=== PATIENT | male | born 1955 | race Caucasian/White ===

== ENCOUNTER 2017-05-22 13:18 | Emergency (ER) | payer MEDICAID ==
[~2017-05-22] VITALS: Ht 193 cm; Wt 107.2 kg
[~2017-05-22 13:18] MED LIST: AMLO5TAB PO; ASPI-845 PO; CYCL-1 PO; HYDR-565 PO; LISI-604 PO; ONDA4TAB12 PO; TRAM50TA2 PO
[2017-05-22 14:03] LABS: CLARITY,URINE CLEAR (Clear); COLOR,URINE YELLOW (Yellow); GLUCOSE, URINE NEGATIVE (Neg); KETONES,URINE NEGATIVE (Neg); LEUKOCYTE ESTERASE ,URINE SMALL (Neg); NITRITES, URINE NEGATIVE (Neg); OCCULT BLOOD,URINE SMALL (Neg); PH,URINE 5.5 (4.8-8.0); PROTEIN,URINE NEGATIVE (Neg); UROBILINOGEN,URINE 0.2 E.U/dL (0.2-1.0)
[2017-05-22 14:05] LABS: UA COLLECTION TYPE CLN CATCH MIDSTREAM
[2017-05-22 14:14] LABS: BACTERIA,URINE 1+ /HPF (Neg); SQUAMOUS EPITHELIAL CELL,UR FEW /LPF (FEW); WBC,URINE 50-100 /HPF (0-4)
[2017-05-22] MEDS ORDERED: LEVO500T2 PO (15:22)
[2017-05-22] MEDS ORDERED: HYDROcodone/acetaminophen 10/325mg tab PO ONE (15:30)
[2017-05-22] MEDS ORDERED: levoFLOXACIN 250mg tablet PO ONE (15:30)
[2017-05-22] MEDS ORDERED: HYDR-565 PO (15:32)
[2017-05-22 15:56] VITALS: BP 149/84
== END 2017-05-22 15:59 | disposition home or self-care (01) ==
LOC: ER 13:18
DX: N45.1 Epididymitis (principal); G43.909 Migraine, unspecified, not intractable, without status migrainosus; I48.91 Unspecified atrial fibrillation; I10 Essential (primary) hypertension; G89.29 Other chronic pain; Z79.82 Long term (current) use of aspirin
CPT/HCPCS: 76870; 81001; 87088; 99285

== ENCOUNTER 2017-08-01 10:16 | Emergency (ER) | payer MEDICAID, OTHER ==
[~2017-08-01] VITALS: Ht 185.4 cm; Wt 109.0 kg
[2017-08-01] MEDS ORDERED: LIDOcaine 1.5% w/epinephrine 1:200,000 5ml ampul IJ ONE (12:50)
[2017-08-01] MEDS ORDERED: TETanus/Pertussis (Acell)/Diphther VAC/PF (Tdap-Adult) 0.5ml syringe IM ONE (12:50)
[2017-08-01] MEDS ORDERED: bacitracin 15gm ointment TP ONE (12:50)
[2017-08-01] MEDS ORDERED: CLIN150C2 PO (13:33)
[2017-08-01] MEDS ORDERED: HYDR-3965 PO (13:33)
[2017-08-01] MEDS ORDERED: HYDROcodone/acetaminophen 5mg/325mg tablet PO ONE (13:35)
[2017-08-01 13:42] VITALS: BP 170/100
== END 2017-08-01 13:43 | disposition home or self-care (01) ==
LOC: ER 10:16
DX: L02.414 Cutaneous abscess of left upper limb (principal); I10 Essential (primary) hypertension; G89.29 Other chronic pain; I48.91 Unspecified atrial fibrillation; G43.909 Migraine, unspecified, not intractable, without status migrainosus; Z98.890 Other specified postprocedural states; Z79.82 Long term (current) use of aspirin; Z79.899 Other long term (current) drug therapy
CPT/HCPCS: 10060; 90471; 90715; 99283; A6266; A6449; J3490

== ENCOUNTER 2018-06-27 10:38 | Emergency (ER) | payer MEDICAID ==
[~2018-06-27] VITALS: Ht 193 cm; Wt 109.1 kg
[~2018-06-27 10:38] MED LIST changes: +HYDR-4353 PO; -HYDR-565 PO
[2018-06-27] MEDS ORDERED: normal saline 1000ML IV soln IVB ONE (11:35)
[2018-06-27 12:27] LABS: EOSINOPHILS # (AUTO) 0.2 X10'3 (0-0.9); EOSINOPHILS % (AUTO) 0.9 % (0-6)
[2018-06-27 12:31] LABS: BASOPHILS # (AUTO) 0.2 X10'3 (0-0.2); BASOPHILS % (AUTO) 0.9 % (0-1); HEMATOCRIT 48.5 % (42.0-52.0); HEMOGLOBIN 15.8 g/dl (14.0-17.9); LYMPHOCYTES # (AUTO) 9.1 X10'3 (1.1-4.8); LYMPHOCYTES % (AUTO) 49.6 % (21-51); MEAN CORPUSCULAR HEMOGLOBIN 28.5 PG (27.0-31.0); MEAN CORPUSCULAR HGB CONC 32.6 g/dL (33.0-36.5); MEAN CORPUSCULAR VOLUME 87.3 FL (78-98); MEAN PLATELET VOLUME 7.9 FL (7.4-10.4); MONOCYTES # (AUTO) 1.1 X10'3 (0-0.9); NEUTROPHILS # (AUTO) 7.8 X10'3 (1.8-7.7); NEUTROPHILS % (AUTO) 42.6 % (42-75); PLATELET COUNT 259 X10'3 (140-440); RED BLOOD COUNT 5.55 X10'6 (4.70-6.10); RED CELL DISTRIBUTION WIDTH 14.5 % (11.5-14.5); WHITE BLOOD COUNT 18.3 X10'3 (4.5-11.0)
[2018-06-27 12:41] LABS: PARTIAL THROMBOPLASTIN TIME 27 SECONDS (22-32)
[2018-06-27 12:44] LABS: ALANINE AMINOTRANSFERASE 27 U/L (12-78); ALBUMIN 3.8 G/DL (3.4-5.0); ALBUMIN/GLOBULIN RATIO 1.4 (1.1-1.5); ALKALINE PHOSPHATASE 94 IU/L (46-116); ANION GAP 8 (8-16); ASPARTATE AMINO TRANSFERASE 21 U/L (10-37); BILIRUBIN,TOTAL 0.3 MG/DL (0.1-1.0); BLOOD UREA NITROGEN 25 MG/DL (7-18); BUN/CREATININE RATIO 18.2 (5.4-32.0); CALCIUM 8.9 MG/DL (8.5-10.1); CHLORIDE 109 MMOL/L (99-107); CREATININE 1.37 MG/DL (0.60-1.10); GLUCOSE 93 MG/DL (70-104); POTASSIUM 4.1 MMOL/L (3.5-5.1); SODIUM 141 MMOL/L (135-145); TOTAL CARBON DIOXIDE 24.2 MMOL/L (24-32); TOTAL PROTEIN 6.6 G/DL (6.4-8.2); eGFR 52 ML/MIN
[2018-06-27 12:47] LABS: TROPONIN I < 0.04 NG/ML (0.0-0.05)
[2018-06-27 12:54] LABS: ETHANOL < 0.010 GM/DL (0.0-0.010)
[2018-06-27 13:03] LABS: CLARITY,URINE SLIGHTLY CLOUDY (Clear); COLOR,URINE YELLOW (Yellow); GLUCOSE, URINE NEGATIVE (Neg); KETONES,URINE NEGATIVE (Neg); LEUKOCYTE ESTERASE ,URINE NEGATIVE (Neg); NITRITES, URINE NEGATIVE (Neg); OCCULT BLOOD,URINE TRACE-LYSED (Neg); PH,URINE 5.5 (4.8-8.0); PROTEIN,URINE TRACE mg/dl (Neg); UROBILINOGEN,URINE 0.2 E.U/dL (0.2-1.0)
[2018-06-27 13:04] LABS: UA COLLECTION TYPE CLN CATCH MIDSTREAM
[2018-06-27 13:10] LABS: SQUAMOUS EPITHELIAL CELL,UR NONE SEEN /LPF (FEW)
[2018-06-27 13:16] LABS: BACTERIA,URINE FEW /HPF (Neg); WBC CLUMPS,URINE FEW /HPF (NEGATIVE)
[2018-06-27 14:00] VITALS: BP 163/108
[2018-06-27 14:12] LABS: PLATELET ESTIMATE NORMAL; TOTAL CELLS COUNTED 100
[2018-06-27 14:13] LABS: SMUDGE CELLS 2+
[2018-06-27] MEDS ORDERED: LISI40TA4 PO ×3 (15:02→15:09)
[2018-06-27] MEDS ORDERED: diazepam 5mg tablet PO ONE (15:10)
== END 2018-06-27 15:20 | disposition home or self-care (01) ==
LOC: ER 10:38
DX: I10 Essential (primary) hypertension (principal); D72.820 Lymphocytosis (symptomatic); R47.9 Unspecified speech disturbances; G89.29 Other chronic pain; I48.91 Unspecified atrial fibrillation; G43.909 Migraine, unspecified, not intractable, without status migrainosus; F17.210 Nicotine dependence, cigarettes, uncomplicated; Z79.899 Other long term (current) drug therapy; Z79.82 Long term (current) use of aspirin; Z98.890 Other specified postprocedural states
CPT/HCPCS: 36415; 70450; 70544; 70551; 71045; 80053; 80320; 81001; 82140; 82948; 84484; 85025; 85610; 85730; 87088; 93005; 99284; J7030

== ENCOUNTER 2019-09-23 22:20 | Inpatient (IN) | payer BC, MEDICAID ==
[~2019-09-23] VITALS: Ht 193 cm; Wt 113.6 kg
[~2019-09-23 22:20] MED LIST changes: +LISI40TA4 PO
[2019-09-23] MEDS ORDERED: metoprolol tartrate 1mg/ml inj IV ONE (22:35)
[2019-09-23] MEDS ORDERED: furosemide 10 MG/1 ML 10ml inj IV ONE (22:35)
[2019-09-23 23:16] LABS: BASOPHILS # (AUTO) 0.1 X10'3 (0-0.2); BASOPHILS % (AUTO) 0.4 % (0-1); LYMPHOCYTES % (AUTO) 54.1 % (21-51); MEAN CORPUSCULAR HGB CONC 31.8 g/dL (33.0-36.5); MONOCYTES # (AUTO) 0.8 X10'3 (0-0.9); MONOCYTES % (AUTO) 4.5 % (2-12); NEUTROPHILS # (AUTO) 6.6 X10'3 (1.8-7.7)
[2019-09-23 23:17] LABS: EOSINOPHILS # (AUTO) 0.2 X10'3 (0-0.9); EOSINOPHILS % (AUTO) 1.5 % (0-6); HEMATOCRIT 47.1 % (42.0-52.0); MEAN PLATELET VOLUME 8.5 FL (7.4-10.4); NEUTROPHILS % (AUTO) 39.5 % (42-75); PLATELET COUNT 222 X10'3 (140-440); RED BLOOD COUNT 5.35 X10'6 (4.70-6.10); RED CELL DISTRIBUTION WIDTH 15.7 % (11.5-14.5); WHITE BLOOD COUNT 16.7 X10'3 (4.5-11.0)
[2019-09-23] MEDS ORDERED: CefTRIAXone 2gm/D5W 50ml 50 ML IV ONE (23:30)
[2019-09-23] MEDS ORDERED: diltiazem 5mg/ml 5ml inj. IV ONE (23:30)
[2019-09-23] MEDS ORDERED: azithromycin/NS 500mg/250ml 250 ML IV ONE (23:30)
[2019-09-23 23:31] LABS: TOTAL CELLS COUNTED 100
[2019-09-23] MEDS ORDERED: CefTRIAXone inj 2,000 MG in normal saline 100ml IV soln 100 ML IV ONE (23:31)
[2019-09-23 23:32] LABS: PLATELET ESTIMATE NORMAL
[2019-09-23 23:44] LABS: ALANINE AMINOTRANSFERASE 68 U/L (12-78); ALBUMIN 3.7 G/DL (3.4-5.0); ALBUMIN/GLOBULIN RATIO 1.4 (1.1-1.5); ALKALINE PHOSPHATASE 106 IU/L (46-116); ANION GAP 6 (8-16); ASPARTATE AMINO TRANSFERASE 26 U/L (10-37); BILIRUBIN,TOTAL 0.5 MG/DL (0.1-1.0); BLOOD UREA NITROGEN 30 MG/DL (7-18); BUN/CREATININE RATIO 18.9 (5.4-32.0); CALCIUM 8.2 MG/DL (8.5-10.1); CHLORIDE 111 MMOL/L (99-107); CREATININE 1.59 MG/DL (0.60-1.10); GLUCOSE 102 MG/DL (70-104); POTASSIUM 4.2 MMOL/L (3.5-5.1); SODIUM 144 MMOL/L (135-145); TOTAL CARBON DIOXIDE 26.9 MMOL/L (24-32); TOTAL PROTEIN 6.4 G/DL (6.4-8.2); eGFR 44 ML/MIN
[2019-09-23] MEDS ORDERED: diltiazem-D5W 125mg/125ml 125 ML IV SCH (23:55)
[2019-09-23] MEDS ORDERED: diltiazem-NS 100mg/100ml 100 ML IV SCH (23:55)
[2019-09-24] VITALS (8 sets, daily range): BP systolic 116–161; BP diastolic 68–104
--- NOTE | 2019-09-24 00:20 | NUR ---
PT STOOD UP AND MOVED AROUND AND THEN WHEN GOT BACK TO BED REPORTED CP , 7 OUT OF 10 TO HIS LEFT CHEST, NON RADIATING AND NO OTHER SYMPTOMS. VSS, EGK COMPLETED AND DR. DORMAN UPDATED. NITRO PRN ORDERED AND PT GIVEN 1 TAB AND CP DOWN TO 4 OUT OF 10. PT AWAITING HOSPITALIST FOR ADMISSION. CARDIZIEM GTT INFUSING, ROCEFIN JUST FINISHED AND ZITHROMAX STARTED.
[2019-09-24] MEDS: nitroGLYCERIN 0.4mg SUBLingual tab SL PRN ×2 (00:38→00:46)
[2019-09-24] MEDS ORDERED: potassium CL 10mEq/100ml bag 100 ML IV PRN ×2 (00:45)
[2019-09-24] MEDS ORDERED: acetaminophen 325mg tablet PO PRN (00:45)
[2019-09-24] MEDS ORDERED: magnesium 2GM in 50ml NS 50 ML IV PRN (00:45)
[2019-09-24] MEDS ORDERED: magnesium 4gm in 100ml NS 100 ML IV PRN (00:45)
[2019-09-24] MEDS ORDERED: potassium Cl 20 mEq SR tablet PO PRN ×2 (00:45)
[2019-09-24] MEDS ORDERED: ondansetron/PF 4mg/2ml inj IV PRN (00:45)
[2019-09-24] MEDS ORDERED: magnesium Cl slow-release 64mg tablet PO PRN (00:45)
[2019-09-24] MEDS ORDERED: NO HOME MEDS (00:49)
--- NOTE | 2019-09-24 01:25 | NUR ---
PT NOW ADMITTED AND AWAITING IPA. DR. ROMERO CALLED TO UPDATE OF EVENTS IN MY NOTE 1 HR AGO ABOUT PT HAVING CP THAT WAS RELIEVED WITH 2 TABS OF NITRO. PT HAD REPORTED TO ME HE HAS BEEN HAVING EPISODES OF CP THAT ARE INTERMITTENT AND SHORT OVER THE PAST FEW MONTHS, BUT HAS NEVER HAD AN EPISODE SUCH THIS TONIGHT THAT SCARED HIM.
--- NOTE | 2019-09-24 01:52 | NUR ---
PT WITH STABLE VS. CONTINUES ON CARDIZIEM GTT AND ASITHROMYCIN STILL INFUSING. IN AFIB AT 85 HR WITH FREQUENT PVC'S. 6 HR TROP DUE AT 0430. PT AWAITING IPA.
--- NOTE | 2019-09-24 05:28 | NUR ---
rec'd report from KIKO Plata RN. per report vitals are stable. pt should arrive shortly to floor
--- NOTE | 2019-09-24 05:35 | NUR ---
PT TAKEN TO ROOM 3028 B PCU CARIDIZEM DRIP RUNNING AT 5 ML / HR HUNG AT 0046 VSS 138/85 RR23 HR 86 97 % RA PRO B 6085/ CA 8.2 WBC 16.7 TROP <0.04 BUN 30
--- NOTE | 2019-09-24 05:45 | NUR ---
pt arrived to the unit via wheelchair and ambulated to bed. refused gown at this time. pt voided in bathroom. settled into bed and oriented to unit. Robin carter at 5mc. Dr. Wyman to bedside to speak with pt.
--- NOTE | 2019-09-24 06:19 | NUR ---
Problems reprioritized. Patient report given, questions answered & plan of care reviewed with Marina HAWKINS.
--- NOTE | 2019-09-24 06:23 | NUR ---
Patient in room PCU 3028. I have received report from Ana HAKWINS and had the opportunity to ask questions and assume patient care.
[2019-09-24] MEDS: K and/or MAG REPLACEMENT MC SCH ×2 (07:47→20:07)
--- NOTE | 2019-09-24 09:10 | NUR ---
Dr Almanza at bedside with RN, received verbal orders to start the patient on PO Cardizem and transition off the Cardizem gtt, orders for IV Lasix 20mg BID and tramadol prn for pain. Also received orders for lab draws. Will continue to monitor the patient closely.
[2019-09-24] MEDS: furosemide 20 MG/2 ML vial IV SCH ×2 (09:27→19:11)
[2019-09-24] MEDS: traMADol 50MG tablet PO PRN ×2 (09:27→14:52)
[2019-09-24] MEDS: diltiazem 30mg tablet PO SCH ×3 (09:27→19:12)
[2019-09-24 10:23] LABS: BASOPHILS # (AUTO) 0.1 X10'3 (0-0.2); BASOPHILS % (AUTO) 0.6 % (0-1); EOSINOPHILS # (AUTO) 0.3 X10'3 (0-0.9); EOSINOPHILS % (AUTO) 2.1 % (0-6); HEMATOCRIT 46.8 % (42.0-52.0); LYMPHOCYTES # (AUTO) 8.2 X10'3 (1.1-4.8); LYMPHOCYTES % (AUTO) 52.6 % (21-51); MEAN CORPUSCULAR HEMOGLOBIN 28.2 PG (27.0-31.0); MEAN PLATELET VOLUME 8.3 FL (7.4-10.4); MONOCYTES # (AUTO) 0.8 X10'3 (0-0.9); MONOCYTES % (AUTO) 4.8 % (2-12); NEUTROPHILS # (AUTO) 6.3 X10'3 (1.8-7.7); NEUTROPHILS % (AUTO) 39.9 % (42-75); PLATELET COUNT 206 X10'3 (140-440); RED BLOOD COUNT 5.31 X10'6 (4.70-6.10); RED CELL DISTRIBUTION WIDTH 15.4 % (11.5-14.5); WHITE BLOOD COUNT 15.7 X10'3 (4.5-11.0)
[2019-09-24 10:30] LABS: ALANINE AMINOTRANSFERASE 62 U/L (12-78); ALBUMIN 3.3 G/DL (3.4-5.0); ALBUMIN/GLOBULIN RATIO 1.1 (1.1-1.5); ALKALINE PHOSPHATASE 96 IU/L (46-116); ANION GAP 7 (8-16); ASPARTATE AMINO TRANSFERASE 25 U/L (10-37); BILIRUBIN,TOTAL 0.5 MG/DL (0.1-1.0); BLOOD UREA NITROGEN 28 MG/DL (7-18); BUN/CREATININE RATIO 19.4 (5.4-32.0); CALCIUM 8.4 MG/DL (8.5-10.1); CHLORIDE 106 MMOL/L (99-107); CREATININE 1.44 MG/DL (0.60-1.10); GLUCOSE 95 MG/DL (70-104); POTASSIUM 3.8 MMOL/L (3.5-5.1); SODIUM 140 MMOL/L (135-145); TOTAL CARBON DIOXIDE 27.1 MMOL/L (24-32); TOTAL PROTEIN 6.3 G/DL (6.4-8.2); eGFR 49 ML/MIN
[2019-09-24 11:34] LABS: PLATELET ESTIMATE NORMAL; TOTAL CELLS COUNTED 100
[2019-09-24 11:35] LABS: SMUDGE CELLS 2+
--- NOTE | 2019-09-24 18:08 | NUR ---
Problems reprioritized. Patient report given, questions answered & plan of care reviewed with Janusz HAWKINS.
--- NOTE | 2019-09-24 18:11 | NUR ---
Patient in room PCU 3028. I have received report from Marina HAWKINS and had the opportunity to ask questions and assume patient care.
[2019-09-24] MEDS: apixaban 5mg tablet PO SCH (19:11)
[2019-09-24 19:35] LABS: CLARITY,URINE CLEAR (Clear); COLOR,URINE YELLOW (Yellow); GLUCOSE, URINE NEGATIVE (Neg); KETONES,URINE NEGATIVE (Neg); LEUKOCYTE ESTERASE ,URINE NEGATIVE (Neg); NITRITES, URINE NEGATIVE (Neg); OCCULT BLOOD,URINE NEGATIVE (Neg); PROTEIN,URINE NEGATIVE (Neg); UROBILINOGEN,URINE 0.2 E.U/dL (0.2-1.0)
[2019-09-24 19:38] LABS: UA COLLECTION TYPE CLN CATCH MIDSTREAM
[2019-09-25] MEDS: traMADol 50MG tablet PO PRN (00:21)
[2019-09-25 02:00] VITALS: BP 132/73
[2019-09-25] MEDS: diltiazem 30mg tablet PO SCH ×4 (02:32→19:15)
[2019-09-25 05:04] LABS: BASOPHILS # (AUTO) 0.1 X10'3 (0-0.2); BASOPHILS % (AUTO) 0.4 % (0-1); MONOCYTES # (AUTO) 0.9 X10'3 (0-0.9)
[2019-09-25 05:09] LABS: EOSINOPHILS # (AUTO) 0.4 X10'3 (0-0.9); HEMATOCRIT 45.4 % (42.0-52.0); HEMOGLOBIN 14.7 g/dl (14.0-17.9); LYMPHOCYTES # (AUTO) 10.4 X10'3 (1.1-4.8); LYMPHOCYTES % (AUTO) 58.9 % (21-51); MEAN CORPUSCULAR HEMOGLOBIN 28.4 PG (27.0-31.0); MEAN CORPUSCULAR HGB CONC 32.3 g/dL (33.0-36.5); MEAN PLATELET VOLUME 8.1 FL (7.4-10.4); MONOCYTES % (AUTO) 5.1 % (2-12); NEUTROPHILS # (AUTO) 5.9 X10'3 (1.8-7.7); NEUTROPHILS % (AUTO) 33.6 % (42-75); PLATELET COUNT 217 X10'3 (140-440); RED BLOOD COUNT 5.17 X10'6 (4.70-6.10); RED CELL DISTRIBUTION WIDTH 15.6 % (11.5-14.5); WHITE BLOOD COUNT 17.6 X10'3 (4.5-11.0)
[2019-09-25 05:28] LABS: ALBUMIN 3.2 G/DL (3.4-5.0); ANION GAP 6 (8-16); BLOOD UREA NITROGEN 29 MG/DL (7-18); BUN/CREATININE RATIO 21.5 (5.4-32.0); CALCIUM 7.8 MG/DL (8.5-10.1); CHLORIDE 107 MMOL/L (99-107); CHOLESTEROL 108 MG/DL (0-200); CREATININE 1.35 MG/DL (0.60-1.10); GLUCOSE 85 MG/DL (70-104); HDL CHOLESTEROL 36 MG/DL (35-60); LDL CHOLESTEROL 65 MG/DL (50-100); POTASSIUM 4.2 MMOL/L (3.5-5.1); SODIUM 141 MMOL/L (135-145); TRIGLYCERIDES 40 MG/DL (20-135); eGFR 53 ML/MIN
--- NOTE | 2019-09-25 06:16 | NUR ---
Problems reprioritized. Patient report given, questions answered & plan of care reviewed with Hilda HAWKINS.
--- NOTE | 2019-09-25 06:28 | NUR ---
Patient in room PCU 3028. I have received report from Janusz HAWKINS and had the opportunity to ask questions and assume patient care.
[2019-09-25 07:00] VITALS: BP 139/93
[2019-09-25] MEDS: furosemide 20 MG/2 ML vial IV SCH ×2 (07:55→19:14)
[2019-09-25] MEDS: apixaban 5mg tablet PO SCH ×2 (07:55→19:15)
[2019-09-25] MEDS: K and/or MAG REPLACEMENT MC SCH ×2 (08:00→19:53)
[2019-09-25 08:30] LABS: TOTAL CELLS COUNTED 100
[2019-09-25 08:31] LABS: PLATELET ESTIMATE NORMAL
[2019-09-25 08:32] LABS: SMUDGE CELLS 3+
--- NOTE | 2019-09-25 08:52 | NUR ---
Dr. Almanza at bedside with patient and nurse. New orders Celebrax 200mg now and then daily to help with joint pain. [place] if new medications is ineffective, let MD be aware of outcome. MD aware of WBC 17.6, No new orders at this time. Patient is to be up and walking around unit to further assess ability to be discharged. PT is aware and PT eval done today. Will continue to monitor.
[2019-09-25] MEDS: celeCOXIB 100mg capsule PO SCH (09:49)
[2019-09-25] MEDS ORDERED: pneumococcal 23-VAL P-sac vacc 25 mcg/0.5ml vial IMVAC ONE (10:00)
--- NOTE | 2019-09-25 10:43 | NUR ---
Dr. Almanza aware of patient and ambulation. Patient was able to ambulate around unit with no assistance needed. Patient did state a SOB upon resting, but overall no pain in chest and no s/s of SOB during ambulation. During assessment patient stated that he would feel more comfortable staying another night stay here at hospital. Dr. Almanza was notified on the completion of ambulation and agreed with patient to stay another night with continue therapy. New Orders [place] 5 PRN for pain Q4hr. We will continue to monitor.
[2019-09-25 11:00] VITALS: BP 143/87
[2019-09-25] MEDS: HYDROcodone/acetaminophen 5mg/325mg tablet PO PRN ×2 (13:41→19:16)
[2019-09-25 15:00] VITALS: BP 129/69
[2019-09-25 18:00] VITALS: BP 141/78
--- NOTE | 2019-09-25 18:04 | NUR ---
Problems reprioritized. Patient report given, questions answered & plan of care reviewed with Yarelis omer .
--- NOTE | 2019-09-25 18:13 | NUR ---
Patient in room PCU 3028. I have received report from Hilda HAWKINS and had the opportunity to ask questions and assume patient care.
[2019-09-25 22:00] VITALS: BP 141/78
[2019-09-26] MEDS: diltiazem 30mg tablet PO SCH ×2 (01:42→07:41)
[2019-09-26] MEDS: HYDROcodone/acetaminophen 5mg/325mg tablet PO PRN ×2 (01:43→07:40)
[2019-09-26 02:17] VITALS: BP 145/90
[2019-09-26 05:10] LABS: BASOPHILS # (AUTO) 0.1 X10'3 (0-0.2); BASOPHILS % (AUTO) 0.3 % (0-1); HEMOGLOBIN 15.2 g/dl (14.0-17.9); MEAN PLATELET VOLUME 8.2 FL (7.4-10.4)
[2019-09-26 05:12] LABS: EOSINOPHILS # (AUTO) 0.4 X10'3 (0-0.9); EOSINOPHILS % (AUTO) 2.1 % (0-6); HEMATOCRIT 47.9 % (42.0-52.0); LYMPHOCYTES # (AUTO) 13.9 X10'3 (1.1-4.8); LYMPHOCYTES % (AUTO) 65.2 % (21-51); MEAN CORPUSCULAR HEMOGLOBIN 28.4 PG (27.0-31.0); MEAN CORPUSCULAR HGB CONC 31.8 g/dL (33.0-36.5); MEAN CORPUSCULAR VOLUME 89.4 FL (78-98); MONOCYTES # (AUTO) 0.8 X10'3 (0-0.9); MONOCYTES % (AUTO) 3.7 % (2-12); NEUTROPHILS # (AUTO) 6.1 X10'3 (1.8-7.7); NEUTROPHILS % (AUTO) 28.7 % (42-75); PLATELET COUNT 227 X10'3 (140-440); RED BLOOD COUNT 5.36 X10'6 (4.70-6.10); RED CELL DISTRIBUTION WIDTH 15.5 % (11.5-14.5); WHITE BLOOD COUNT 21.4 X10'3 (4.5-11.0)
[2019-09-26 05:33] LABS: ALBUMIN 3.2 G/DL (3.4-5.0); ANION GAP 5 (8-16); BLOOD UREA NITROGEN 30 MG/DL (7-18); BUN/CREATININE RATIO 20.8 (5.4-32.0); CALCIUM 8.4 MG/DL (8.5-10.1); CHLORIDE 104 MMOL/L (99-107); CREATININE 1.44 MG/DL (0.60-1.10); GLUCOSE 92 MG/DL (70-104); SODIUM 139 MMOL/L (135-145); TOTAL CARBON DIOXIDE 29.9 MMOL/L (24-32); eGFR 49 ML/MIN
--- NOTE | 2019-09-26 06:05 | NUR ---
Problems reprioritized. Patient report given, questions answered & plan of care reviewed with Hilda HAWKINS.
--- NOTE | 2019-09-26 06:26 | NUR ---
Patient in room PCU 3028. I have received report from Janusz HAWKINS and had the opportunity to ask questions and assume patient care.
[2019-09-26 06:38] LABS: PLATELET ESTIMATE NORMAL; TOTAL CELLS COUNTED 100
[2019-09-26 07:00] VITALS: BP 141/93
[2019-09-26] MEDS: apixaban 5mg tablet PO SCH (07:40)
[2019-09-26] MEDS: celeCOXIB 100mg capsule PO SCH (07:40)
[2019-09-26] MEDS: furosemide 20 MG/2 ML vial IV SCH (07:42)
[2019-09-26] MEDS: K and/or MAG REPLACEMENT MC SCH (08:00)
--- NOTE | 2019-09-26 10:42 | NUR ---
Dr. Almanza at bedside with patient and Nurse. orders is to discharge pt and to follow up and take all medications as planned. Will continue to provide care til discharge instructions are received.
[2019-09-26] MEDS ORDERED: HYDR-4383 PO (11:00)
[2019-09-26] MEDS ORDERED: DILT240C90 PO (11:00)
[2019-09-26] MEDS ORDERED: CELE100C98 PO (11:00)
[2019-09-26] MEDS ORDERED: FURO-150 PO (11:00)
[2019-09-26] MEDS ORDERED: APIX5TAB3 PO (11:00)
--- NOTE | 2019-09-26 11:56 | NUR ---
Patient OK to discharge per MD Orders. Patients tele was removed and returned and PIV taken out. Patient tolerated well. All discharge instructions were gone over and the medications were verified to patient and pharmacy. Patient was educated on the purpose of visit and the follow up instructions. Patient verbalized an understanding of following up with PCP within a week to stabilize A fib and cancer and other health issues. Patients items were collected and sent with patient. Patient was escorted via wheelchair by RN to the front of the lobby and into a private vehicle attended by his . , Jamia, was also educated on discharge instructions and medication regiment.
== END 2019-09-26 12:04 | disposition home or self-care (01) | DRG 292 ==
LOC: ER 22:21 → ED HOLD 09-24 00:54 → PCU 3S 09-24 05:36
PROVIDERS: ADMIT Internal Medicine; ATTEND Internal Medicine
PROC: 3E0234Z Introduction of Serum, Toxoid and Vaccine into Muscle, Percutaneous Approach (ICD-10-PCS; principal; 2019-09-25)
DX: I13.0 Hypertensive heart and chronic kidney disease with heart failure and stage 1 through stage 4 chronic kidney disease, or unspecified chronic kidney disease (principal); C85.90 Non-Hodgkin lymphoma, unspecified, unspecified site; C92.10 Chronic myeloid leukemia, BCR/ABL-positive, not having achieved remission; N17.9 Acute kidney failure, unspecified; I48.0 Paroxysmal atrial fibrillation; I27.20 Pulmonary hypertension, unspecified; G47.30 Sleep apnea, unspecified; N18.3 Chronic kidney disease, stage 3 (moderate); R06.89 Other abnormalities of breathing; G43.909 Migraine, unspecified, not intractable, without status migrainosus; M54.9 Dorsalgia, unspecified; M25.50 Pain in unspecified joint; G89.29 Other chronic pain; I50.813 Acute on chronic right heart failure; I73.9 Peripheral vascular disease, unspecified; Z79.01 Long term (current) use of anticoagulants; Z79.899 Other long term (current) drug therapy; Z87.891 Personal history of nicotine dependence; Z23 Encounter for immunization
CPT/HCPCS: 36415; 71045; 80048; 80053; 80061; 81003; 83735; 83880; 84145; 84484; 85025; 87081; 90732; 93005; 93306; 96365; 96368; 96375; 97116; 97161; 97530; 99291; G0378; J0456; J0696; J1940; J3490

== ENCOUNTER 2019-10-21 17:29 | Emergency (ER) | payer BC, MEDICAID ==
[~2019-10-21] VITALS: Ht 193 cm; Wt 118.2 kg
[~2019-10-21 17:29] MED LIST changes: -AMLO5TAB PO; +APIX5TAB3 PO; -ASPI-845 PO; +CELE100C98 PO; -CYCL-1 PO; +DILT240C90 PO; +FURO-150 PO; -HYDR-4353 PO; +HYDR-4383 PO; -LISI-604 PO; -LISI40TA4 PO; -ONDA4TAB12 PO; -TRAM50TA2 PO
[2019-10-21] MEDS ORDERED: diltiazem-D5W 125mg/125ml 125 ML IV ONE (17:51)
[2019-10-21] MEDS ORDERED: diltiazem-NS 100mg/100ml 100 ML IV SCH (17:54)
[2019-10-21] MEDS ORDERED: diltiazem 5mg/ml 5ml inj. IV ONE ×3 (17:55→18:55)
[2019-10-21 18:17] LABS: BASOPHILS # (AUTO) 0.2 X10'3 (0-0.2); EOSINOPHILS # (AUTO) 0.3 X10'3 (0-0.9); MONOCYTES # (AUTO) 1.3 X10'3 (0-0.9); MONOCYTES % (AUTO) 5.5 % (2-12); RED CELL DISTRIBUTION WIDTH 15.1 % (11.5-14.5); WHITE BLOOD COUNT 23.5 X10'3 (4.5-11.0)
[2019-10-21 18:19] LABS: BASOPHILS % (AUTO) 0.8 % (0-1); EOSINOPHILS % (AUTO) 1.3 % (0-6); HEMATOCRIT 50.8 % (42.0-52.0); HEMOGLOBIN 16.2 g/dl (14.0-17.9); LYMPHOCYTES # (AUTO) 11.3 X10'3 (1.1-4.8); LYMPHOCYTES % (AUTO) 48.1 % (21-51); MEAN CORPUSCULAR HEMOGLOBIN 28.2 PG (27.0-31.0); MEAN CORPUSCULAR VOLUME 88.1 FL (78-98); NEUTROPHILS # (AUTO) 10.4 X10'3 (1.8-7.7); NEUTROPHILS % (AUTO) 44.3 % (42-75); PLATELET COUNT 263 X10'3 (140-440); RED BLOOD COUNT 5.76 X10'6 (4.70-6.10)
[2019-10-21 18:38] LABS: ALANINE AMINOTRANSFERASE 42 U/L (12-78); ALBUMIN 3.9 G/DL (3.4-5.0); ALBUMIN/GLOBULIN RATIO 1.2 (1.1-1.5); ALKALINE PHOSPHATASE 124 IU/L (46-116); ANION GAP 11 (8-16); ASPARTATE AMINO TRANSFERASE 17 U/L (10-37); BILIRUBIN,TOTAL 0.7 MG/DL (0.1-1.0); BLOOD UREA NITROGEN 26 MG/DL (7-18); BUN/CREATININE RATIO 18.8 (5.4-32.0); CALCIUM 8.8 MG/DL (8.5-10.1); CHLORIDE 106 MMOL/L (99-107); CREATININE 1.38 MG/DL (0.60-1.10); GLUCOSE 80 MG/DL (70-104); POTASSIUM 3.8 MMOL/L (3.5-5.1); SODIUM 142 MMOL/L (135-145); TOTAL PROTEIN 7.2 G/DL (6.4-8.2); eGFR 52 ML/MIN
[2019-10-21 18:46] LABS: MAGNESIUM 1.9 MG/DL (1.5-2.4)
[2019-10-21] MEDS ORDERED: FURO-150 PO (19:07)
[2019-10-21] MEDS ORDERED: APIX5TAB3 PO (19:07)
[2019-10-21] MEDS ORDERED: DILT240C88 PO (19:08)
[2019-10-21] MEDS ORDERED: furosemide 10 MG/1 ML 10ml inj IV ONE (19:15)
[2019-10-21] MEDS ORDERED: diltiazem CD 300mg capsule (once-daily) PO STA (19:36)
[2019-10-21 19:38] LABS: PLATELET ESTIMATE NORMAL
[2019-10-21] MEDS ORDERED: diltiazem CD 180mg cap (once-daily) PO STA (19:42)
[2019-10-21] MEDS ORDERED: DILT300C35 PO (19:46)
[2019-10-21 19:52] VITALS: BP 115/54
[2019-10-22 10:58] LABS: SMUDGE CELLS 2+; TOTAL CELLS COUNTED 100
[2019-10-22 10:59] LABS: BURR CELLS 1+; ELLIPTOCYTES FEW
--- NOTE | 2019-10-22 11:28 | NUR ---
Lab called regarding change in patients differential. Results had been wrong so it was being adjusted. Spoke with Dr. Blue regarding results and increase in neutrophils, he stated due to the fact that patient did not have Bands. No further action was needed.
== END 2019-10-21 19:54 | disposition home or self-care (01) ==
LOC: ER 17:30
DX: I48.91 Unspecified atrial fibrillation (principal); G43.909 Migraine, unspecified, not intractable, without status migrainosus; I10 Essential (primary) hypertension; G89.29 Other chronic pain; F41.9 Anxiety disorder, unspecified; Z86.2 Personal history of diseases of the blood and blood-forming organs and certain disorders involving the immune mechanism; Z98.890 Other specified postprocedural states; Z79.01 Long term (current) use of anticoagulants; Z79.899 Other long term (current) drug therapy
CPT/HCPCS: 36415; 71045; 80053; 83735; 83880; 84484; 85007; 85025; 93005; 96365; 96375; 96376; 99285; J1940; J3490

== ENCOUNTER 2019-11-16 15:08 | Emergency (ER) | payer BC, MEDICAID ==
[~2019-11-16] VITALS: Ht 193 cm; Wt 129.1 kg
[~2019-11-16 15:08] MED LIST changes: -CELE100C98 PO; +DILT240C88 PO; -DILT240C90 PO; +DILT300C35 PO; -HYDR-4383 PO
--- NOTE | 2019-11-16 15:21 | NUR ---
{null, PT HAS GIVEN PERMISSION FOR ALL INFORMATION REGARDING HIS STATUS BE GIVEN TO HIS ISIDRO RAY: OR [phone] PHONE CONTACT }
[2019-11-16] MEDS ORDERED: furosemide 40mg/4ml inj IV ONE (15:30)
[2019-11-16] MEDS ORDERED: furosemide 10 MG/1 ML 10ml inj IV ONE (15:35)
[2019-11-16 16:01] LABS: BASOPHILS # (AUTO) 0.1 X10'3 (0-0.2); BASOPHILS % (AUTO) 0.7 % (0-1); EOSINOPHILS # (AUTO) 0.2 X10'3 (0-0.9); HEMOGLOBIN 15.4 g/dl (14.0-17.9); WHITE BLOOD COUNT 16.7 X10'3 (4.5-11.0)
[2019-11-16 16:03] LABS: EOSINOPHILS % (AUTO) 1.2 % (0-6); HEMATOCRIT 48.5 % (42.0-52.0); MEAN CORPUSCULAR HEMOGLOBIN 27.3 PG (27.0-31.0); MEAN CORPUSCULAR HGB CONC 31.7 g/dL (33.0-36.5); MEAN CORPUSCULAR VOLUME 85.9 FL (78-98); MONOCYTES % (AUTO) 5.8 % (2-12); NEUTROPHILS # (AUTO) 7.4 X10'3 (1.8-7.7); NEUTROPHILS % (AUTO) 44.3 % (42-75); PLATELET COUNT 235 X10'3 (140-440); RED BLOOD COUNT 5.65 X10'6 (4.70-6.10); RED CELL DISTRIBUTION WIDTH 15.4 % (11.5-14.5)
[2019-11-16 16:12] LABS: ALANINE AMINOTRANSFERASE 41 U/L (12-78); ALBUMIN 3.6 G/DL (3.4-5.0); ALBUMIN/GLOBULIN RATIO 1.3 (1.1-1.5); ALKALINE PHOSPHATASE 120 IU/L (46-116); ANION GAP 6 (8-16); ASPARTATE AMINO TRANSFERASE 28 U/L (10-37); BILIRUBIN,TOTAL 0.4 MG/DL (0.1-1.0); BLOOD UREA NITROGEN 39 MG/DL (7-18); BUN/CREATININE RATIO 18.7 (5.4-32.0); CALCIUM 8.4 MG/DL (8.5-10.1); CHLORIDE 107 MMOL/L (99-107); CREATININE 2.09 MG/DL (0.60-1.10); GLUCOSE 154 MG/DL (70-104); POTASSIUM 4.5 MMOL/L (3.5-5.1); SODIUM 140 MMOL/L (135-145); TOTAL PROTEIN 6.3 G/DL (6.4-8.2); eGFR 32 ML/MIN
[2019-11-16 16:23] LABS: TOTAL CELLS COUNTED 100
[2019-11-16 16:25] LABS: ACANTHOCYTES FEW; BURR CELLS FEW; PLATELET ESTIMATE NORMAL; SMUDGE CELLS 1+
[2019-11-16 17:14] VITALS: BP 140/92
== END 2019-11-16 17:15 | disposition home or self-care (01) ==
LOC: ER 15:09
DX: I50.9 Heart failure, unspecified (principal); I27.20 Pulmonary hypertension, unspecified; I11.0 Hypertensive heart disease with heart failure; I48.91 Unspecified atrial fibrillation; G89.29 Other chronic pain; F41.9 Anxiety disorder, unspecified; Z98.890 Other specified postprocedural states; Z79.01 Long term (current) use of anticoagulants; Z79.899 Other long term (current) drug therapy
CPT/HCPCS: 71045; 80053; 83880; 84484; 85007; 85025; 93005; 96374; 99285; J1940

== ENCOUNTER 2019-11-21 19:30 | Emergency (ER) | payer BC, MEDICAID ==
[~2019-11-21] VITALS: Ht 193 cm; Wt 136.4 kg
[2019-11-21] MEDS ORDERED: FURO40TA4 PO (19:59)
[2019-11-21] MEDS ORDERED: IBUP-1984 PO (19:59)
[2019-11-21 20:11] LABS: ALANINE AMINOTRANSFERASE 39 U/L (12-78); ALBUMIN 3.6 G/DL (3.4-5.0); ALBUMIN/GLOBULIN RATIO 1.4 (1.1-1.5); ALKALINE PHOSPHATASE 119 IU/L (46-116); ANION GAP 9 (8-16); ASPARTATE AMINO TRANSFERASE 25 U/L (10-37); BILIRUBIN,TOTAL 0.7 MG/DL (0.1-1.0); BLOOD UREA NITROGEN 41 MG/DL (7-18); BUN/CREATININE RATIO 21.6 (5.4-32.0); CALCIUM 8.8 MG/DL (8.5-10.1); CHLORIDE 108 MMOL/L (99-107); GLUCOSE 125 MG/DL (70-104); POTASSIUM 4.3 MMOL/L (3.5-5.1); SODIUM 141 MMOL/L (135-145); TOTAL CARBON DIOXIDE 24.4 MMOL/L (24-32); TOTAL PROTEIN 6.2 G/DL (6.4-8.2); eGFR 36 ML/MIN
[2019-11-21 20:15] LABS: BASOPHILS # (AUTO) 0.2 X10'3 (0-0.2); BASOPHILS % (AUTO) 1.1 % (0-1); EOSINOPHILS # (AUTO) 0.3 X10'3 (0-0.9); HEMATOCRIT 46.2 % (42.0-52.0); HEMOGLOBIN 14.6 g/dl (14.0-17.9); LYMPHOCYTES # (AUTO) 5.1 X10'3 (1.1-4.8); MEAN CORPUSCULAR HEMOGLOBIN 26.8 PG (27.0-31.0); MEAN CORPUSCULAR HGB CONC 31.5 g/dL (33.0-36.5); MEAN PLATELET VOLUME 8.7 FL (7.4-10.4); MONOCYTES # (AUTO) 1.1 X10'3 (0-0.9); MONOCYTES % (AUTO) 7.4 % (2-12); NEUTROPHILS # (AUTO) 7.6 X10'3 (1.8-7.7); NEUTROPHILS % (AUTO) 53.5 % (42-75); PLATELET COUNT 233 X10'3 (140-440); RED BLOOD COUNT 5.43 X10'6 (4.70-6.10); RED CELL DISTRIBUTION WIDTH 15.4 % (11.5-14.5); WHITE BLOOD COUNT 14.2 X10'3 (4.5-11.0)
[2019-11-21] MEDS ORDERED: furosemide 10 MG/1 ML 10ml inj IV ONE (21:40)
[2019-11-21] MEDS ORDERED: diltiazem 5mg/ml 5ml inj. IV ONE (21:40)
[2019-11-21 22:31] VITALS: BP 122/99
== END 2019-11-21 22:35 | disposition home or self-care (01) ==
LOC: ER 19:31
DX: I50.9 Heart failure, unspecified (principal); R06.02 Shortness of breath; G43.909 Migraine, unspecified, not intractable, without status migrainosus; I48.91 Unspecified atrial fibrillation; I11.0 Hypertensive heart disease with heart failure; Z86.2 Personal history of diseases of the blood and blood-forming organs and certain disorders involving the immune mechanism; Z87.440 Personal history of urinary (tract) infections; G89.29 Other chronic pain; F41.9 Anxiety disorder, unspecified; Z98.890 Other specified postprocedural states; F17.200 Nicotine dependence, unspecified, uncomplicated; Z79.899 Other long term (current) drug therapy
CPT/HCPCS: 36415; 71045; 80053; 83880; 84145; 84484; 85025; 93005; 96374; 96375; 99285; J1940; J3490

== ENCOUNTER 2019-11-25 17:17 | Inpatient (IN) | payer BC, MEDICAID ==
[~2019-11-25] VITALS: Ht 193 cm; Wt 133.6 kg
[~2019-11-25 17:17] MED LIST changes: -DILT240C88 PO; -FURO-150 PO; +FURO40TA4 PO; +IBUP-1984 PO
[2019-11-25] MEDS ORDERED: magnesium 2GM in 50ml NS 50 ML IV ONE (17:45)
[2019-11-25] MEDS ORDERED: normal saline 1000ml 1,000 ML IV ONE (17:45)
[2019-11-25] MEDS ORDERED: diltiazem 5mg/ml 5ml inj. IV ONE ×3 (17:45→19:40)
[2019-11-25 17:58] LABS: BASOPHILS # (AUTO) 0.1 X10'3 (0-0.2); BASOPHILS % (AUTO) 0.6 % (0-1); EOSINOPHILS # (AUTO) 0.1 X10'3 (0-0.9); EOSINOPHILS % (AUTO) 0.6 % (0-6); LYMPHOCYTES # (AUTO) 5.9 X10'3 (1.1-4.8); LYMPHOCYTES % (AUTO) 33.5 % (21-51); MEAN PLATELET VOLUME 8.9 FL (7.4-10.4); MONOCYTES % (AUTO) 5.6 % (2-12); NEUTROPHILS # (AUTO) 10.4 X10'3 (1.8-7.7); NEUTROPHILS % (AUTO) 59.7 % (42-75); PLATELET COUNT 227 X10'3 (140-440); WHITE BLOOD COUNT 17.5 X10'3 (4.5-11.0)
[2019-11-25] MEDS ORDERED: diltiazem-D5W 125mg/125ml 125 ML IV SCH (18:15)
[2019-11-25 18:22] LABS: ALANINE AMINOTRANSFERASE 47 U/L (12-78); ALBUMIN 3.9 G/DL (3.4-5.0); ALBUMIN/GLOBULIN RATIO 1.4 (1.1-1.5); ALKALINE PHOSPHATASE 124 IU/L (46-116); ANION GAP 8 (8-16); ASPARTATE AMINO TRANSFERASE 30 U/L (10-37); BLOOD UREA NITROGEN 39 MG/DL (7-18); BUN/CREATININE RATIO 18.3 (5.4-32.0); CALCIUM 9.2 MG/DL (8.5-10.1); CHLORIDE 106 MMOL/L (99-107); CREATININE 2.13 MG/DL (0.60-1.10); GLUCOSE 125 MG/DL (70-104); POTASSIUM 3.9 MMOL/L (3.5-5.1); SODIUM 142 MMOL/L (135-145); TOTAL CARBON DIOXIDE 28.3 MMOL/L (24-32); TOTAL PROTEIN 6.7 G/DL (6.4-8.2); eGFR 31 ML/MIN
[2019-11-25] MEDS: diltiazem-NS 100mg/100ml 100 ML IV SCH (18:28)
[2019-11-25 18:32] LABS: HEMATOCRIT 48.5 % (42.0-52.0); HEMOGLOBIN 15.7 g/dl (14.0-17.9); MEAN CORPUSCULAR HEMOGLOBIN 27.2 PG (27.0-31.0); MEAN CORPUSCULAR HGB CONC 32.3 g/dL (33.0-36.5); MEAN CORPUSCULAR VOLUME 84.3 FL (78-98); RED BLOOD COUNT 5.75 X10'6 (4.70-6.10); RED CELL DISTRIBUTION WIDTH 14.9 % (11.5-14.5)
[2019-11-25] MEDS ORDERED: furosemide 10 MG/1 ML 10ml inj IV ONE ×2 (18:45→21:15)
--- NOTE | 2019-11-25 19:36 | NUR ---
Desat to 90% with mvmt to edge of bed for urination. Cannula initiated at 1 LPM
[2019-11-25] MEDS ORDERED: ondansetron/PF 4mg/2ml inj IV PRN (21:10)
[2019-11-25] MEDS ORDERED: magnesium hydroxide 30ml (MOM) UD suspension PO PRN (21:10)
[2019-11-25] MEDS ORDERED: potassium Cl 20 mEq SR tablet PO PRN (21:10)
[2019-11-25] MEDS ORDERED: potassium CL 10mEq/100ml bag 100 ML IV PRN ×2 (21:10)
[2019-11-25] MEDS ORDERED: mag hydrox/Alum hydrox/simeth 30ml oral suspension PO PRN (21:10)
[2019-11-25] MEDS ORDERED: acetaminophen 325mg tablet PO PRN (21:10)
--- NOTE | 2019-11-25 22:04 | NUR ---
Patient in room ED 5 to be transferred to room 3021A. I have received report from ROSS Ugalde and had the opportunity to ask questions and assume patient care.
[2019-11-25 22:20] VITALS: BP 146/117
[2019-11-25 23:00] VITALS: BP 133/116
[2019-11-26] VITALS (11 sets, daily range): BP systolic 119–157; BP diastolic 78–110
[2019-11-26] MEDS: HYDROcodone/acetaminophen 5mg/325mg tablet PO PRN ×3 (00:40→19:47)
[2019-11-26] MEDS: diltiazem-NS 100mg/100ml 100 ML IV SCH ×2 (03:03→16:35)
--- NOTE | 2019-11-26 04:40 | NUR ---
Pt was bladder scanned with appox 144mL.
[2019-11-26 06:02] LABS: ALANINE AMINOTRANSFERASE 46 U/L (12-78); ALBUMIN 3.8 G/DL (3.4-5.0); ALBUMIN/GLOBULIN RATIO 1.4 (1.1-1.5); ALKALINE PHOSPHATASE 119 IU/L (46-116); ANION GAP 11 (8-16); ASPARTATE AMINO TRANSFERASE 27 U/L (10-37); BILIRUBIN,TOTAL 0.9 MG/DL (0.1-1.0); BLOOD UREA NITROGEN 39 MG/DL (7-18); BUN/CREATININE RATIO 18.7 (5.4-32.0); CALCIUM 8.6 MG/DL (8.5-10.1); CHLORIDE 105 MMOL/L (99-107); CREATININE 2.09 MG/DL (0.60-1.10); GLUCOSE 103 MG/DL (70-104); POTASSIUM 3.7 MMOL/L (3.5-5.1); SODIUM 140 MMOL/L (135-145); TOTAL CARBON DIOXIDE 24.3 MMOL/L (24-32); TOTAL PROTEIN 6.5 G/DL (6.4-8.2); eGFR 32 ML/MIN
[2019-11-26 06:11] LABS: BASOPHILS # (AUTO) 0.1 X10'3 (0-0.2); BASOPHILS % (AUTO) 0.8 % (0-1); EOSINOPHILS # (AUTO) 0.2 X10'3 (0-0.9); EOSINOPHILS % (AUTO) 1.4 % (0-6); HEMATOCRIT 46.1 % (42.0-52.0); HEMOGLOBIN 14.6 g/dl (14.0-17.9); LYMPHOCYTES # (AUTO) 5.9 X10'3 (1.1-4.8); LYMPHOCYTES % (AUTO) 36.9 % (21-51); MEAN CORPUSCULAR HEMOGLOBIN 27.2 PG (27.0-31.0); MEAN CORPUSCULAR HGB CONC 31.7 g/dL (33.0-36.5); MEAN CORPUSCULAR VOLUME 86.1 FL (78-98); MEAN PLATELET VOLUME 8.9 FL (7.4-10.4); MONOCYTES # (AUTO) 1.3 X10'3 (0-0.9); MONOCYTES % (AUTO) 8.2 % (2-12); NEUTROPHILS # (AUTO) 8.4 X10'3 (1.8-7.7); NEUTROPHILS % (AUTO) 52.7 % (42-75); PLATELET COUNT 193 X10'3 (140-440); RED BLOOD COUNT 5.35 X10'6 (4.70-6.10); RED CELL DISTRIBUTION WIDTH 15.4 % (11.5-14.5)
--- NOTE | 2019-11-26 06:15 | NUR ---
Patient in room PCU 3021. I have received report from ROSS Fernandez and had the opportunity to ask questions and assume patient care. Pt resting comfortably, awake for change of shift, in no distress.
[2019-11-26] MEDS: K and/or MAG REPLACEMENT MC SCH ×2 (08:00→19:37)
[2019-11-26] MEDS: apixaban 5mg tablet PO SCH ×2 (10:37→19:41)
[2019-11-26] MEDS: furosemide 10 MG/1 ML 10ml inj IV SCH ×2 (10:37→19:41)
--- NOTE | 2019-11-26 18:05 | NUR ---
Problems reprioritized. Patient report given, questions answered & plan of care reviewed with ROSS Sotelo. Pt resting comfortably at change of shift. All patient needs met at this time.
--- NOTE | 2019-11-26 18:13 | NUR ---
Patient in room PCU 3021. I have received report from ROSS Stevens and had the opportunity to ask questions and assume patient care.
[2019-11-27] VITALS (14 sets, daily range): BP systolic 104–145; BP diastolic 69–100
[2019-11-27] MEDS: diltiazem-NS 100mg/100ml 100 ML IV SCH ×2 (03:53→17:34)
[2019-11-27 05:20] LABS: BASOPHILS # (AUTO) 0.1 X10'3 (0-0.2); BASOPHILS % (AUTO) 0.9 % (0-1); EOSINOPHILS # (AUTO) 0.2 X10'3 (0-0.9); EOSINOPHILS % (AUTO) 1.9 % (0-6); HEMATOCRIT 46.5 % (42.0-52.0); HEMOGLOBIN 14.6 g/dl (14.0-17.9); LYMPHOCYTES # (AUTO) 5.4 X10'3 (1.1-4.8); LYMPHOCYTES % (AUTO) 40.5 % (21-51); MEAN CORPUSCULAR HEMOGLOBIN 26.6 PG (27.0-31.0); MEAN CORPUSCULAR HGB CONC 31.3 g/dL (33.0-36.5); MEAN PLATELET VOLUME 9.1 FL (7.4-10.4); MONOCYTES % (AUTO) 7.6 % (2-12); NEUTROPHILS # (AUTO) 6.5 X10'3 (1.8-7.7); NEUTROPHILS % (AUTO) 49.1 % (42-75); PLATELET COUNT 188 X10'3 (140-440); RED BLOOD COUNT 5.47 X10'6 (4.70-6.10); RED CELL DISTRIBUTION WIDTH 15.8 % (11.5-14.5); WHITE BLOOD COUNT 13.3 X10'3 (4.5-11.0)
[2019-11-27 05:36] LABS: ALANINE AMINOTRANSFERASE 45 U/L (12-78); ALBUMIN 3.8 G/DL (3.4-5.0); ALBUMIN/GLOBULIN RATIO 1.3 (1.1-1.5); ALKALINE PHOSPHATASE 120 IU/L (46-116); ANION GAP 11 (8-16); ASPARTATE AMINO TRANSFERASE 29 U/L (10-37); BILIRUBIN,TOTAL 0.8 MG/DL (0.1-1.0); BLOOD UREA NITROGEN 42 MG/DL (7-18); BUN/CREATININE RATIO 19.7 (5.4-32.0); CALCIUM 8.9 MG/DL (8.5-10.1); CHLORIDE 102 MMOL/L (99-107); CREATININE 2.13 MG/DL (0.60-1.10); GLUCOSE 91 MG/DL (70-104); POTASSIUM 3.4 MMOL/L (3.5-5.1); SODIUM 142 MMOL/L (135-145); TOTAL CARBON DIOXIDE 29.5 MMOL/L (24-32); TOTAL PROTEIN 6.7 G/DL (6.4-8.2); eGFR 31 ML/MIN
--- NOTE | 2019-11-27 06:25 | NUR ---
Patient in room PCU 3021. I have received report from Ashleigh HAWKINS and had the opportunity to ask questions and assume patient care.
--- NOTE | 2019-11-27 06:30 | NUR ---
Problems reprioritized. Patient report given, questions answered & plan of care reviewed with ROSS Noble.
[2019-11-27] MEDS: furosemide 10 MG/1 ML 10ml inj IV SCH ×2 (07:58→20:06)
[2019-11-27] MEDS: apixaban 5mg tablet PO SCH ×2 (07:58→20:07)
[2019-11-27] MEDS: potassium Cl 20 mEq SR tablet PO PRN ×3 (07:59→20:08)
[2019-11-27] MEDS: K and/or MAG REPLACEMENT MC SCH ×2 (08:20→20:00)
--- NOTE | 2019-11-27 12:45 | NUR ---
Per Dr. Wyman. Increase Pt's Cardizem drip to 7.5mg/hr and continue to monitor.
[2019-11-27] MEDS ORDERED: diltiazem-NS 100mg/100ml 100 ML IV SCH (12:50)
--- NOTE | 2019-11-27 17:02 | NUR ---
Per Dr. Wyman; Pt's Cardizem drip increased to 10mg/hr. Will continue to monitor
--- NOTE | 2019-11-27 18:20 | NUR ---
Problems reprioritized. Patient report given, questions answered & plan of care reviewed with Ashleigh HAWKINS.
[2019-11-27] MEDS: HYDROcodone/acetaminophen 5mg/325mg tablet PO PRN (20:13)
[2019-11-27] MEDS ORDERED: albuterol 2.5 MG/3 ML nebule NEB PRN (22:20)
[2019-11-27] MEDS ORDERED: Melatonin 3mg tablet PO ONE (22:40)
[2019-11-28] VITALS (8 sets, daily range): BP systolic 105–124; BP diastolic 62–106
[2019-11-28] MEDS: diltiazem-NS 100mg/100ml 100 ML IV SCH ×2 (02:57→15:34)
[2019-11-28 06:09] LABS: BASOPHILS # (AUTO) 0.1 X10'3 (0-0.2); EOSINOPHILS # (AUTO) 0.3 X10'3 (0-0.9); HEMOGLOBIN 14.5 g/dl (14.0-17.9)
[2019-11-28 06:15] LABS: BASOPHILS % (AUTO) 0.6 % (0-1); EOSINOPHILS % (AUTO) 2.2 % (0-6); HEMATOCRIT 44.6 % (42.0-52.0); LYMPHOCYTES # (AUTO) 5.4 X10'3 (1.1-4.8); LYMPHOCYTES % (AUTO) 41.9 % (21-51); MEAN CORPUSCULAR HEMOGLOBIN 27.5 PG (27.0-31.0); MEAN CORPUSCULAR HGB CONC 32.6 g/dL (33.0-36.5); MEAN CORPUSCULAR VOLUME 84.4 FL (78-98); MEAN PLATELET VOLUME 8.8 FL (7.4-10.4); MONOCYTES % (AUTO) 7.6 % (2-12); NEUTROPHILS # (AUTO) 6.2 X10'3 (1.8-7.7); NEUTROPHILS % (AUTO) 47.7 % (42-75); PLATELET COUNT 171 X10'3 (140-440); RED BLOOD COUNT 5.28 X10'6 (4.70-6.10); RED CELL DISTRIBUTION WIDTH 15.4 % (11.5-14.5)
--- NOTE | 2019-11-28 06:15 | NUR ---
Patient in room PCU 3021. I have received report from ROSS Sotelo and had the opportunity to ask questions and assume patient care. Patient asleep in bed and in no acute distress.
--- NOTE | 2019-11-28 06:16 | NUR ---
Problems reprioritized. Patient report given, questions answered & plan of care reviewed with ROSS Arrington.
[2019-11-28 06:20] LABS: ALANINE AMINOTRANSFERASE 40 U/L (12-78); ALBUMIN 3.4 G/DL (3.4-5.0); ALBUMIN/GLOBULIN RATIO 1.3 (1.1-1.5); ALKALINE PHOSPHATASE 115 IU/L (46-116); ANION GAP 7 (8-16); ASPARTATE AMINO TRANSFERASE 23 U/L (10-37); BILIRUBIN,TOTAL 0.7 MG/DL (0.1-1.0); BLOOD UREA NITROGEN 43 MG/DL (7-18); BUN/CREATININE RATIO 23.6 (5.4-32.0); CALCIUM 8.3 MG/DL (8.5-10.1); CHLORIDE 105 MMOL/L (99-107); CREATININE 1.82 MG/DL (0.60-1.10); GLUCOSE 90 MG/DL (70-104); POTASSIUM 3.5 MMOL/L (3.5-5.1); SODIUM 142 MMOL/L (135-145); eGFR 38 ML/MIN
[2019-11-28] MEDS: apixaban 5mg tablet PO SCH (07:36)
[2019-11-28] MEDS: furosemide 10 MG/1 ML 10ml inj IV SCH (07:37)
[2019-11-28] MEDS: K and/or MAG REPLACEMENT MC SCH (07:38)
[2019-11-28] MEDS: HYDROcodone/acetaminophen 5mg/325mg tablet PO PRN (11:04)
[2019-11-28 11:43] LABS: TOTAL CELLS COUNTED 100
[2019-11-28 11:44] LABS: PLATELET ESTIMATE NORMAL
[2019-11-28 11:45] LABS: ACANTHOCYTES FEW; ELLIPTOCYTES FEW; POLYCHROMASIA FEW
[2019-11-28 11:47] LABS: SMUDGE CELLS FEW
--- NOTE | 2019-11-28 12:38 | NUR ---
Paged Dr. Wyman regarding patient wanting to leave AMA. PAGER ID: [phone] MESSAGE: [phone]. Ludin Oakes. Patient wanting to leave AMA. Thank you. Nury HAWKINS x [phone] Addendum: 11/28/19 at 1703 by Nury Handy RN Patient agreed to stay, but now wants to leave due to his 's father passing away.
--- NOTE | 2019-11-28 17:02 | NUR ---
Paged Dr. Wyman regarding patient leaving AMA now. PAGER ID: [phone] MESSAGE: [phone]. Lobito Oakes. Patient's 's father today. Patient leaving AMA. Thank you. Nury HAWKINS x [phone]
--- NOTE | 2019-11-28 17:25 | NUR ---
Patient left AMA. Patient was educated on risks of leaving AMA. MD was notified. PIV discontinued. threat monitoring analyst discontinued. Patient walked down to lobby and left via private vehicle.
[2019-11-28] MEDS ORDERED: Melatonin 3mg tablet PO SCH (21:00)
== END 2019-11-28 17:30 | disposition left against medical advice (07) | DRG 292 ==
LOC: ER 17:18 → ED HOLD 21:07 → PCU 3S 22:20
PROVIDERS: ADMIT Internal Medicine; ATTEND Internal Medicine
DX: I13.0 Hypertensive heart and chronic kidney disease with heart failure and stage 1 through stage 4 chronic kidney disease, or unspecified chronic kidney disease (principal); E87.0 Hyperosmolality and hypernatremia; N17.9 Acute kidney failure, unspecified; I50.30 Unspecified diastolic (congestive) heart failure; G47.33 Obstructive sleep apnea (adult) (pediatric); I27.20 Pulmonary hypertension, unspecified; I48.91 Unspecified atrial fibrillation; E66.01 Morbid (severe) obesity due to excess calories; J44.9 Chronic obstructive pulmonary disease, unspecified; N18.9 Chronic kidney disease, unspecified; Z96.652 Presence of left artificial knee joint; Z85.6 Personal history of leukemia; G89.29 Other chronic pain; M54.9 Dorsalgia, unspecified; G43.909 Migraine, unspecified, not intractable, without status migrainosus; F41.9 Anxiety disorder, unspecified; D64.9 Anemia, unspecified; Z68.35 Body mass index [BMI] 35.0-35.9, adult
CPT/HCPCS: 36415; 71045; 80053; 83880; 84484; 85007; 85025; 87081; 93005; 94760; 96365; 96375; 96376; 99291; G0378; J1940; J3475; J3490; J7030

== ENCOUNTER 2020-06-04 19:47 | Emergency (ER) | payer BC, MEDICAID ==
[~2020-06-04] VITALS: Ht 193 cm; Wt 118.2 kg
[~2020-06-04 19:47] MED LIST changes: +ACET-1 PO; -DILT300C35 PO; +DILT360T13 PO; -IBUP-1984 PO; +IPRA3AMP9 NEB; +NYST1000 PO; +PRED20TA PO
[2020-06-04] MEDS ORDERED: furosemide 40mg/4ml inj IV ONE (20:00)
--- NOTE | 2020-06-04 20:28 | NUR ---
MD Blue at bedside.
[2020-06-04 20:30] LABS: BASOPHILS # (AUTO) 0.1 X10'3 (0-0.2); BASOPHILS % (AUTO) 1.1 % (0-1); EOSINOPHILS # (AUTO) 0.4 X10'3 (0-0.9); EOSINOPHILS % (AUTO) 3.4 % (0-6); HEMATOCRIT 38.3 % (42.0-52.0); HEMOGLOBIN 11.9 g/dl (14.0-17.9); LYMPHOCYTES # (AUTO) 1.1 X10'3 (1.1-4.8); LYMPHOCYTES % (AUTO) 10.6 % (21-51); MEAN CORPUSCULAR HEMOGLOBIN 23.1 PG (27.0-31.0); MEAN CORPUSCULAR HGB CONC 31.1 g/dL (33.0-36.5); MEAN CORPUSCULAR VOLUME 74.2 FL (78-98); MEAN PLATELET VOLUME 8.6 FL (7.4-10.4); NEUTROPHILS # (AUTO) 7.8 X10'3 (1.8-7.7); NEUTROPHILS % (AUTO) 74.9 % (42-75); PLATELET COUNT 186 X10'3 (140-440); RED BLOOD COUNT 5.17 X10'6 (4.70-6.10); WHITE BLOOD COUNT 10.4 X10'3 (4.5-11.0)
[2020-06-04] MEDS ORDERED: albuterol 2.5 MG/3 ML nebule NEB ONE (20:35)
[2020-06-04] MEDS ORDERED: ipratropium/albuterol 3ml nebule NEB ONE (20:35)
[2020-06-04] MEDS ORDERED: methylPREDNISolone sod succ 125mg/2ml vial IV ONE (20:35)
[2020-06-04 20:40] LABS: ALANINE AMINOTRANSFERASE 38 U/L (12-78); ALBUMIN 3.4 G/DL (3.4-5.0); ALBUMIN/GLOBULIN RATIO 0.9 (1.1-1.5); ALKALINE PHOSPHATASE 185 IU/L (46-116); ANION GAP 12 (8-16); ASPARTATE AMINO TRANSFERASE 27 U/L (10-37); BILIRUBIN,TOTAL 0.5 MG/DL (0.1-1.0); BLOOD UREA NITROGEN 63 MG/DL (7-18); CHLORIDE 103 MMOL/L (99-107); CREATININE 2.87 MG/DL (0.60-1.10); GLUCOSE 103 MG/DL (70-104); POTASSIUM 3.5 MMOL/L (3.5-5.1); SODIUM 141 MMOL/L (135-145); eGFR 22 ML/MIN
[2020-06-04 20:40] LABS: CLARITY,URINE CLEAR (Clear); COLOR,URINE YELLOW (Yellow); GLUCOSE, URINE NEGATIVE (Neg); KETONES,URINE NEGATIVE (Neg); LEUKOCYTE ESTERASE ,URINE NEGATIVE (Neg); NITRITES, URINE NEGATIVE (Neg); OCCULT BLOOD,URINE NEGATIVE (Neg); PROTEIN,URINE TRACE mg/dl (Neg); UROBILINOGEN,URINE 0.2 E.U/dL (0.2-1.0)
[2020-06-04 20:41] LABS: UA COLLECTION TYPE URINAL
[2020-06-04 20:52] LABS: BACTERIA,URINE NONE SEEN /HPF (Neg); RBC,URINE NONE SEEN /HPF (0-2); SQUAMOUS EPITHELIAL CELL,UR FEW /LPF (FEW); WBC,URINE NONE SEEN /HPF (0-4)
[2020-06-04 21:24] LABS: ANISOCYTOSIS 2+; ELLIPTOCYTES FEW; LARGE PLATELETS FEW; MICROCYTOSIS 1+; PLATELET ESTIMATE NORMAL; POLYCHROMASIA FEW
[2020-06-04] MEDS ORDERED: ALBU8HFA PO (21:39)
[2020-06-04] MEDS ORDERED: PRED20TA PO (21:39)
[2020-06-04] MEDS ORDERED: AZIT-63 PO (21:39)
[2020-06-04] MEDS ORDERED: azithromycin 250mg tablet PO ONE (21:40)
[2020-06-04 22:06] VITALS: BP 143/102
== END 2020-06-04 22:08 | disposition home or self-care (01) ==
LOC: ER 19:48
DX: J44.1 Chronic obstructive pulmonary disease with (acute) exacerbation (principal); I13.0 Hypertensive heart and chronic kidney disease with heart failure and stage 1 through stage 4 chronic kidney disease, or unspecified chronic kidney disease; I50.9 Heart failure, unspecified; N18.9 Chronic kidney disease, unspecified; G43.909 Migraine, unspecified, not intractable, without status migrainosus; I48.91 Unspecified atrial fibrillation; G89.29 Other chronic pain; F41.9 Anxiety disorder, unspecified; Z86.2 Personal history of diseases of the blood and blood-forming organs and certain disorders involving the immune mechanism; Z98.890 Other specified postprocedural states; Z79.01 Long term (current) use of anticoagulants; Z79.899 Other long term (current) drug therapy
CPT/HCPCS: 36415; 71045; 80053; 80162; 81001; 83880; 85008; 85025; 93005; 94640; 96374; 99285; J2930; 94760

== ENCOUNTER 2020-07-03 10:43 | Emergency (ER) | payer BC, MEDICAID ==
[~2020-07-03] VITALS: Ht 193 cm; Wt 116.5 kg
[~2020-07-03 10:43] MED LIST changes: +ALBU8HFA PO
[2020-07-03 11:27] LABS: BASOPHILS # (AUTO) 0.1 X10'3 (0-0.2); BASOPHILS % (AUTO) 0.8 % (0-1); EOSINOPHILS # (AUTO) 0.2 X10'3 (0-0.9); EOSINOPHILS % (AUTO) 1.9 % (0-6); HEMATOCRIT 39.4 % (42.0-52.0); HEMOGLOBIN 12.2 g/dl (14.0-17.9); LYMPHOCYTES # (AUTO) 1.4 X10'3 (1.1-4.8); LYMPHOCYTES % (AUTO) 14.2 % (21-51); MEAN CORPUSCULAR HEMOGLOBIN 22.3 PG (27.0-31.0); MEAN CORPUSCULAR HGB CONC 30.9 g/dL (33.0-36.5); MEAN CORPUSCULAR VOLUME 72.2 FL (78-98); MEAN PLATELET VOLUME 9.1 FL (7.4-10.4); MONOCYTES # (AUTO) 1.2 X10'3 (0-0.9); MONOCYTES % (AUTO) 12.4 % (2-12); NEUTROPHILS % (AUTO) 70.7 % (42-75); PLATELET COUNT 167 X10'3 (140-440); RED BLOOD COUNT 5.46 X10'6 (4.70-6.10); RED CELL DISTRIBUTION WIDTH 19.5 % (11.5-14.5)
[2020-07-03] MEDS ORDERED: predniSONE 20 mg tablet PO ONE (11:30)
[2020-07-03] MEDS ORDERED: ipratropium/albuterol 3ml nebule NEB ONE (11:30)
[2020-07-03 11:50] LABS: ALANINE AMINOTRANSFERASE 37 U/L (12-78); ALBUMIN 3.3 G/DL (3.4-5.0); ALKALINE PHOSPHATASE 188 IU/L (46-116); ANION GAP 12 (8-16); ASPARTATE AMINO TRANSFERASE 28 U/L (10-37); BILIRUBIN,TOTAL 0.7 MG/DL (0.1-1.0); BLOOD UREA NITROGEN 53 MG/DL (7-18); BUN/CREATININE RATIO 23.7 (5.4-32.0); CALCIUM 8.4 MG/DL (8.5-10.1); CHLORIDE 106 MMOL/L (99-107); CREATININE 2.24 MG/DL (0.60-1.10); GLUCOSE 100 MG/DL (70-104); POTASSIUM 3.7 MMOL/L (3.5-5.1); SODIUM 143 MMOL/L (135-145); TOTAL CARBON DIOXIDE 25.4 MMOL/L (24-32); TOTAL PROTEIN 6.6 G/DL (6.4-8.2); eGFR 29 ML/MIN
[2020-07-03 11:59] LABS: ANISOCYTOSIS 2+; BURR CELLS 1+; ELLIPTOCYTES 1+; MICROCYTOSIS 1+; PLATELET ESTIMATE NORMAL; SCHISTOCYTES FEW
[2020-07-03 12:00] LABS: CLARITY,URINE CLEAR (Clear); COLOR,URINE YELLOW (Yellow); GLUCOSE, URINE NEGATIVE (Neg); KETONES,URINE NEGATIVE (Neg); LEUKOCYTE ESTERASE ,URINE NEGATIVE (Neg); NITRITES, URINE NEGATIVE (Neg); OCCULT BLOOD,URINE NEGATIVE (Neg); PROTEIN,URINE 30 mg/dl (Neg)
[2020-07-03 12:01] LABS: UA COLLECTION TYPE CLN CATCH MIDSTREAM
[2020-07-03 12:01] LABS: HYPOCHROMASIA 1+
[2020-07-03 12:06] LABS: BACTERIA,URINE FEW /HPF (Neg); RBC,URINE 0-2 /HPF (0-2); SQUAMOUS EPITHELIAL CELL,UR FEW /LPF (FEW); WBC,URINE 0-4 /HPF (0-4)
[2020-07-03] MEDS ORDERED: furosemide 10 MG/1 ML 10ml inj IV ONE (12:35)
[2020-07-03] MEDS ORDERED: PRED20TA PO (13:37)
[2020-07-03] MEDS ORDERED: AZIT-72 PO (13:37)
[2020-07-03 14:05] VITALS: BP 142/84
== END 2020-07-03 14:09 | disposition home or self-care (01) ==
LOC: ER 10:43
DX: J44.1 Chronic obstructive pulmonary disease with (acute) exacerbation (principal); I11.0 Hypertensive heart disease with heart failure; I50.9 Heart failure, unspecified; G43.909 Migraine, unspecified, not intractable, without status migrainosus; I48.91 Unspecified atrial fibrillation; G89.29 Other chronic pain; F41.9 Anxiety disorder, unspecified; Z86.2 Personal history of diseases of the blood and blood-forming organs and certain disorders involving the immune mechanism; Z98.890 Other specified postprocedural states; Z79.01 Long term (current) use of anticoagulants; Z79.899 Other long term (current) drug therapy
CPT/HCPCS: 36415; 71045; 80053; 81001; 83880; 84484; 85008; 85025; 93005; 94640; 96374; 99285; J1940; J7512; 94760

== ENCOUNTER 2021-01-12 11:38 | Inpatient (IN) | payer BC, MEDICAID ==
[~2021-01-12] VITALS: Ht 190.5 cm; Wt 111.0 kg
[~2021-01-12 11:38] MED LIST changes: -ALBU8HFA PO
[2021-01-12] MEDS ORDERED: normal saline 1000ml 1,000 ML IV ONE (12:00)
[2021-01-12 12:24] LABS: BASOPHILS # (AUTO) 0.1 X10'3 (0-0.2); BASOPHILS % (AUTO) 0.6 % (0-1); EOSINOPHILS # (AUTO) 0.3 X10'3 (0-0.9); EOSINOPHILS % (AUTO) 2.9 % (0-6); HEMATOCRIT 51.7 % (42.0-52.0); HEMOGLOBIN 17.3 g/dl (14.0-17.9); LYMPHOCYTES # (AUTO) 4.2 X10'3 (1.1-4.8); LYMPHOCYTES % (AUTO) 39.5 % (21-51); MEAN CORPUSCULAR HEMOGLOBIN 28.9 PG (27.0-31.0); MEAN CORPUSCULAR HGB CONC 33.5 g/dL (33.0-36.5); MEAN CORPUSCULAR VOLUME 86.4 FL (78-98); MEAN PLATELET VOLUME 8.6 FL (7.4-10.4); MONOCYTES # (AUTO) 0.7 X10'3 (0-0.9); MONOCYTES % (AUTO) 6.8 % (2-12); NEUTROPHILS # (AUTO) 5.4 X10'3 (1.8-7.7); NEUTROPHILS % (AUTO) 50.2 % (42-75); PLATELET COUNT 152 X10'3 (140-440); RED BLOOD COUNT 5.98 X10'6 (4.70-6.10); RED CELL DISTRIBUTION WIDTH 15.9 % (11.5-14.5); WHITE BLOOD COUNT 10.7 X10'3 (4.5-11.0)
[2021-01-12 12:36] LABS: D-DIMER 0.37 MG/L FEU (0-0.50)
[2021-01-12 12:38] LABS: ALANINE AMINOTRANSFERASE 40 U/L (12-78); ALBUMIN 2.8 G/DL (3.4-5.0); ALBUMIN/GLOBULIN RATIO 1.1 (1.1-1.5); ALKALINE PHOSPHATASE 126 IU/L (46-116); ANION GAP 8 (8-16); ASPARTATE AMINO TRANSFERASE 28 U/L (10-37); BILIRUBIN,TOTAL 0.6 MG/DL (0.1-1.0); BLOOD UREA NITROGEN 53 MG/DL (7-18); BUN/CREATININE RATIO 20.2 (5.4-32.0); CALCIUM 7.9 MG/DL (8.5-10.1); CHLORIDE 106 MMOL/L (99-107); CREATININE 2.63 MG/DL (0.60-1.10); GLUCOSE 111 MG/DL (70-104); POTASSIUM 4.2 MMOL/L (3.5-5.1); SODIUM 140 MMOL/L (135-145); TOTAL CARBON DIOXIDE 25.6 MMOL/L (24-32); TOTAL PROTEIN 5.4 G/DL (6.4-8.2); eGFR 24 ML/MIN
[2021-01-12 12:48] LABS: MAGNESIUM 1.7 MG/DL (1.5-2.4)
[2021-01-12] MEDS ORDERED: SACU1TAB PO (14:44)
[2021-01-12] MEDS ORDERED: METO-395 PO (14:44)
[2021-01-12] MEDS ORDERED: NAPR-1144 PO (14:44)
[2021-01-12] MEDS ORDERED: DIGO125T PO (14:44)
[2021-01-12] MEDS ORDERED: FLO0.4C PO (14:48)
[2021-01-12] MEDS ORDERED: FERR325T29 PO (14:48)
[2021-01-12] MEDS ORDERED: magnesium hydroxide 30ml (MOM) UD suspension PO PRN (15:35)
[2021-01-12] MEDS ORDERED: mag hydrox/Alum hydrox/simeth 30ml oral suspension PO PRN (15:35)
[2021-01-12] MEDS ORDERED: ondansetron/PF 4mg/2ml inj IV PRN (15:35)
[2021-01-12] MEDS ORDERED: acetaminophen 325mg tablet PO PRN (15:35)
[2021-01-12] MEDS: normal saline 1000ml 1,000 ML IV SCH (16:09)
[2021-01-12] MEDS: metoprolol succinate 25mg (24-HOUR) SR. Tablet PO SCH (20:00)
[2021-01-12 20:04] LABS: CLARITY,URINE CLEAR (Clear); COLOR,URINE YELLOW (Yellow); GLUCOSE, URINE NEGATIVE (Neg); KETONES,URINE NEGATIVE (Neg); LEUKOCYTE ESTERASE ,URINE NEGATIVE (Neg); NITRITES, URINE NEGATIVE (Neg); OCCULT BLOOD,URINE NEGATIVE (Neg); PROTEIN,URINE TRACE mg/dl (Neg); UA COLLECTION TYPE VOIDED; UROBILINOGEN,URINE 0.2 E.U/dL (0.2-1.0)
[2021-01-12 20:11] LABS: HYALINE CASTS 0-3 /LPF (NEGATIVE); MUCUS STRANDS FEW /LPF (Neg); SQUAMOUS EPITHELIAL CELL,UR FEW /LPF (FEW)
[2021-01-12 20:12] LABS: BACTERIA,URINE NONE SEEN /HPF (Neg); RBC,URINE 0-2 /HPF (0-2); WBC,URINE 0-4 /HPF (0-4)
[2021-01-12] MEDS: docusate sod 100mg capsule PO SCH (20:49)
[2021-01-12] MEDS: apixaban 5mg tablet PO SCH (20:49)
[2021-01-12 23:00] VITALS: BP 134/80
--- NOTE | 2021-01-12 23:00 | NUR ---
pt states mckenzie rodriguez in ER Addendum: 01/13/21 at 0510 by Heidi Johnson RN Amended: Links added.
[2021-01-13] MEDS: HYDROcodone/acetaminophen 5mg/325mg tablet PO PRN ×3 (00:09→08:17)
[2021-01-13] MEDS: normal saline 1000ml 1,000 ML IV SCH ×2 (01:35→08:15)
[2021-01-13 02:00] VITALS: BP 121/64
[2021-01-13 06:00] VITALS: BP 138/76
[2021-01-13 06:02] LABS: ALBUMIN 2.8 G/DL (3.4-5.0); ANION GAP 11 (8-16); BLOOD UREA NITROGEN 45 MG/DL (7-18); BUN/CREATININE RATIO 23.4 (5.4-32.0); CALCIUM 8.4 MG/DL (8.5-10.1); CHLORIDE 105 MMOL/L (99-107); CREATININE 1.92 MG/DL (0.60-1.10); GLUCOSE 83 MG/DL (70-104); POTASSIUM 4.2 MMOL/L (3.5-5.1); SODIUM 139 MMOL/L (135-145); TOTAL CARBON DIOXIDE 22.7 MMOL/L (24-32); eGFR 35 ML/MIN
[2021-01-13 06:15] LABS: BASOPHILS % (AUTO) 0.4 % (0-1); EOSINOPHILS # (AUTO) 0.4 X10'3 (0-0.9); EOSINOPHILS % (AUTO) 3.8 % (0-6); HEMATOCRIT 50.4 % (42.0-52.0); HEMOGLOBIN 17.1 g/dl (14.0-17.9); LYMPHOCYTES # (AUTO) 3.8 X10'3 (1.1-4.8); LYMPHOCYTES % (AUTO) 36.8 % (21-51); MEAN CORPUSCULAR HEMOGLOBIN 28.8 PG (27.0-31.0); MEAN CORPUSCULAR HGB CONC 33.8 g/dL (33.0-36.5); MEAN CORPUSCULAR VOLUME 85.1 FL (78-98); MEAN PLATELET VOLUME 9.1 FL (7.4-10.4); MONOCYTES # (AUTO) 0.7 X10'3 (0-0.9); NEUTROPHILS # (AUTO) 5.4 X10'3 (1.8-7.7); PLATELET COUNT 147 X10'3 (140-440); RED BLOOD COUNT 5.92 X10'6 (4.70-6.10); RED CELL DISTRIBUTION WIDTH 15.9 % (11.5-14.5); WHITE BLOOD COUNT 10.4 X10'3 (4.5-11.0)
[2021-01-13] MEDS: metoprolol succinate 25mg (24-HOUR) SR. Tablet PO SCH (07:18)
[2021-01-13] MEDS: apixaban 5mg tablet PO SCH (07:18)
[2021-01-13] MEDS: docusate sod 100mg capsule PO SCH (07:19)
--- NOTE | 2021-01-13 07:53 | NUR ---
PAGER ID: [phone] MESSAGE: Maura HAWKINS [phone] re: Pt HR in 150's sitting in bed. Current HR 110's afib BBB with occ PVCs. Thank you
[2021-01-13] MEDS ORDERED: digoxin 125mcg (0.125mg) tablet PO SCH (08:00)
[2021-01-13] MEDS ORDERED: tamsulosin 0.4mg capsule PO SCH (08:00)
[2021-01-13] MEDS ORDERED: ferrous sulfate 325mg tablet PO SCH (08:00)
[2021-01-13] MEDS ORDERED: pneumococcal 23-VAL P-sac vacc 25 mcg/0.5ml vial IMVAC ONE (10:00)
[2021-01-13 11:00] VITALS: BP 92/58
[2021-01-13] MEDS ORDERED: HYDR-3965 PO (13:17)
--- NOTE | 2021-01-13 13:20 | NUR ---
Pt discharged to home with . iv removed, tip intact, no complications. tele pack returned to [facility]. belongings sent with patient. pt discharged in stable condition
== END 2021-01-13 13:50 | disposition home or self-care (01) | DRG 640 ==
LOC: ER 11:38 → ED HOLD 15:38 → PCU 3S 22:20
PROVIDERS: ADMIT Family Medicine; ATTEND Family Medicine
DX: E86.0 Dehydration (principal); N17.0 Acute kidney failure with tubular necrosis; I13.0 Hypertensive heart and chronic kidney disease with heart failure and stage 1 through stage 4 chronic kidney disease, or unspecified chronic kidney disease; I48.20 Chronic atrial fibrillation, unspecified; C92.10 Chronic myeloid leukemia, BCR/ABL-positive, not having achieved remission; F41.9 Anxiety disorder, unspecified; I95.9 Hypotension, unspecified; E66.01 Morbid (severe) obesity due to excess calories; N18.9 Chronic kidney disease, unspecified; G43.909 Migraine, unspecified, not intractable, without status migrainosus; G89.29 Other chronic pain; J44.9 Chronic obstructive pulmonary disease, unspecified; I50.9 Heart failure, unspecified; Z79.899 Other long term (current) drug therapy; Z87.440 Personal history of urinary (tract) infections; Z68.30 Body mass index [BMI] 30.0-30.9, adult
CPT/HCPCS: 36415; 71045; 80048; 80053; 80162; 81001; 83605; 83735; 83880; 84145; 84484; 85025; 85379; 85610; 87040; 87081; 90732; 93005; 93306; 99285; G0378; J7030

== ENCOUNTER 2021-02-04 11:59 | Inpatient (IN) | payer BC, MEDICAID ==
[~2021-02-04] VITALS: Ht 190.5 cm; Wt 109.0 kg
[~2021-02-04 11:59] MED LIST changes: -ACET-1 PO; +DIGO125T PO; -DILT360T13 PO; +FERR325T29 PO; +FLO0.4C PO; -FURO40TA4 PO; +HYDR-3965 PO; -IPRA3AMP9 NEB; +METO-395 PO; -NYST1000 PO; -PRED20TA PO; +SACU1TAB PO
[2021-02-04] MEDS ORDERED: metoprolol tartrate 1mg/ml inj IV ONE (12:20)
--- NOTE | 2021-02-04 12:29 | NUR ---
finishing up NS bag 660Ml of NS bag from EMS er Dr. Sadler aware about patient's bp sbp < 90, will re assess after giving bolus.
[2021-02-04 12:32] LABS: BASOPHILS # (AUTO) 0.1 X10'3 (0-0.2); HEMOGLOBIN 17.4 g/dl (14.0-17.9); MEAN CORPUSCULAR HEMOGLOBIN 28.8 PG (27.0-31.0); MONOCYTES # (AUTO) 0.7 X10'3 (0-0.9)
[2021-02-04 12:34] LABS: BASOPHILS % (AUTO) 0.9 % (0-1); EOSINOPHILS # (AUTO) 0.3 X10'3 (0-0.9); EOSINOPHILS % (AUTO) 3.7 % (0-6); HEMATOCRIT 52.7 % (42.0-52.0); LYMPHOCYTES # (AUTO) 4.3 X10'3 (1.1-4.8); LYMPHOCYTES % (AUTO) 50.5 % (21-51); MEAN CORPUSCULAR HGB CONC 32.9 g/dL (33.0-36.5); MEAN CORPUSCULAR VOLUME 87.4 FL (78-98); MEAN PLATELET VOLUME 8.6 FL (7.4-10.4); MONOCYTES % (AUTO) 8.5 % (2-12); NEUTROPHILS # (AUTO) 3.1 X10'3 (1.8-7.7); NEUTROPHILS % (AUTO) 36.4 % (42-75); PLATELET COUNT 191 X10'3 (140-440); RED BLOOD COUNT 6.03 X10'6 (4.70-6.10); RED CELL DISTRIBUTION WIDTH 15.8 % (11.5-14.5); WHITE BLOOD COUNT 8.5 X10'3 (4.5-11.0)
--- NOTE | 2021-02-04 12:46 | NUR ---
Hold lopressor per Dr. Blue,director media soing a repeat ekg, dye reel operator shows still afib hr 80-low 100's.Denies cp,still hypotensive.
[2021-02-04 12:55] LABS: ALANINE AMINOTRANSFERASE 36 U/L (12-78); ALBUMIN 3.2 G/DL (3.4-5.0); ALBUMIN/GLOBULIN RATIO 1.2 (1.1-1.5); ALKALINE PHOSPHATASE 122 IU/L (46-116); ANION GAP 12 (8-16); ASPARTATE AMINO TRANSFERASE 46 U/L (10-37); BILIRUBIN,TOTAL 0.8 MG/DL (0.1-1.0); BLOOD UREA NITROGEN 53 MG/DL (7-18); BUN/CREATININE RATIO 20.9 (5.4-32.0); CALCIUM 8.6 MG/DL (8.5-10.1); CHLORIDE 103 MMOL/L (99-107); CREATININE 2.54 MG/DL (0.60-1.10); GLUCOSE 95 MG/DL (70-104); POTASSIUM 3.5 MMOL/L (3.5-5.1); SODIUM 139 MMOL/L (135-145); TOTAL CARBON DIOXIDE 24.5 MMOL/L (24-32); TOTAL PROTEIN 5.9 G/DL (6.4-8.2); eGFR 25 ML/MIN
[2021-02-04] MEDS ORDERED: normal saline 1000ML IV soln IVB ONE (13:00)
[2021-02-04 13:04] LABS: MAGNESIUM 2.1 MG/DL (1.5-2.4)
[2021-02-04] MEDS ORDERED: acetaminophen 325mg tablet PO PRN (14:25)
[2021-02-04] MEDS ORDERED: potassium Cl 20 mEq SR tablet PO PRN ×2 (14:25)
[2021-02-04] MEDS ORDERED: albuterol 2.5 MG/3 ML nebule NEB PRN (14:25)
[2021-02-04] MEDS ORDERED: ondansetron/PF 4mg/2ml inj IV PRN (14:25)
[2021-02-04] MEDS ORDERED: magnesium 4gm in 100ml NS 100 ML IV PRN (14:25)
[2021-02-04] MEDS ORDERED: magnesium 2GM in 50ml NS 50 ML IV PRN (14:25)
[2021-02-04] MEDS: normal saline 1000ml 1,000 ML IV SCH (14:25)
[2021-02-04] MEDS ORDERED: ipratropium/albuterol 3ml nebule NEB PRN (14:25)
[2021-02-04] MEDS ORDERED: potassium CL 10mEq/100ml bag 100 ML IV PRN (14:25)
[2021-02-04] MEDS ORDERED: magnesium Cl slow-release 64mg tablet PO PRN (14:25)
[2021-02-04 14:29] LABS: TOTAL CELLS COUNTED 100
[2021-02-04 14:30] LABS: PLATELET ESTIMATE NORMAL
[2021-02-04 14:38] LABS: SMUDGE CELLS 2+
--- NOTE | 2021-02-04 14:42 | NUR ---
relieving RN for break, pt is resting quietly, easily arouseable, resp even and unlabored, skin p/w/d, NS 500ml bolus infusing w/o
[2021-02-04] MEDS ORDERED: METO-384 PO (15:56)
[2021-02-04] MEDS ORDERED: apixaban 5mg tablet PO SCH (20:00)
[2021-02-04] MEDS: K and/or MAG REPLACEMENT MC SCH ×2 (20:00→22:00)
[2021-02-04] MEDS: metoprolol succinate 25mg (24-HOUR) SR. Tablet PO SCH (20:13)
[2021-02-04] MEDS: docusate sod 100mg capsule PO SCH (20:14)
[2021-02-04] MEDS: apixaban 5mg tablet PO SCH (20:14)
[2021-02-05] VITALS (7 sets, daily range): BP systolic 64–113; BP diastolic 39–70
[2021-02-05] MEDS: normal saline 1000ml 1,000 ML IV SCH ×2 (00:39→10:25)
--- NOTE | 2021-02-05 06:18 | NUR ---
Patient in room PCU 3015. I have received report from Isis omer and had the opportunity to ask questions and assume patient care.
[2021-02-05] MEDS: digoxin 125mcg (0.125mg) tablet PO SCH (07:45)
[2021-02-05] MEDS: tamsulosin 0.4mg capsule PO SCH (07:46)
[2021-02-05] MEDS: ferrous sulfate 325mg tablet PO SCH (07:46)
[2021-02-05] MEDS: docusate sod 100mg capsule PO SCH ×2 (07:47→19:52)
[2021-02-05] MEDS: apixaban 5mg tablet PO SCH ×2 (07:47→19:52)
[2021-02-05] MEDS: metoprolol succinate 25mg (24-HOUR) SR. Tablet PO SCH (07:48)
[2021-02-05 09:22] LABS: EOSINOPHILS # (AUTO) 0.4 X10'3 (0-0.9); MONOCYTES # (AUTO) 0.7 X10'3 (0-0.9); RED CELL DISTRIBUTION WIDTH 15.5 % (11.5-14.5)
[2021-02-05 09:23] LABS: BASOPHILS # (AUTO) 0.1 X10'3 (0-0.2); BASOPHILS % (AUTO) 0.7 % (0-1); EOSINOPHILS % (AUTO) 4.8 % (0-6); HEMOGLOBIN 16.7 g/dl (14.0-17.9); LYMPHOCYTES % (AUTO) 48.9 % (21-51); MEAN CORPUSCULAR HEMOGLOBIN 28.9 PG (27.0-31.0); MEAN CORPUSCULAR HGB CONC 33.3 g/dL (33.0-36.5); MEAN CORPUSCULAR VOLUME 86.6 FL (78-98); MEAN PLATELET VOLUME 8.5 FL (7.4-10.4); MONOCYTES % (AUTO) 8.8 % (2-12); NEUTROPHILS % (AUTO) 36.8 % (42-75); PLATELET COUNT 169 X10'3 (140-440); RED BLOOD COUNT 5.77 X10'6 (4.70-6.10); WHITE BLOOD COUNT 8.2 X10'3 (4.5-11.0)
[2021-02-05 09:38] LABS: ALANINE AMINOTRANSFERASE 40 U/L (12-78); ALBUMIN 2.9 G/DL (3.4-5.0); ALBUMIN/GLOBULIN RATIO 1.1 (1.1-1.5); ALKALINE PHOSPHATASE 114 IU/L (46-116); ANION GAP 10 (8-16); ASPARTATE AMINO TRANSFERASE 41 U/L (10-37); BILIRUBIN,TOTAL 0.8 MG/DL (0.1-1.0); BLOOD UREA NITROGEN 42 MG/DL (7-18); BUN/CREATININE RATIO 22.5 (5.4-32.0); CALCIUM 8.2 MG/DL (8.5-10.1); CHLORIDE 106 MMOL/L (99-107); CREATININE 1.87 MG/DL (0.60-1.10); GLUCOSE 86 MG/DL (70-104); POTASSIUM 3.8 MMOL/L (3.5-5.1); SODIUM 142 MMOL/L (135-145); TOTAL CARBON DIOXIDE 25.8 MMOL/L (24-32); TOTAL PROTEIN 5.5 G/DL (6.4-8.2); eGFR 36 ML/MIN
--- NOTE | 2021-02-05 10:31 | NUR ---
i had a few meds that would not scan this AM during med pass
[2021-02-05 11:26] LABS: ANISOCYTOSIS FEW; BURR CELLS 1+; PLATELET ESTIMATE NORMAL; SMUDGE CELLS 1+; TOTAL CELLS COUNTED 100
[2021-02-05] MEDS: HYDROcodone/acetaminophen 5mg/325mg tablet PO PRN ×3 (11:44→22:36)
--- NOTE | 2021-02-05 18:17 | NUR ---
Problems reprioritized. Patient report given, questions answered & plan of care reviewed with Melissa omer.
--- NOTE | 2021-02-05 18:31 | NUR ---
Patient in room PCU 3015. I have received report from ROSS Sheldon and had the opportunity to ask questions and assume patient care.
--- NOTE | 2021-02-05 18:32 | NUR ---
Patient in room PCU 3015. I have received report from Monalisa HAWKINS and had the opportunity to ask questions and assume patient care.
[2021-02-05] MEDS: K and/or MAG REPLACEMENT MC SCH (20:00)
[2021-02-06] MEDS: normal saline 1000ml 1,000 ML IV SCH ×2 (00:12→06:25)
--- NOTE | 2021-02-06 00:30 | NUR ---
2230 Orthostatic VS as follows: Supine HR 81, BP106/70. Sitting HR 61, BP 109/65. Standing HR 53, BP 92/60. Toprol XL 50mg PO scheduled BID w/o administration parameters. Dr. Ryan notified of VSs and scheduled medication. Medication administered as per Dr. Ryan. Monitoring closely, pt to remain on bedrest.
[2021-02-06] MEDS: metoprolol succinate 25mg (24-HOUR) SR. Tablet PO SCH ×2 (00:32→08:44)
[2021-02-06 02:00] VITALS: BP 101/70
[2021-02-06] MEDS: HYDROcodone/acetaminophen 5mg/325mg tablet PO PRN ×2 (04:52→09:01)
--- NOTE | 2021-02-06 06:22 | NUR ---
Problems reprioritized. Patient report given, questions answered & plan of care reviewed with ROSS Sabillon.
--- NOTE | 2021-02-06 07:07 | NUR ---
Student documentation: I have reviewed and agree with all interventions, assessments performed and documented by Anika Davis. Student Medication Administration: For this medication-pass time frame, all medication were reviewed, dispensed, administered and documented per hospital policy by Anika Davis. Problems reprioritized. Patient report given, questions answered & plan of care reviewed with Ramandeep HAWKINS.
[2021-02-06 08:00] VITALS: BP_SYST 156; BP_SYST 79; BP_SYST 96; BP_DIAS 105; BP_DIAS 47; BP_DIAS 50
[2021-02-06] MEDS: K and/or MAG REPLACEMENT MC SCH (08:00)
[2021-02-06] MEDS ORDERED: fludrocortisone acetate 0.1mg tablet PO SCH (08:30)
[2021-02-06] MEDS: apixaban 5mg tablet PO SCH (08:42)
[2021-02-06] MEDS: ferrous sulfate 325mg tablet PO SCH (08:43)
[2021-02-06] MEDS: digoxin 125mcg (0.125mg) tablet PO SCH (08:43)
[2021-02-06] MEDS: docusate sod 100mg capsule PO SCH (08:47)
[2021-02-06] MEDS: tamsulosin 0.4mg capsule PO SCH (08:47)
[2021-02-06 09:09] LABS: BASOPHILS # (AUTO) 0.1 X10'3 (0-0.2); EOSINOPHILS # (AUTO) 0.4 X10'3 (0-0.9); HEMOGLOBIN 16.6 g/dl (14.0-17.9); LYMPHOCYTES # (AUTO) 4.1 X10'3 (1.1-4.8); MEAN CORPUSCULAR HEMOGLOBIN 29.1 PG (27.0-31.0); MONOCYTES # (AUTO) 0.7 X10'3 (0-0.9); NEUTROPHILS # (AUTO) 2.8 X10'3 (1.8-7.7); WHITE BLOOD COUNT 8.1 X10'3 (4.5-11.0)
[2021-02-06 09:10] LABS: EOSINOPHILS % (AUTO) 4.9 % (0-6); HEMATOCRIT 49.8 % (42.0-52.0); MEAN CORPUSCULAR HGB CONC 33.3 g/dL (33.0-36.5); MEAN CORPUSCULAR VOLUME 87.4 FL (78-98); MEAN PLATELET VOLUME 8.8 FL (7.4-10.4); MONOCYTES % (AUTO) 8.3 % (2-12); NEUTROPHILS % (AUTO) 34.8 % (42-75); PLATELET COUNT 154 X10'3 (140-440); RED CELL DISTRIBUTION WIDTH 15.8 % (11.5-14.5)
[2021-02-06 09:45] LABS: ANISOCYTOSIS 1+; BURR CELLS 1+; PLATELET ESTIMATE NORMAL; SMUDGE CELLS 1+; TOTAL CELLS COUNTED 100
[2021-02-06 09:59] LABS: ALANINE AMINOTRANSFERASE 39 U/L (12-78); ALBUMIN/GLOBULIN RATIO 1.2 (1.1-1.5); ALKALINE PHOSPHATASE 107 IU/L (46-116); ANION GAP 10 (8-16); ASPARTATE AMINO TRANSFERASE 37 U/L (10-37); BILIRUBIN,TOTAL 0.9 MG/DL (0.1-1.0); BLOOD UREA NITROGEN 31 MG/DL (7-18); BUN/CREATININE RATIO 20.1 (5.4-32.0); CALCIUM 8.3 MG/DL (8.5-10.1); CHLORIDE 101 MMOL/L (99-107); CREATININE 1.54 MG/DL (0.60-1.10); GLUCOSE 79 MG/DL (70-104); MAGNESIUM 1.8 MG/DL (1.5-2.4); POTASSIUM 3.8 MMOL/L (3.5-5.1); SODIUM 136 MMOL/L (135-145); TOTAL CARBON DIOXIDE 25.1 MMOL/L (24-32); TOTAL PROTEIN 5.6 G/DL (6.4-8.2); eGFR 45 ML/MIN
--- NOTE | 2021-02-06 10:19 | NUR ---
PAGER ID: [phone] MESSAGE: Ludin Oakes 15B lab just reported positive MRSA nasal swab. ext [phone] if needed. Ramandeep HAWKINS
[2021-02-06] MEDS ORDERED: oxyCODONE/APAP 10/325mg tablet PO ONE (10:50)
[2021-02-06] MEDS ORDERED: FLO0.1T PO (11:38)
== END 2021-02-06 14:35 | disposition home or self-care (01) | DRG 683 ==
LOC: ER 11:59 → ED HOLD 14:30 → EDBEDREQ 20:32 → PCU 3S 21:32
PROVIDERS: ADMIT Family Medicine; ATTEND Family Medicine
DX: N17.0 Acute kidney failure with tubular necrosis (principal); I50.22 Chronic systolic (congestive) heart failure; I13.0 Hypertensive heart and chronic kidney disease with heart failure and stage 1 through stage 4 chronic kidney disease, or unspecified chronic kidney disease; C92.10 Chronic myeloid leukemia, BCR/ABL-positive, not having achieved remission; I95.1 Orthostatic hypotension; E86.0 Dehydration; F41.9 Anxiety disorder, unspecified; G43.909 Migraine, unspecified, not intractable, without status migrainosus; G89.29 Other chronic pain; M54.9 Dorsalgia, unspecified; N18.9 Chronic kidney disease, unspecified; R29.6 Repeated falls; R09.02 Hypoxemia; I48.91 Unspecified atrial fibrillation; J44.9 Chronic obstructive pulmonary disease, unspecified; Z79.01 Long term (current) use of anticoagulants; Z79.52 Long term (current) use of systemic steroids; Z87.440 Personal history of urinary (tract) infections; Z79.899 Other long term (current) drug therapy; Z82.49 Family history of ischemic heart disease and other diseases of the circulatory system
CPT/HCPCS: 36415; 71045; 80053; 80162; 83735; 83880; 84484; 85007; 85025; 87081; 93005; 94760; 97161; 97530; 99285; G0378; J7030

== ENCOUNTER 2021-03-13 01:01 | Inpatient (IN) | payer BC, MEDICAID ==
[~2021-03-13] VITALS: Ht 185.4 cm; Wt 250.0 kg
[~2021-03-13 01:01] MED LIST changes: +FLO0.1T PO; -HYDR-3965 PO; +METO-384 PO; -METO-395 PO; -SACU1TAB PO
[2021-03-13] MEDS ORDERED: enalaprilat dihydrate 2.5mg/2ml vial IV ONE (01:15)
[2021-03-13] MEDS ORDERED: ipratropium/albuterol 3ml nebule NEB ONE (01:15)
[2021-03-13] MEDS ORDERED: nitroGLYCERIN-Tridil 50MG/D5W 250 ML IV ONE ×3 (01:15→01:40)
[2021-03-13 01:34] LABS: ABG HCO3 21.3 mmol/L (22.0-26.0); ABG OXYGEN SATURATION 95.7 % (94-97); ABG PCO2 (T) 48.7 mmHg (35.0-48.0); ABG PO2 (T) 84.3 mmHg (75.0-100.0); ALLEN'S TEST POSITIVE; FCOHb 1.8 % (0.0-3.9); FMetHb 0.2 % (0.0-1.5); FO2Hb 93.8 % (94-97)
[2021-03-13 01:53] LABS: EOSINOPHILS # (AUTO) 0.3 X10'3 (0-0.9); PLATELET COUNT 168 X10'3 (140-440)
[2021-03-13 01:55] LABS: BASOPHILS # (AUTO) 0.1 X10'3 (0-0.2); BASOPHILS % (AUTO) 0.7 % (0-1); EOSINOPHILS % (AUTO) 2.4 % (0-6); HEMATOCRIT 41.8 % (42.0-52.0); HEMOGLOBIN 13.8 g/dl (14.0-17.9); LYMPHOCYTES # (AUTO) 2.7 X10'3 (1.1-4.8); LYMPHOCYTES % (AUTO) 24.6 % (21-51); MEAN CORPUSCULAR HEMOGLOBIN 29.4 PG (27.0-31.0); MEAN CORPUSCULAR VOLUME 89.1 FL (78-98); MEAN PLATELET VOLUME 8.2 FL (7.4-10.4); MONOCYTES # (AUTO) 0.5 X10'3 (0-0.9); MONOCYTES % (AUTO) 4.4 % (2-12); NEUTROPHILS # (AUTO) 7.5 X10'3 (1.8-7.7); NEUTROPHILS % (AUTO) 67.9 % (42-75); RED CELL DISTRIBUTION WIDTH 16.6 % (11.5-14.5); WHITE BLOOD COUNT 11.1 X10'3 (4.5-11.0)
[2021-03-13 02:13] LABS: ALANINE AMINOTRANSFERASE 18 U/L (12-78); ALBUMIN 3.5 G/DL (3.4-5.0); ALBUMIN/GLOBULIN RATIO 1.3 (1.1-1.5); ALKALINE PHOSPHATASE 130 IU/L (46-116); ANION GAP 8 (8-16); ASPARTATE AMINO TRANSFERASE 27 U/L (10-37); BILIRUBIN,TOTAL 1.1 MG/DL (0.1-1.0); BLOOD UREA NITROGEN 21 MG/DL (7-18); BUN/CREATININE RATIO 12.1 (5.4-32.0); CALCIUM 8.6 MG/DL (8.5-10.1); CHLORIDE 104 MMOL/L (99-107); CREATININE 1.74 MG/DL (0.60-1.10); GLUCOSE 72 MG/DL (70-104); POTASSIUM 3.9 MMOL/L (3.5-5.1); SODIUM 137 MMOL/L (135-145); TOTAL CARBON DIOXIDE 25.5 MMOL/L (24-32); TOTAL PROTEIN 6.1 G/DL (6.4-8.2); eGFR 39 ML/MIN
[2021-03-13 03:09] LABS: APTT 38 SECONDS (22-32); D-DIMER 0.92 MG/L FEU (0-0.50)
[2021-03-13] MEDS ORDERED: magnesium hydroxide 30ml (MOM) UD suspension PO PRN (03:10)
[2021-03-13] MEDS ORDERED: morphine 2 MG/ML inj. syringe IV PRN (03:10)
[2021-03-13] MEDS ORDERED: ondansetron/PF 4mg/2ml inj IV PRN (03:10)
[2021-03-13] MEDS ORDERED: diphenhydrAMINE 25mg capsule PO PRN (03:10)
[2021-03-13] MEDS ORDERED: acetaminophen 325mg tablet PO PRN (03:10)
[2021-03-13] MEDS ORDERED: mag hydrox/Alum hydrox/simeth 30ml oral suspension PO PRN (03:10)
[2021-03-13] MEDS ORDERED: diphenhydrAMINE 50 mg/ml inj IV PRN (03:10)
[2021-03-13] MEDS ORDERED: ondansetron 4mg rapidly disintigrating tab PO PRN (03:10)
[2021-03-13] MEDS ORDERED: bisacodyl 10mg suppository rectal RC PRN (03:10)
[2021-03-13] MEDS ORDERED: albumin (human) 25% 100ml IV 100 ML IV ONE (03:15)
[2021-03-13 04:55] LABS: MAGNESIUM 1.9 MG/DL (1.5-2.4); PHOSPHORUS 4.1 MG/DL (2.3-4.5)
[2021-03-13 05:02] LABS: HEMOGLOBIN A1C 5.3 % (4.5-6.2)
--- NOTE | 2021-03-13 06:30 | NUR ---
Patient resting quietly; call light in reach.
[2021-03-13] MEDS: pantoprazole 40mg Tablet.DR PO SCH (07:30)
[2021-03-13] MEDS ORDERED: furosemide 10 MG/1 ML 10ml inj IV SCH (08:00)
[2021-03-13] MEDS: docusate sod 100mg capsule PO SCH ×2 (08:00→20:00)
--- NOTE | 2021-03-13 09:40 | NUR ---
Patient given urinal; stands at bedside to use without assistance.
--- NOTE | 2021-03-13 09:51 | NUR ---
Oral medications not given as patient is on BiPap.
[2021-03-13] MEDS ORDERED: SACU1TAB PO (11:16)
[2021-03-13] MEDS ORDERED: FLUD0.1T PO (11:16)
[2021-03-13] MEDS: morphine 2 MG/ML inj. syringe IV PRN (11:55)
--- NOTE | 2021-03-13 13:35 | NUR ---
Patient sleeping; no apparent distress.
--- NOTE | 2021-03-13 14:17 | NUR ---
Patient removed BiPap and states, "it's too much." RT paged. Oxygen saturation 87% on room air; patient placed on 4 liters nasal cannula.
--- NOTE | 2021-03-13 14:20 | NUR ---
Patient cleaned of urinary incontinence; bedding changed; patient placed in clean gown.
--- NOTE | 2021-03-13 14:35 | NUR ---
RT at bedside; BiPap placed on patient.
--- NOTE | 2021-03-13 14:45 | NUR ---
Patient wheezing; hospitalist paged for RT order to assess and treat.
[2021-03-13] MEDS ORDERED: ipratropium/albuterol 3ml nebule NEB PRN (15:00)
[2021-03-13] MEDS: ipratropium/albuterol 3ml nebule NEB SCH ×3 (16:12→23:44)
[2021-03-13] MEDS ORDERED: methylPREDNISolone sod succ 125mg/2ml vial IV ONE (16:35)
[2021-03-13] MEDS: CefTRIAXone/D5W-Rocephin 1gm 50 ML IV SCH (17:21)
[2021-03-13 18:12] LABS: ABG BASE EXCESS -4.9 mmol/L (-2.0-2.0); ABG HCO3 21.9 mmol/L (22.0-26.0); ABG OXYGEN SATURATION 94.7 % (94-97); ABG PCO2 (T) 46.9 mmHg (35.0-48.0); ALLEN'S TEST POSITIVE; FCOHb 0.7 % (0.0-3.9); FMetHb 0.3 % (0.0-1.5); FO2Hb 93.8 % (94-97); RESPIRATORY RATE 16 b/min; TOTAL HEMOGLOBIN 13.9 G/dl (14.0-18.0)
[2021-03-13] MEDS: furosemide 10 MG/1 ML 10ml inj IV SCH (20:00)
[2021-03-13] MEDS: methylPREDNISolone sod succ 125mg/2ml vial IV SCH (20:00)
[2021-03-14] MEDS ORDERED: atenolol 25mg tablet PO ONE
[2021-03-14 01:23] VITALS: BP 122/86
[2021-03-14] MEDS: methylPREDNISolone sod succ 125mg/2ml vial IV SCH ×4 (01:59→20:31)
[2021-03-14] MEDS: levalbuterol 0.63mg/3ml nebule IH SCH ×6 (02:27→23:32)
--- NOTE | 2021-03-14 06:20 | NUR ---
Patient in room PCU 3015. I have received report from Ashli HAWKINS and had the opportunity to ask questions and assume patient care. Patient resting in bed in no acute distress.
[2021-03-14 06:53] LABS: BASOPHILS % (AUTO) 0.1 % (0-1); EOSINOPHILS % (AUTO) 0.1 % (0-6); HEMATOCRIT 42.6 % (42.0-52.0); HEMOGLOBIN 14.1 g/dl (14.0-17.9); LYMPHOCYTES % (AUTO) 29.9 % (21-51); MEAN CORPUSCULAR HEMOGLOBIN 29.7 PG (27.0-31.0); MEAN CORPUSCULAR HGB CONC 33.1 g/dL (33.0-36.5); MEAN CORPUSCULAR VOLUME 89.6 FL (78-98); MEAN PLATELET VOLUME 8.7 FL (7.4-10.4); MONOCYTES # (AUTO) 0.1 X10'3 (0-0.9); MONOCYTES % (AUTO) 0.8 % (2-12); NEUTROPHILS # (AUTO) 4.6 X10'3 (1.8-7.7); NEUTROPHILS % (AUTO) 69.1 % (42-75); PLATELET COUNT 128 X10'3 (140-440); RED BLOOD COUNT 4.75 X10'6 (4.70-6.10); RED CELL DISTRIBUTION WIDTH 16.8 % (11.5-14.5); WHITE BLOOD COUNT 6.7 X10'3 (4.5-11.0)
[2021-03-14 07:00] VITALS: BP 154/81
[2021-03-14 07:27] LABS: ALANINE AMINOTRANSFERASE 15 U/L (12-78); ALBUMIN 3.3 G/DL (3.4-5.0); ALBUMIN/GLOBULIN RATIO 1.1 (1.1-1.5); ALKALINE PHOSPHATASE 114 IU/L (46-116); ANION GAP 15 (8-16); ASPARTATE AMINO TRANSFERASE 23 U/L (10-37); BILIRUBIN,TOTAL 0.8 MG/DL (0.1-1.0); BLOOD UREA NITROGEN 30 MG/DL (7-18); BUN/CREATININE RATIO 17.1 (5.4-32.0); CALCIUM 8.5 MG/DL (8.5-10.1); CHLORIDE 105 MMOL/L (99-107); CHOL/HDL RATIO 2.8 (0.00-4.99); CHOLESTEROL 83 MG/DL (0-200); CREATININE 1.75 MG/DL (0.60-1.10); GLUCOSE 162 MG/DL (70-104); HDL CHOLESTEROL 30 MG/DL (35-60); LDL CHOLESTEROL 39 MG/DL (50-100); POTASSIUM 4.3 MMOL/L (3.5-5.1); SODIUM 142 MMOL/L (135-145); TOTAL PROTEIN 6.3 G/DL (6.4-8.2); TRIGLYCERIDES 50 MG/DL (20-135); eGFR 39 ML/MIN
[2021-03-14] MEDS: pantoprazole 40mg Tablet.DR PO SCH (08:50)
[2021-03-14] MEDS: furosemide 10 MG/1 ML 10ml inj IV SCH ×2 (08:51→20:30)
[2021-03-14] MEDS ORDERED: azithromycin/NS 500mg/250ml 250 ML IV ONE (09:25)
[2021-03-14 11:00] VITALS: BP 124/99
[2021-03-14] MEDS: atenolol 25mg tablet PO SCH (11:34)
[2021-03-14] MEDS: CefTRIAXone/D5W-Rocephin 1gm 50 ML IV SCH (11:34)
--- NOTE | 2021-03-14 13:18 | NUR ---
patient confused and had several incontinent episodes. Addendum: 03/14/21 at 1319 by Mariel Dyer RN bedding cleaned and patient changed and is clean and dry - will try condom cath
[2021-03-14 15:00] VITALS: BP 102/57
[2021-03-14 18:00] VITALS: BP 110/80
--- NOTE | 2021-03-14 18:17 | NUR ---
Problems reprioritized. Patient report given, questions answered & plan of care reviewed with Matthew RN. Patient resting in bed in no acute distress.
[2021-03-14] MEDS: sacubitril/valsartan 24mg-26mg tablet PO SCH (20:29)
[2021-03-14] MEDS: apixaban 5mg tablet PO SCH (20:30)
[2021-03-14 22:00] VITALS: BP 104/68
[2021-03-14] MEDS: ziprasidone IM 20mg inj **IM only IM PRN (23:04)
[2021-03-15] MEDS: methylPREDNISolone sod succ 125mg/2ml vial IV SCH ×3 (01:54→14:04)
[2021-03-15 02:00] VITALS: BP 109/65
[2021-03-15] MEDS: levalbuterol 0.63mg/3ml nebule IH SCH ×6 (02:52→23:30)
[2021-03-15] MEDS: ziprasidone IM 20mg inj **IM only IM PRN (05:14)
--- NOTE | 2021-03-15 05:34 | NUR ---
Patient during the shift was difficult to redirect. At 8pm patient took off his oxygen, and was noted to have desaturated to the 70s. He had also taken out his peripheral IV, and his condom catheter, as well as his ECG leads. He was noted just about to get out of bed. He was unable to be redirected, and at one time became combative, and threw at least two punches. MD Lala made aware, and orders for Geodon IM q 6hrs PRN, as well as bilateral upper extremities soft wrist restraints noted and carried out. IVs replaced, but patient still managed to pull it out a second, and even a third time. Patient administered Geodon IM at 9pm, and he was able to sleep until 11pm, after which he was still attempting to take out his wires, and IV and condom catheter. Patient`s condom catheter was replaced three times during the shift. At 5am patient administered another dose of Geodon IM. Patient still noted with screaming episodes as at this minute. Vitals stable during all this though, and patient denied respiratory and physical distress during the shift. Will continue to monitor.
--- NOTE | 2021-03-15 06:18 | NUR ---
Patient in room U 3015. I have received report from Matthew HAWKINS and had the opportunity to ask questions and assume patient care. Patient sleeping in bed in no acute distress.
[2021-03-15 07:00] VITALS: BP 102/54
[2021-03-15 07:12] LABS: BASOPHILS % (AUTO) 0.1 % (0-1); EOSINOPHILS % (AUTO) 0 % (0-6); HEMATOCRIT 38.6 % (42.0-52.0); HEMOGLOBIN 12.9 g/dl (14.0-17.9); LYMPHOCYTES # (AUTO) 2.1 X10'3 (1.1-4.8); LYMPHOCYTES % (AUTO) 34.5 % (21-51); MEAN CORPUSCULAR HEMOGLOBIN 29.3 PG (27.0-31.0); MEAN CORPUSCULAR HGB CONC 33.4 g/dL (33.0-36.5); MEAN CORPUSCULAR VOLUME 87.8 FL (78-98); MEAN PLATELET VOLUME 8.2 FL (7.4-10.4); MONOCYTES # (AUTO) 0.1 X10'3 (0-0.9); MONOCYTES % (AUTO) 1.9 % (2-12); NEUTROPHILS # (AUTO) 3.8 X10'3 (1.8-7.7); NEUTROPHILS % (AUTO) 63.5 % (42-75); PLATELET COUNT 143 X10'3 (140-440); RED BLOOD COUNT 4.39 X10'6 (4.70-6.10); RED CELL DISTRIBUTION WIDTH 16.2 % (11.5-14.5)
[2021-03-15 07:41] LABS: ALANINE AMINOTRANSFERASE 12 U/L (12-78); ALBUMIN 3.4 G/DL (3.4-5.0); ALBUMIN/GLOBULIN RATIO 1.3 (1.1-1.5); ALKALINE PHOSPHATASE 94 IU/L (46-116); ANION GAP 11 (8-16); ASPARTATE AMINO TRANSFERASE 15 U/L (10-37); BILIRUBIN,TOTAL 0.6 MG/DL (0.1-1.0); BLOOD UREA NITROGEN 49 MG/DL (7-18); BUN/CREATININE RATIO 26.3 (5.4-32.0); CALCIUM 8.5 MG/DL (8.5-10.1); CHLORIDE 105 MMOL/L (99-107); CREATININE 1.86 MG/DL (0.60-1.10); GLUCOSE 204 MG/DL (70-104); POTASSIUM 3.6 MMOL/L (3.5-5.1); SODIUM 142 MMOL/L (135-145); TOTAL CARBON DIOXIDE 26.1 MMOL/L (24-32); TOTAL PROTEIN 6.1 G/DL (6.4-8.2); eGFR 37 ML/MIN
[2021-03-15] MEDS: atenolol 25mg tablet PO SCH (08:00)
[2021-03-15] MEDS: furosemide 10 MG/1 ML 10ml inj IV SCH ×2 (08:00→20:43)
[2021-03-15] MEDS: azithromycin/NS 500mg/250ml 250 ML IV SCH (09:37)
[2021-03-15] MEDS: CefTRIAXone/D5W-Rocephin 1gm 50 ML IV SCH (09:37)
[2021-03-15] MEDS: pantoprazole 40mg Tablet.DR PO SCH (09:38)
[2021-03-15] MEDS: digoxin 125mcg (0.125mg) tablet PO SCH (09:39)
[2021-03-15] MEDS: sacubitril/valsartan 24mg-26mg tablet PO SCH ×2 (09:39→20:41)
[2021-03-15] MEDS: fludrocortisone acetate 0.1mg tablet PO SCH (09:39)
[2021-03-15] MEDS: tamsulosin 0.4mg capsule PO SCH (09:39)
[2021-03-15] MEDS: ferrous sulfate 325mg tablet PO SCH (09:39)
[2021-03-15] MEDS: apixaban 5mg tablet PO SCH ×2 (09:40→20:41)
[2021-03-15 11:00] VITALS: BP 122/76
--- NOTE | 2021-03-15 13:26 | NUR ---
Page to Respiratory 2180C Champ. Pt has new order for ABG . Thank you Mariel [phone]
--- NOTE | 2021-03-15 13:39 | NUR ---
Page Sent promotional table spacer PAGER ID: [phone] MESSAGE: [id number] Oakes. Spoke with pt he is an alcoholic and has been drinking lately. She has been finding bottles around the house. He also has had increased confusion and been refusing to get out of bed for the last month. Mariel [phone]
[2021-03-15 13:44] LABS: ABG BASE EXCESS 0.5 mmol/L (-2.0-2.0); ABG HCO3 25.4 mmol/L (22.0-26.0); ABG OXYGEN SATURATION 95.2 % (94-97); ABG PCO2 (T) 41.1 mmHg (35.0-48.0); ABG PO2 (T) 75.2 mmHg (75.0-100.0); ALLEN'S TEST POSITIVE; FCOHb 0.1 % (0.0-3.9); FMetHb 0.3 % (0.0-1.5); FO2Hb 94.8 % (94-97); PATIENT TEMPERATURE 36.8; TOTAL HEMOGLOBIN 13.7 G/dl (14.0-18.0)
--- NOTE | 2021-03-15 13:48 | NUR ---
Page Sent promotional table spacer PAGER ID: [phone] MESSAGE: [phone] Champ. LISA report available in [facility]. Mariel [phone]
[2021-03-15 15:00] VITALS: BP 134/59
[2021-03-15] MEDS ORDERED: LORazepam 2 mg/ml vial IV PRN (15:00)
[2021-03-15] MEDS ORDERED: haloperidol lactate 5mg/ml inj IM PRN (15:00)
[2021-03-15] MEDS ORDERED: haloperidol 5mg tablet PO PRN (15:00)
[2021-03-15] MEDS ORDERED: LORazepam 1 MG tablet PO PRN (15:00)
--- NOTE | 2021-03-15 15:00 | NUR ---
spoke with Dr. Bergeron on the phone it is ok to use gtube for tube feedings and to order tube feed diet consult. Copy Messenger Maninder notified . I will change order to reflect change to tube feed consult instead of TPN consult. Addendum: 03/15/21 at 1504 by Mariel Dyer RN Note entered for wrong patient . Mr. Oakes does not require tube feeds please disregard
--- NOTE | 2021-03-15 15:03 | NUR ---
Note entered for wrong patient . Mr. Oakes does not require tube feeds please disregard
[2021-03-15 18:00] VITALS: BP 122/59
--- NOTE | 2021-03-15 18:10 | NUR ---
Problems reprioritized. Patient report given, questions answered & plan of care reviewed with Matthew RN. Patient resting in bed in no acute distress. Sitter present.
[2021-03-15] MEDS: thiamine 100mg/ml 2ml inj. IV SCH (20:43)
[2021-03-15] MEDS: methylPREDNISolone sod succ/PF 40mg inj. IV SCH (20:44)
[2021-03-15 22:00] VITALS: BP 130/85
[2021-03-16 02:00] VITALS: BP 136/81
[2021-03-16] MEDS: HYDROcodone/acetaminophen 5mg/325mg tablet PO PRN (02:28)
[2021-03-16] MEDS: levalbuterol 0.63mg/3ml nebule IH SCH ×6 (03:53→23:09)
[2021-03-16] MEDS: morphine 2 MG/ML inj. syringe IV PRN (04:14)
[2021-03-16 06:00] VITALS: BP 135/78
[2021-03-16 07:14] LABS: BASOPHILS % (AUTO) 0 % (0-1); EOSINOPHILS % (AUTO) 0 % (0-6); HEMATOCRIT 38.9 % (42.0-52.0); HEMOGLOBIN 13.1 g/dl (14.0-17.9); LYMPHOCYTES # (AUTO) 2.3 X10'3 (1.1-4.8); LYMPHOCYTES % (AUTO) 32.6 % (21-51); MEAN CORPUSCULAR HEMOGLOBIN 29.7 PG (27.0-31.0); MEAN CORPUSCULAR HGB CONC 33.7 g/dL (33.0-36.5); MEAN CORPUSCULAR VOLUME 88.2 FL (78-98); MEAN PLATELET VOLUME 8.4 FL (7.4-10.4); MONOCYTES # (AUTO) 0.2 X10'3 (0-0.9); MONOCYTES % (AUTO) 2.4 % (2-12); NEUTROPHILS # (AUTO) 4.6 X10'3 (1.8-7.7); PLATELET COUNT 140 X10'3 (140-440); RED BLOOD COUNT 4.41 X10'6 (4.70-6.10); RED CELL DISTRIBUTION WIDTH 15.8 % (11.5-14.5); WHITE BLOOD COUNT 7.1 X10'3 (4.5-11.0)
[2021-03-16] MEDS: pantoprazole 40mg Tablet.DR PO SCH (07:30)
[2021-03-16 07:31] LABS: ALANINE AMINOTRANSFERASE 19 U/L (12-78); ALBUMIN 3.6 G/DL (3.4-5.0); ALBUMIN/GLOBULIN RATIO 1.3 (1.1-1.5); ALKALINE PHOSPHATASE 87 IU/L (46-116); ANION GAP 11 (8-16); ASPARTATE AMINO TRANSFERASE 15 U/L (10-37); BILIRUBIN,TOTAL 0.7 MG/DL (0.1-1.0); BLOOD UREA NITROGEN 46 MG/DL (7-18); BUN/CREATININE RATIO 27.7 (5.4-32.0); CALCIUM 8.5 MG/DL (8.5-10.1); CHLORIDE 104 MMOL/L (99-107); CREATININE 1.66 MG/DL (0.60-1.10); GLUCOSE 169 MG/DL (70-104); POTASSIUM 3.2 MMOL/L (3.5-5.1); SODIUM 143 MMOL/L (135-145); TOTAL PROTEIN 6.3 G/DL (6.4-8.2); eGFR 42 ML/MIN
[2021-03-16] MEDS ORDERED: predniSONE 20 mg tablet PO SCH (08:00)
[2021-03-16] MEDS: folic acid 1mg/0.2ml inj IV SCH (08:55)
[2021-03-16] MEDS: thiamine 100mg/ml 2ml inj. IV SCH ×3 (08:55→22:01)
[2021-03-16] MEDS: CefTRIAXone/D5W-Rocephin 1gm 50 ML IV SCH (08:55)
[2021-03-16] MEDS: methylPREDNISolone sod succ/PF 40mg inj. IV SCH ×2 (08:55→20:33)
[2021-03-16] MEDS: furosemide 10 MG/1 ML 10ml inj IV SCH ×2 (08:55→20:34)
[2021-03-16] MEDS: atenolol 25mg tablet PO SCH (08:56)
[2021-03-16] MEDS: sacubitril/valsartan 24mg-26mg tablet PO SCH ×2 (08:56→20:33)
[2021-03-16] MEDS: ferrous sulfate 325mg tablet PO SCH (08:56)
[2021-03-16] MEDS: digoxin 125mcg (0.125mg) tablet PO SCH (08:56)
[2021-03-16] MEDS: tamsulosin 0.4mg capsule PO SCH (08:56)
[2021-03-16] MEDS: multivitamins, therapeutics tablet PO SCH (08:56)
[2021-03-16] MEDS: azithromycin/NS 500mg/250ml 250 ML IV SCH (08:56)
[2021-03-16] MEDS: apixaban 5mg tablet PO SCH ×2 (08:56→20:35)
[2021-03-16] MEDS: fludrocortisone acetate 0.1mg tablet PO SCH (08:56)
[2021-03-16] MEDS: HYDROcodone/acetaminophen 10/325mg tab PO PRN ×2 (09:09→20:47)
[2021-03-16 11:00] VITALS: BP 121/71
[2021-03-16 15:00] VITALS: BP 133/64
[2021-03-16 18:00] VITALS: BP 127/82
[2021-03-16] MEDS: lactobacillus rhamnosus 10,000 MMU CELLS/CAPSULE PO SCH (20:33)
[2021-03-16] MEDS ORDERED: potassium Cl 40MEQ/1/2NS 520ml 520 ML IV PRN (21:55)
[2021-03-16] MEDS ORDERED: potassium Cl 20 mEq SR tablet PO PRN (21:55)
[2021-03-16] MEDS ORDERED: magnesium 4gm in 100ml NS 100 ML IV PRN (21:55)
[2021-03-16] MEDS ORDERED: magnesium Cl slow-release 64mg tablet PO PRN (21:55)
[2021-03-16 22:00] VITALS: BP 124/55
[2021-03-16] MEDS: potassium Cl 20 mEq SR tablet PO PRN (22:01)
--- NOTE | 2021-03-16 23:45 | NUR ---
placed bed tiler for patient whose feet are pushing the end of the bed. pt is 6'4" tall. pt tolerated better.
--- NOTE | 2021-03-16 23:47 | NUR ---
pt refused cpap. states he wears 4L oxygen at home. turned oxygen up to 4l as patient sats 90-91% on 2L. will continue to monitor
[2021-03-17 02:00] VITALS: BP 130/80
[2021-03-17] MEDS: levalbuterol 0.63mg/3ml nebule IH SCH ×4 (02:48→16:01)
--- NOTE | 2021-03-17 06:36 | NUR ---
reported to days. noted pt awaiting PT and assistance to shower today. condom cath intact.
--- NOTE | 2021-03-17 06:38 | NUR ---
Patient in room PCU 3023. I have received report from Janine HAWKINS and had the opportunity to ask questions and assume patient care.
[2021-03-17 06:48] LABS: BASOPHILS % (AUTO) 0.1 % (0-1); EOSINOPHILS % (AUTO) 0 % (0-6); HEMATOCRIT 37.8 % (42.0-52.0); HEMOGLOBIN 12.5 g/dl (14.0-17.9); LYMPHOCYTES # (AUTO) 3.2 X10'3 (1.1-4.8); LYMPHOCYTES % (AUTO) 39.8 % (21-51); MEAN CORPUSCULAR HEMOGLOBIN 29.4 PG (27.0-31.0); MEAN CORPUSCULAR HGB CONC 33.2 g/dL (33.0-36.5); MEAN CORPUSCULAR VOLUME 88.5 FL (78-98); MEAN PLATELET VOLUME 8.2 FL (7.4-10.4); MONOCYTES # (AUTO) 0.2 X10'3 (0-0.9); MONOCYTES % (AUTO) 2.2 % (2-12); NEUTROPHILS # (AUTO) 4.7 X10'3 (1.8-7.7); NEUTROPHILS % (AUTO) 57.9 % (42-75); PLATELET COUNT 135 X10'3 (140-440); RED BLOOD COUNT 4.27 X10'6 (4.70-6.10); RED CELL DISTRIBUTION WIDTH 15.9 % (11.5-14.5)
[2021-03-17 06:55] VITALS: BP 177/80
[2021-03-17 07:02] LABS: ALANINE AMINOTRANSFERASE 21 U/L (12-78); ALBUMIN 3.5 G/DL (3.4-5.0); ALBUMIN/GLOBULIN RATIO 1.5 (1.1-1.5); ALKALINE PHOSPHATASE 80 IU/L (46-116); ANION GAP 8 (8-16); ASPARTATE AMINO TRANSFERASE 37 U/L (10-37); BILIRUBIN,TOTAL 0.7 MG/DL (0.1-1.0); BLOOD UREA NITROGEN 46 MG/DL (7-18); BUN/CREATININE RATIO 31.5 (5.4-32.0); CALCIUM 8.2 MG/DL (8.5-10.1); CHLORIDE 105 MMOL/L (99-107); CREATININE 1.46 MG/DL (0.60-1.10); GLUCOSE 161 MG/DL (70-104); POTASSIUM 3.6 MMOL/L (3.5-5.1); SODIUM 143 MMOL/L (135-145); TOTAL CARBON DIOXIDE 29.9 MMOL/L (24-32); TOTAL PROTEIN 5.9 G/DL (6.4-8.2); eGFR 48 ML/MIN
[2021-03-17] MEDS: K and/or MAG REPLACEMENT MC SCH ×2 (08:00→19:57)
[2021-03-17] MEDS: CefTRIAXone/D5W-Rocephin 1gm 50 ML IV SCH (08:27)
[2021-03-17] MEDS: azithromycin/NS 500mg/250ml 250 ML IV SCH (08:27)
[2021-03-17] MEDS: sacubitril/valsartan 24mg-26mg tablet PO SCH ×2 (08:28→19:53)
[2021-03-17] MEDS: pantoprazole 40mg Tablet.DR PO SCH (08:28)
[2021-03-17] MEDS: multivitamins, therapeutics tablet PO SCH (08:28)
[2021-03-17] MEDS: lactobacillus rhamnosus 10,000 MMU CELLS/CAPSULE PO SCH ×2 (08:28→19:53)
[2021-03-17] MEDS: tamsulosin 0.4mg capsule PO SCH (08:28)
[2021-03-17] MEDS: fludrocortisone acetate 0.1mg tablet PO SCH (08:28)
[2021-03-17] MEDS: ferrous sulfate 325mg tablet PO SCH (08:28)
[2021-03-17] MEDS: atenolol 25mg tablet PO SCH (08:29)
[2021-03-17] MEDS: digoxin 125mcg (0.125mg) tablet PO SCH (08:29)
[2021-03-17] MEDS: apixaban 5mg tablet PO SCH ×2 (08:30→19:54)
[2021-03-17] MEDS: methylPREDNISolone sod succ/PF 40mg inj. IV SCH ×2 (08:31→23:27)
[2021-03-17] MEDS: folic acid 1mg/0.2ml inj IV SCH (08:31)
[2021-03-17] MEDS: thiamine 100mg/ml 2ml inj. IV SCH ×3 (08:32→19:55)
[2021-03-17] MEDS: HYDROcodone/acetaminophen 10/325mg tab PO PRN (08:53)
--- NOTE | 2021-03-17 08:58 | NUR ---
Pharmacy paged regarding lasix "good morning, the big lasix vial: 100mg/10ml: will not scan. i returned one and pulled another to see if that would resolve the problem but it doesnt. please advise. Thank you, -Tiana MORSE"
[2021-03-17] MEDS: furosemide 10 MG/1 ML 10ml inj IV SCH ×2 (09:28→19:54)
--- NOTE | 2021-03-17 10:05 | NUR ---
Initial: Pt presented with c/o SOB and admit for acute respiratory failure hypoxemic and COPD exacerbation. Per MD note during admit pt became confused and disoriented and per RN patient's SO reports finding multiple empty liquor bottle around the house. Pt receiving routine Thiamine, Folic acid, and MVI for EtOH hx. Pt currently on a heart healthy diet and eating well with average 78% PO intake since admit. Noted pt documented to be 73" and 250 kg resulting in BMI of 72.7, though current documented wt is not scaled and likely not accurate, as well as height. Pt with scaled wt h/o 109 kg 02/05/21 and pt 75-76" at most admits per EMR. Per sales performance manager this admit pt 6'4" (76"). BMI 29.26 using 76" and 109 kg. Noted no BM since admit and LBM unknown per physical assessment. PRN bowel care available. D/w dietary to send prunes and prune juice with next meal to assist with bowel regularity. Will continue to follow and monitor need for further nutrition intervention. Recommendations: 1) Advance to regular diet with physician approval; Low LDL/HDL though rest of lipid panel WNL 2) Monitor need for additional protein/ONS 3) Continue routine Thiamine, Folic acid, and MVI for EtOH hx 4) Routine bowel care 5) Scaled weight this admit; weekly scaled weights thereafter Addendum: 03/17/21 at [address] Amended: Links added.
[2021-03-17 11:00] VITALS: BP 102/60
[2021-03-17 15:00] VITALS: BP 143/73
[2021-03-17 18:00] VITALS: BP 119/58
--- NOTE | 2021-03-17 18:06 | NUR ---
Problems reprioritized. Patient report given, questions answered & plan of care reviewed with Janine HAWKINS. Pt smi fowlers in bed workign on dinner.
[2021-03-17] MEDS ORDERED: ipratropium/albuterol 3ml nebule NEB PRN (19:20)
[2021-03-17] MEDS: acetaminophen 325mg tablet PO PRN (19:55)
[2021-03-17] MEDS: potassium Cl 20 mEq SR tablet PO PRN (19:57)
[2021-03-17] MEDS: ipratropium/albuterol 3ml nebule NEB SCH ×2 (20:33→23:45)
[2021-03-17 22:00] VITALS: BP 135/94
[2021-03-17] MEDS: ziprasidone IM 20mg inj **IM only IM PRN (23:27)
[2021-03-18 02:00] VITALS: BP 132/68
[2021-03-18] MEDS: ipratropium/albuterol 3ml nebule NEB SCH ×6 (04:03→23:39)
--- NOTE | 2021-03-18 06:18 | NUR ---
reported to days. pt finally sleeping. sats 100%
[2021-03-18 06:28] LABS: BASOPHILS % (AUTO) 0.1 % (0-1); EOSINOPHILS % (AUTO) 0.1 % (0-6); HEMATOCRIT 38.3 % (42.0-52.0); HEMOGLOBIN 12.5 g/dl (14.0-17.9); LYMPHOCYTES # (AUTO) 3.6 X10'3 (1.1-4.8); LYMPHOCYTES % (AUTO) 40.3 % (21-51); MEAN CORPUSCULAR HEMOGLOBIN 29.2 PG (27.0-31.0); MEAN CORPUSCULAR HGB CONC 32.7 g/dL (33.0-36.5); MEAN CORPUSCULAR VOLUME 89.2 FL (78-98); MEAN PLATELET VOLUME 8.3 FL (7.4-10.4); MONOCYTES # (AUTO) 0.4 X10'3 (0-0.9); MONOCYTES % (AUTO) 4.5 % (2-12); NEUTROPHILS # (AUTO) 4.9 X10'3 (1.8-7.7); PLATELET COUNT 144 X10'3 (140-440); RED BLOOD COUNT 4.29 X10'6 (4.70-6.10); RED CELL DISTRIBUTION WIDTH 15.4 % (11.5-14.5)
--- NOTE | 2021-03-18 06:34 | NUR ---
Patient in room PCU 3023. I have received report from Janine HAWKINS and had the opportunity to ask questions and assume patient care. Pt with sitter at bedside, sleeping at this time, however per report pt repeatedly pulling on lines and removing night monitor leads etc. will continue to maintain safety measures and monitor closely.
[2021-03-18 07:00] VITALS: BP 127/66
--- NOTE | 2021-03-18 07:01 | NUR ---
Q-T abruptly widening. >.21. Dr. Bergeron Paged. EKG Stat "PAGER ID: [phone] MESSAGE: RE: Ludin Oakes: [id number]: Acute Q-T widening. was .16 yesterday, >.21 now. Getting EKG. pt asymptomatic. -Tiana #[phone]"
[2021-03-18 07:04] LABS: ALANINE AMINOTRANSFERASE 34 U/L (12-78); ALBUMIN 3.4 G/DL (3.4-5.0); ALBUMIN/GLOBULIN RATIO 1.5 (1.1-1.5); ALKALINE PHOSPHATASE 72 IU/L (46-116); ANION GAP 8 (8-16); ASPARTATE AMINO TRANSFERASE 42 U/L (10-37); BILIRUBIN,TOTAL 0.7 MG/DL (0.1-1.0); BLOOD UREA NITROGEN 49 MG/DL (7-18); CALCIUM 8.2 MG/DL (8.5-10.1); CHLORIDE 107 MMOL/L (99-107); CREATININE 1.53 MG/DL (0.60-1.10); GLUCOSE 160 MG/DL (70-104); POTASSIUM 3.7 MMOL/L (3.5-5.1); SODIUM 145 MMOL/L (135-145); TOTAL CARBON DIOXIDE 30.4 MMOL/L (24-32); TOTAL PROTEIN 5.6 G/DL (6.4-8.2); eGFR 46 ML/MIN
--- NOTE | 2021-03-18 07:08 | NUR ---
Dr. Ryan paged. "PAGER ID: [phone] MESSAGE: RE: Ludin Oakes: [phone]: Acute Q-T widening. was .16 yesterday, >.21 now. Getting EKG. pt restless and confused. -Tiana #[phone]"
--- NOTE | 2021-03-18 07:30 | NUR ---
Pt kicking, hitting, confused, unable to follow any direction, trying to climb out of bed despite needs met, while pulling off EKG leads x5, pulling off condom cath and reaching to pull out IV. BUE soft foam restraints reinitiated. Dr. Ryan Paged. New order for soft foam restraints and side rails x4. sitter at bedside. breathing within range, CRM intact. clear discontinuation of restraint criteria explained, with if than statements, though pt with little to no verbalization of understanding. Pt impulsive behavior clearly a risk to his safety as well as the safety of staff and least restrictive measures ineffective, thus restraints initiated. Addendum: 03/18/21 at 0804 by Tiana Dietz RN Dr. Ryan also ordered ativan 0.5mg x1. hold off on stronger doses at this time.
[2021-03-18] MEDS: K and/or MAG REPLACEMENT MC SCH ×2 (08:00→20:00)
[2021-03-18] MEDS: furosemide 10 MG/1 ML 10ml inj IV SCH ×2 (08:00→19:13)
[2021-03-18] MEDS ORDERED: LORazepam 2 mg/ml vial IV ONE ×2 (08:30→09:05)
[2021-03-18] MEDS: fludrocortisone acetate 0.1mg tablet PO SCH (09:18)
[2021-03-18] MEDS: azithromycin 250mg tablet PO SCH (09:18)
[2021-03-18] MEDS: ferrous sulfate 325mg tablet PO SCH (09:18)
[2021-03-18] MEDS: apixaban 5mg tablet PO SCH ×2 (09:18→19:12)
[2021-03-18] MEDS: digoxin 125mcg (0.125mg) tablet PO SCH (09:18)
[2021-03-18] MEDS: atenolol 25mg tablet PO SCH (09:18)
[2021-03-18] MEDS: folic acid 1mg/0.2ml inj IV SCH (09:19)
[2021-03-18] MEDS: CefTRIAXone/D5W-Rocephin 1gm 50 ML IV SCH (09:24)
[2021-03-18] MEDS: methylPREDNISolone sod succ/PF 40mg inj. IV SCH ×3 (09:30→23:48)
[2021-03-18] MEDS: thiamine 100mg/ml 2ml inj. IV SCH ×2 (09:30→15:59)
[2021-03-18] MEDS: multivitamins, therapeutics tablet PO SCH (09:31)
[2021-03-18] MEDS: sacubitril/valsartan 24mg-26mg tablet PO SCH ×2 (09:31→19:13)
[2021-03-18] MEDS: tamsulosin 0.4mg capsule PO SCH (09:31)
[2021-03-18] MEDS: lactobacillus rhamnosus 10,000 MMU CELLS/CAPSULE PO SCH ×2 (09:32→19:13)
[2021-03-18] MEDS: pantoprazole 40mg Tablet.DR PO SCH (09:32)
[2021-03-18 11:00] VITALS: BP 128/71
[2021-03-18 15:00] VITALS: BP 118/87
[2021-03-18 18:00] VITALS: BP 131/77
--- NOTE | 2021-03-18 18:34 | NUR ---
Problems reprioritized. Patient report given, questions answered & plan of care reviewed with Nadeen RN. Pt semi fowlers in bed sitter in room, pt eating dinner. no s/sx acute distress
[2021-03-18] MEDS: LORazepam 1 MG tablet PO PRN (21:58)
[2021-03-18 22:00] VITALS: BP 122/90
[2021-03-19 02:00] VITALS: BP 141/83
[2021-03-19] MEDS: ipratropium/albuterol 3ml nebule NEB SCH ×6 (03:40→23:21)
[2021-03-19 06:00] VITALS: BP 133/77
--- NOTE | 2021-03-19 06:30 | NUR ---
Patient in room PCU 3015. I have received report from Nadeen RN and had the opportunity to ask questions and assume patient care.
[2021-03-19] MEDS: pantoprazole 40mg Tablet.DR PO SCH (07:30)
[2021-03-19] MEDS: K and/or MAG REPLACEMENT MC SCH ×2 (08:00→19:56)
[2021-03-19] MEDS: fludrocortisone acetate 0.1mg tablet PO SCH (08:00)
[2021-03-19] MEDS: atenolol 25mg tablet PO SCH (08:00)
[2021-03-19] MEDS: apixaban 5mg tablet PO SCH ×2 (08:00→20:07)
[2021-03-19 08:06] LABS: BASOPHILS % (AUTO) 0.2 % (0-1); EOSINOPHILS % (AUTO) 0 % (0-6); HEMATOCRIT 37.4 % (42.0-52.0); HEMOGLOBIN 12.2 g/dl (14.0-17.9); LYMPHOCYTES # (AUTO) 5.9 X10'3 (1.1-4.8); LYMPHOCYTES % (AUTO) 46.7 % (21-51); MEAN CORPUSCULAR HGB CONC 32.5 g/dL (33.0-36.5); MEAN CORPUSCULAR VOLUME 89.3 FL (78-98); MEAN PLATELET VOLUME 8.4 FL (7.4-10.4); MONOCYTES # (AUTO) 0.5 X10'3 (0-0.9); MONOCYTES % (AUTO) 3.7 % (2-12); NEUTROPHILS # (AUTO) 6.2 X10'3 (1.8-7.7); NEUTROPHILS % (AUTO) 49.4 % (42-75); PLATELET COUNT 191 X10'3 (140-440); RED BLOOD COUNT 4.19 X10'6 (4.70-6.10); RED CELL DISTRIBUTION WIDTH 15.4 % (11.5-14.5); WHITE BLOOD COUNT 12.7 X10'3 (4.5-11.0)
[2021-03-19 08:38] LABS: ALANINE AMINOTRANSFERASE 35 U/L (12-78); ALBUMIN 3.3 G/DL (3.4-5.0); ALBUMIN/GLOBULIN RATIO 1.4 (1.1-1.5); ALKALINE PHOSPHATASE 69 IU/L (46-116); ANION GAP 7 (8-16); ASPARTATE AMINO TRANSFERASE 41 U/L (10-37); BILIRUBIN,TOTAL 0.7 MG/DL (0.1-1.0); BLOOD UREA NITROGEN 47 MG/DL (7-18); BUN/CREATININE RATIO 33.6 (5.4-32.0); CALCIUM 8.1 MG/DL (8.5-10.1); CHLORIDE 106 MMOL/L (99-107); GLUCOSE 148 MG/DL (70-104); POTASSIUM 4.1 MMOL/L (3.5-5.1); SODIUM 145 MMOL/L (135-145); TOTAL CARBON DIOXIDE 32.3 MMOL/L (24-32); TOTAL PROTEIN 5.7 G/DL (6.4-8.2); eGFR 51 ML/MIN
[2021-03-19] MEDS: CefTRIAXone/D5W-Rocephin 1gm 50 ML IV SCH (09:46)
[2021-03-19] MEDS: furosemide 10 MG/1 ML 10ml inj IV SCH ×2 (09:48→20:11)
[2021-03-19] MEDS: methylPREDNISolone sod succ/PF 40mg inj. IV SCH ×2 (09:48→17:00)
[2021-03-19] MEDS: multivitamins, therapeutics tablet PO SCH (09:49)
[2021-03-19] MEDS: tamsulosin 0.4mg capsule PO SCH (09:49)
[2021-03-19] MEDS: ferrous sulfate 325mg tablet PO SCH (09:50)
[2021-03-19] MEDS: digoxin 125mcg (0.125mg) tablet PO SCH (09:51)
[2021-03-19] MEDS: sacubitril/valsartan 24mg-26mg tablet PO SCH ×2 (09:51→20:07)
[2021-03-19] MEDS: lactobacillus rhamnosus 10,000 MMU CELLS/CAPSULE PO SCH ×2 (09:52→20:07)
[2021-03-19] MEDS: azithromycin 250mg tablet PO SCH (09:52)
[2021-03-19 11:00] VITALS: BP 122/64
[2021-03-19 15:00] VITALS: BP 120/64
[2021-03-19 18:00] VITALS: BP 139/91
--- NOTE | 2021-03-19 18:14 | NUR ---
Problems reprioritized. Patient report given, questions answered & plan of care reviewed with Ramu HAWKINS. Addendum: 03/19/21 at 1847 by Maria L Ramirez RN Problems reprioritized. Patient report given, questions answered & plan of care reviewed with Elana HAWKINS.
[2021-03-19 22:00] VITALS: BP 145/73
[2021-03-20] VITALS (7 sets, daily range): BP systolic 112–148; BP diastolic 59–92
[2021-03-20] MEDS ORDERED: diazepam inj 5 MG/ML inj. IV PRN (01:20)
[2021-03-20] MEDS: methylPREDNISolone sod succ/PF 40mg inj. IV SCH ×4 (02:21→23:44)
[2021-03-20] MEDS: ipratropium/albuterol 3ml nebule NEB SCH ×6 (02:44→23:45)
--- NOTE | 2021-03-20 03:00 | NUR ---
pt very loud and combative with staff and had to br put in 4 point restraints.Also given valium 10 mg iv without any results Approximately 1 hour later patient given haldol 5 mg /im and still continues to scream out loud and attempting to kick the staff. Patient was called at 05:00 am he sort off calm down but still combative.
[2021-03-20] MEDS: haloperidol lactate 5mg/ml inj IM PRN (03:18)
--- NOTE | 2021-03-20 06:51 | NUR ---
Problems reprioritized. Patient report given, questions answered & plan of care reviewed with
[2021-03-20] MEDS: K and/or MAG REPLACEMENT MC SCH ×2 (08:00→20:00)
[2021-03-20] MEDS: sacubitril/valsartan 24mg-26mg tablet PO SCH ×2 (08:11→21:59)
[2021-03-20] MEDS: CefTRIAXone/D5W-Rocephin 1gm 50 ML IV SCH (08:11)
[2021-03-20] MEDS: tamsulosin 0.4mg capsule PO SCH (08:12)
[2021-03-20] MEDS: lactobacillus rhamnosus 10,000 MMU CELLS/CAPSULE PO SCH ×2 (08:12→20:00)
[2021-03-20] MEDS: thiamine 100mg tablet PO SCH (08:12)
[2021-03-20] MEDS: pantoprazole 40mg Tablet.DR PO SCH (08:12)
[2021-03-20] MEDS: multivitamins, therapeutics tablet PO SCH (08:13)
[2021-03-20] MEDS: folic acid 1mg tablet PO SCH (08:13)
[2021-03-20] MEDS: digoxin 125mcg (0.125mg) tablet PO SCH (08:13)
[2021-03-20] MEDS: acetaminophen 325mg tablet PO PRN ×2 (08:13→14:26)
[2021-03-20] MEDS: apixaban 5mg tablet PO SCH ×2 (08:13→21:58)
[2021-03-20] MEDS: atenolol 25mg tablet PO SCH (08:14)
[2021-03-20] MEDS: LORazepam 1 MG tablet PO PRN ×2 (08:14→14:26)
[2021-03-20] MEDS: azithromycin 250mg tablet PO SCH (08:14)
[2021-03-20] MEDS: ferrous sulfate 325mg tablet PO SCH (08:14)
[2021-03-20] MEDS: fludrocortisone acetate 0.1mg tablet PO SCH (08:14)
[2021-03-20] MEDS: furosemide 10 MG/1 ML 10ml inj IV SCH ×2 (10:37→21:57)
--- NOTE | 2021-03-20 15:12 | NUR ---
PAGER ID: [phone] MESSAGE: Ludin Oakes [id number] Pt. restraint order needs to be put in again. It was not renewed yesterday so need new order please. Jessica [phone]
--- NOTE | 2021-03-20 18:22 | NUR ---
Gave report to April HAWKINS.
--- NOTE | 2021-03-20 18:30 | NUR ---
Patient in room PCU 3012. I have received report from Jessica HAWKINS and had the opportunity to ask questions and assume patient care.
[2021-03-20] MEDS: HYDROcodone/acetaminophen 5mg/325mg tablet PO PRN (22:06)
[2021-03-21 03:00] VITALS: BP 112/71
[2021-03-21] MEDS: ipratropium/albuterol 3ml nebule NEB SCH ×5 (03:43→20:57)
[2021-03-21 06:00] VITALS: BP 104/64
[2021-03-21] MEDS: pantoprazole 40mg Tablet.DR PO SCH (08:18)
[2021-03-21] MEDS: CefTRIAXone/D5W-Rocephin 1gm 50 ML IV SCH (08:19)
[2021-03-21] MEDS: methylPREDNISolone sod succ/PF 40mg inj. IV SCH ×3 (08:19→23:24)
[2021-03-21] MEDS: furosemide 10 MG/1 ML 10ml inj IV SCH ×2 (08:19→19:31)
[2021-03-21] MEDS: ferrous sulfate 325mg tablet PO SCH (08:21)
[2021-03-21] MEDS: apixaban 5mg tablet PO SCH ×2 (08:21→19:31)
[2021-03-21] MEDS: digoxin 125mcg (0.125mg) tablet PO SCH (08:21)
[2021-03-21] MEDS: lactobacillus rhamnosus 10,000 MMU CELLS/CAPSULE PO SCH ×2 (08:21→19:31)
[2021-03-21] MEDS: tamsulosin 0.4mg capsule PO SCH (08:21)
[2021-03-21] MEDS: K and/or MAG REPLACEMENT MC SCH ×2 (08:21→19:24)
[2021-03-21] MEDS: sacubitril/valsartan 24mg-26mg tablet PO SCH ×2 (08:21→19:31)
[2021-03-21] MEDS: atenolol 25mg tablet PO SCH (08:21)
[2021-03-21] MEDS: fludrocortisone acetate 0.1mg tablet PO SCH (08:21)
[2021-03-21] MEDS: folic acid 1mg tablet PO SCH (08:21)
[2021-03-21] MEDS: azithromycin 250mg tablet PO SCH (08:22)
[2021-03-21] MEDS: thiamine 100mg tablet PO SCH (08:22)
[2021-03-21] MEDS: multivitamins, therapeutics tablet PO SCH (08:22)
[2021-03-21 11:00] VITALS: BP 98/53
[2021-03-21 15:00] VITALS: BP 106/58
[2021-03-21 18:00] VITALS: BP 92/62
--- NOTE | 2021-03-21 18:33 | NUR ---
Patient in room PCU 3012. I have received report from Feliciano HAWKINS and had the opportunity to ask questions and assume patient care. Pt sitting up in bed eating dinner. No signs of distress, will continue to monitor.
[2021-03-21 22:00] VITALS: BP 102/59
[2021-03-22] MEDS: ipratropium/albuterol 3ml nebule NEB SCH ×6 (00:01→19:58)
[2021-03-22] MEDS: temazepam 15mg capsule PO PRN ×2 (00:13→02:20)
[2021-03-22 02:00] VITALS: BP 114/55
[2021-03-22] MEDS: LORazepam 1 MG tablet PO PRN (02:20)
[2021-03-22] MEDS: haloperidol lactate 5mg/ml inj IM PRN (05:59)
[2021-03-22] MEDS ORDERED: diazepam inj 5 MG/ML inj. IM ONE (06:05)
--- NOTE | 2021-03-22 06:35 | NUR ---
Problems reprioritized. Patient report given, questions answered & plan of care reviewed with Ashley HAWKINS.
[2021-03-22 07:00] VITALS: BP 97/53
[2021-03-22] MEDS: sacubitril/valsartan 24mg-26mg tablet PO SCH ×2 (08:00→21:25)
[2021-03-22] MEDS: furosemide 10 MG/1 ML 10ml inj IV SCH ×2 (08:00→21:27)
[2021-03-22] MEDS: K and/or MAG REPLACEMENT MC SCH ×2 (08:00→19:29)
[2021-03-22] MEDS: multivitamins, therapeutics tablet PO SCH (08:00)
[2021-03-22] MEDS: atenolol 25mg tablet PO SCH (08:00)
--- NOTE | 2021-03-22 08:06 | NUR ---
Reassessment: Pt continues on Heart healthy diet w/ mostly 100% intake of meals which meets 100% of est energy needs and 87% of est protein needs. Pt noted to be combative and uncooperative, in restraints, A&O x 2 and confused per physical assessment. Pt documented to need feeder sometimes though independent at others. LBM 03/19. Will continue to monitor. Recommendations: 1) Advance to regular diet with physician approval; Low LDL/HDL though rest of lipid panel WNL 2) Double protein WD 3) Continue routine Thiamine, Folic acid, and MVI for EtOH hx 4) Routine bowel care 5) Scaled weight this admit; weekly scaled weights thereafter Addendum: 03/22/21 at [address] Amended: Links added.
[2021-03-22] MEDS: apixaban 5mg tablet PO SCH ×2 (08:59→21:26)
[2021-03-22] MEDS: methylPREDNISolone sod succ/PF 40mg inj. IV SCH ×2 (08:59→17:16)
[2021-03-22] MEDS: folic acid 1mg tablet PO SCH (08:59)
[2021-03-22] MEDS: thiamine 100mg tablet PO SCH (08:59)
[2021-03-22] MEDS: CefTRIAXone/D5W-Rocephin 1gm 50 ML IV SCH (08:59)
[2021-03-22] MEDS: fludrocortisone acetate 0.1mg tablet PO SCH (09:00)
[2021-03-22] MEDS: pantoprazole 40mg Tablet.DR PO SCH (09:00)
[2021-03-22] MEDS: ferrous sulfate 325mg tablet PO SCH (09:00)
[2021-03-22] MEDS: digoxin 125mcg (0.125mg) tablet PO SCH (09:00)
[2021-03-22] MEDS: lactobacillus rhamnosus 10,000 MMU CELLS/CAPSULE PO SCH ×2 (09:00→21:25)
[2021-03-22] MEDS: azithromycin 250mg tablet PO SCH (09:01)
[2021-03-22] MEDS: tamsulosin 0.4mg capsule PO SCH (09:01)
[2021-03-22] MEDS: HYDROcodone/acetaminophen 10/325mg tab PO PRN ×2 (09:17→14:48)
[2021-03-22 09:49] LABS: BASOPHILS # (AUTO) 0.1 X10'3 (0-0.2); EOSINOPHILS % (AUTO) 0 % (0-6); HEMOGLOBIN 9.4 g/dl (14.0-17.9); MEAN PLATELET VOLUME 8.4 FL (7.4-10.4); PLATELET COUNT 257 X10'3 (140-440)
[2021-03-22] MEDS ORDERED: thiamine tablet PO (09:49)
[2021-03-22] MEDS ORDERED: IPRA3AMP9 NEB (09:49)
[2021-03-22] MEDS ORDERED: PANT40TA54 PO (09:49)
[2021-03-22] MEDS ORDERED: folic acid tablet PO (09:49)
[2021-03-22 09:51] LABS: BASOPHILS % (AUTO) 0.3 % (0-1); LYMPHOCYTES % (AUTO) 41.3 % (21-51); MEAN CORPUSCULAR HGB CONC 32.4 g/dL (33.0-36.5); MEAN CORPUSCULAR VOLUME 89.6 FL (78-98); MONOCYTES # (AUTO) 0.8 X10'3 (0-0.9); MONOCYTES % (AUTO) 3.8 % (2-12); NEUTROPHILS # (AUTO) 11.9 X10'3 (1.8-7.7); NEUTROPHILS % (AUTO) 54.6 % (42-75); RED BLOOD COUNT 3.24 X10'6 (4.70-6.10); RED CELL DISTRIBUTION WIDTH 15.6 % (11.5-14.5); WHITE BLOOD COUNT 21.8 X10'3 (4.5-11.0)
[2021-03-22 09:57] LABS: ALBUMIN 2.9 G/DL (3.4-5.0); ANION GAP 9 (8-16); BLOOD UREA NITROGEN 73 MG/DL (7-18); BUN/CREATININE RATIO 39.5 (5.4-32.0); CALCIUM 7.4 MG/DL (8.5-10.1); CHLORIDE 99 MMOL/L (99-107); CREATININE 1.85 MG/DL (0.60-1.10); GLUCOSE 219 MG/DL (70-104); POTASSIUM 4.2 MMOL/L (3.5-5.1); SODIUM 138 MMOL/L (135-145); TOTAL CARBON DIOXIDE 30.5 MMOL/L (24-32); eGFR 37 ML/MIN
[2021-03-22 11:00] VITALS: BP 97/61
[2021-03-22 15:00] VITALS: BP 88/45
[2021-03-22 18:00] VITALS: BP 122/59
--- NOTE | 2021-03-22 18:14 | NUR ---
Problems reprioritized. Patient report given, questions answered & plan of care reviewed with Doris RN.
[2021-03-22 22:00] VITALS: BP 117/77
[2021-03-23] MEDS: ipratropium/albuterol 3ml nebule NEB SCH ×7 (00:18→23:38)
[2021-03-23] MEDS: HYDROcodone/acetaminophen 5mg/325mg tablet PO PRN (03:53)
--- NOTE | 2021-03-23 05:00 | NUR ---
Restless most of the shift, trying to get out of bed. He is pleasant when spoken to but constantly trying to get up. Snacks provided. Medicated once for pain. Condom catheter applied, he pulled it off once (re-applied). Sitter remains at bedside
[2021-03-23 06:00] VITALS: BP 100/54
--- NOTE | 2021-03-23 06:00 | NUR ---
Patient in room PCU 3012. I have received report from Doris HAWKINS and had the opportunity to ask questions and assume patient care.
[2021-03-23 07:00] VITALS: BP 104/55
--- NOTE | 2021-03-23 07:00 | NUR ---
Change of shift report given to Mattie HAWKINS Addendum: 03/23/21 at 0710 by Doris Blevins RN Amended: Links added.
[2021-03-23] MEDS: K and/or MAG REPLACEMENT MC SCH ×2 (08:00→20:00)
[2021-03-23] MEDS: furosemide 10 MG/1 ML 10ml inj IV SCH ×2 (08:00→20:13)
--- NOTE | 2021-03-23 08:00 | NUR ---
pt positioned for breakfast, restraints off so pt can eat, pt appears oriented and appropriate, condom catheter remains in place. alert and oriented x 4
--- NOTE | 2021-03-23 09:00 | NUR ---
patient positioned on bedpan for small bowel movement.
[2021-03-23] MEDS: CefTRIAXone/D5W-Rocephin 1gm 50 ML IV SCH (09:07)
[2021-03-23] MEDS: predniSONE 20 mg tablet PO SCH (09:11)
[2021-03-23] MEDS: sacubitril/valsartan 24mg-26mg tablet PO SCH ×2 (09:11→20:13)
[2021-03-23] MEDS: fludrocortisone acetate 0.1mg tablet PO SCH (09:12)
[2021-03-23] MEDS: pantoprazole 40mg Tablet.DR PO SCH (09:12)
[2021-03-23] MEDS: thiamine 100mg tablet PO SCH (09:12)
[2021-03-23] MEDS: multivitamins, therapeutics tablet PO SCH (09:12)
[2021-03-23] MEDS: tamsulosin 0.4mg capsule PO SCH (09:12)
[2021-03-23] MEDS: apixaban 5mg tablet PO SCH ×2 (09:12→20:13)
[2021-03-23] MEDS: folic acid 1mg tablet PO SCH (09:12)
[2021-03-23] MEDS: digoxin 125mcg (0.125mg) tablet PO SCH (09:13)
[2021-03-23] MEDS: lactobacillus rhamnosus 10,000 MMU CELLS/CAPSULE PO SCH ×2 (09:13→20:14)
[2021-03-23] MEDS: ferrous sulfate 325mg tablet PO SCH (09:13)
[2021-03-23] MEDS: atenolol 25mg tablet PO SCH (09:14)
[2021-03-23 11:00] VITALS: BP 103/66
[2021-03-23] MEDS: HYDROcodone/acetaminophen 10/325mg tab PO PRN ×2 (17:10→21:25)
[2021-03-23 18:00] VITALS: BP 114/52
[2021-03-23] MEDS: temazepam 15mg capsule PO PRN (21:20)
[2021-03-23 22:00] VITALS: BP 103/54
[2021-03-24 02:00] VITALS: BP 117/86
[2021-03-24] MEDS: HYDROcodone/acetaminophen 10/325mg tab PO PRN (02:04)
[2021-03-24] MEDS: LORazepam 1 MG tablet PO PRN (02:05)
[2021-03-24] MEDS: ipratropium/albuterol 3ml nebule NEB SCH ×6 (03:32→23:47)
[2021-03-24 06:00] VITALS: BP 80/51
--- NOTE | 2021-03-24 06:48 | NUR ---
Problems reprioritized. Patient report given, questions answered & plan of care reviewed with Khushbu HAWKINS . Patient resting in bed in no acute distre
--- NOTE | 2021-03-24 06:54 | NUR ---
Patient in room PCU 3012. I have received report from Isis HAWKINS and had the opportunity to ask questions and assume patient care.
[2021-03-24] MEDS: sacubitril/valsartan 24mg-26mg tablet PO SCH ×2 (08:00→21:00)
[2021-03-24] MEDS: atenolol 25mg tablet PO SCH (08:00)
[2021-03-24] MEDS: furosemide 10 MG/1 ML 10ml inj IV SCH (08:00)
[2021-03-24] MEDS: K and/or MAG REPLACEMENT MC SCH ×2 (08:00→20:00)
[2021-03-24] MEDS: fludrocortisone acetate 0.1mg tablet PO SCH (08:44)
[2021-03-24] MEDS: predniSONE 20 mg tablet PO SCH (08:44)
[2021-03-24] MEDS: multivitamins, therapeutics tablet PO SCH (08:44)
[2021-03-24] MEDS: lactobacillus rhamnosus 10,000 MMU CELLS/CAPSULE PO SCH ×2 (08:44→21:00)
[2021-03-24] MEDS: thiamine 100mg tablet PO SCH (08:44)
[2021-03-24] MEDS: digoxin 125mcg (0.125mg) tablet PO SCH (08:44)
[2021-03-24] MEDS: apixaban 5mg tablet PO SCH ×2 (08:45→21:00)
[2021-03-24] MEDS: tamsulosin 0.4mg capsule PO SCH (08:45)
[2021-03-24] MEDS: ferrous sulfate 325mg tablet PO SCH (08:45)
[2021-03-24] MEDS: folic acid 1mg tablet PO SCH (08:45)
[2021-03-24] MEDS: pantoprazole 40mg Tablet.DR PO SCH (08:45)
[2021-03-24] MEDS: CefTRIAXone/D5W-Rocephin 1gm 50 ML IV SCH (08:54)
[2021-03-24 10:51] LABS: BASOPHILS % (AUTO) 0.1 % (0-1); EOSINOPHILS # (AUTO) 0.1 X10'3 (0-0.9); EOSINOPHILS % (AUTO) 0.6 % (0-6); HEMATOCRIT 31.4 % (42.0-52.0); HEMOGLOBIN 10.1 g/dl (14.0-17.9); LYMPHOCYTES # (AUTO) 8.3 X10'3 (1.1-4.8); LYMPHOCYTES % (AUTO) 43.5 % (21-51); MEAN CORPUSCULAR HEMOGLOBIN 29.2 PG (27.0-31.0); MEAN CORPUSCULAR VOLUME 91.3 FL (78-98); MONOCYTES # (AUTO) 1.4 X10'3 (0-0.9); MONOCYTES % (AUTO) 7.4 % (2-12); NEUTROPHILS # (AUTO) 9.3 X10'3 (1.8-7.7); NEUTROPHILS % (AUTO) 48.4 % (42-75); PLATELET COUNT 287 X10'3 (140-440); RED BLOOD COUNT 3.44 X10'6 (4.70-6.10); RED CELL DISTRIBUTION WIDTH 16.3 % (11.5-14.5); WHITE BLOOD COUNT 19.1 X10'3 (4.5-11.0)
[2021-03-24 11:00] VITALS: BP 97/42
[2021-03-24 11:05] LABS: ALBUMIN 2.9 G/DL (3.4-5.0); ANION GAP 5 (8-16); BLOOD UREA NITROGEN 61 MG/DL (7-18); BUN/CREATININE RATIO 42.1 (5.4-32.0); CALCIUM 7.6 MG/DL (8.5-10.1); CHLORIDE 101 MMOL/L (99-107); CREATININE 1.45 MG/DL (0.60-1.10); GLUCOSE 120 MG/DL (70-104); POTASSIUM 4.2 MMOL/L (3.5-5.1); SODIUM 140 MMOL/L (135-145); TOTAL CARBON DIOXIDE 33.8 MMOL/L (24-32); eGFR 49 ML/MIN
[2021-03-24 15:00] VITALS: BP 100/49
[2021-03-24] MEDS: acetaminophen 325mg tablet PO PRN (15:15)
[2021-03-24 18:00] VITALS: BP 116/54
--- NOTE | 2021-03-24 18:28 | NUR ---
Problems reprioritized. Patient report given, questions answered & plan of care reviewed with Isis HAWKINS.
[2021-03-24 22:00] VITALS: BP 114/78
[2021-03-25] MEDS: LORazepam 1 MG tablet PO PRN (01:02)
[2021-03-25 02:00] VITALS: BP 112/56
[2021-03-25] MEDS: ipratropium/albuterol 3ml nebule NEB SCH ×3 (02:59→12:00)
[2021-03-25 06:00] VITALS: BP 129/83
--- NOTE | 2021-03-25 06:26 | NUR ---
Problems reprioritized. Patient report given, ROSS Arreola, questions answered & plan of care reviewed with .Pt. is stable, slept very little , sitter remains at bedside.
[2021-03-25] MEDS: apixaban 5mg tablet PO SCH (07:49)
[2021-03-25] MEDS: multivitamins, therapeutics tablet PO SCH (07:49)
[2021-03-25] MEDS: pantoprazole 40mg Tablet.DR PO SCH (07:49)
[2021-03-25] MEDS: lactobacillus rhamnosus 10,000 MMU CELLS/CAPSULE PO SCH (07:49)
[2021-03-25] MEDS: folic acid 1mg tablet PO SCH (07:49)
[2021-03-25] MEDS: ferrous sulfate 325mg tablet PO SCH (07:49)
[2021-03-25] MEDS: tamsulosin 0.4mg capsule PO SCH (07:49)
[2021-03-25] MEDS: CefTRIAXone/D5W-Rocephin 1gm 50 ML IV SCH (07:49)
[2021-03-25] MEDS: thiamine 100mg tablet PO SCH (07:49)
[2021-03-25] MEDS: sacubitril/valsartan 24mg-26mg tablet PO SCH (07:50)
[2021-03-25] MEDS: digoxin 125mcg (0.125mg) tablet PO SCH (07:50)
[2021-03-25] MEDS: acetaminophen 325mg tablet PO PRN (07:50)
[2021-03-25] MEDS: atenolol 25mg tablet PO SCH (07:51)
[2021-03-25] MEDS: fludrocortisone acetate 0.1mg tablet PO SCH (07:59)
[2021-03-25] MEDS: K and/or MAG REPLACEMENT MC SCH (08:00)
[2021-03-25 11:00] VITALS: BP 92/51
[2021-03-25] MEDS ORDERED: FURO-150 PO (11:53)
[2021-03-25] MEDS ORDERED: POTA10TA37 PO (11:53)
--- NOTE | 2021-03-25 14:00 | NUR ---
discharge instructions were given and explained to patient prior to discharge. iv access discontinued with cannula tip and intact.
== END 2021-03-25 15:10 | disposition home or self-care (01) | DRG 871 ==
LOC: ER 01:02 → ED HOLD 03:13 → PCU 3S 03-14 01:08
PROVIDERS: ADMIT Family Medicine; ATTEND Family Medicine
PROC: 5A09357 Assistance with Respiratory Ventilation, Less than 24 Consecutive Hours, Continuous Positive Airway Pressure (ICD-10-PCS; principal; 2021-03-13)
PROC: 5A09357 Assistance with Respiratory Ventilation, Less than 24 Consecutive Hours, Continuous Positive Airway Pressure (ICD-10-PCS; 2021-03-14)
PROC: 5A09357 Assistance with Respiratory Ventilation, Less than 24 Consecutive Hours, Continuous Positive Airway Pressure (ICD-10-PCS; 2021-03-15)
PROC: 5A09357 Assistance with Respiratory Ventilation, Less than 24 Consecutive Hours, Continuous Positive Airway Pressure (ICD-10-PCS; 2021-03-16)
DX: A41.9 Sepsis, unspecified organism (principal); I50.43 Acute on chronic combined systolic (congestive) and diastolic (congestive) heart failure; J18.9 Pneumonia, unspecified organism; J96.01 Acute respiratory failure with hypoxia; G93.41 Metabolic encephalopathy; I13.0 Hypertensive heart and chronic kidney disease with heart failure and stage 1 through stage 4 chronic kidney disease, or unspecified chronic kidney disease; E87.2 Acidosis; F10.231 Alcohol dependence with withdrawal delirium; I48.20 Chronic atrial fibrillation, unspecified; J44.0 Chronic obstructive pulmonary disease with (acute) lower respiratory infection; J44.1 Chronic obstructive pulmonary disease with (acute) exacerbation; N17.9 Acute kidney failure, unspecified; Z68.45 Body mass index [BMI] 70 or greater, adult; Z20.822 Contact with and (suspected) exposure to COVID-19; N40.0 Benign prostatic hyperplasia without lower urinary tract symptoms; D64.9 Anemia, unspecified; E66.01 Morbid (severe) obesity due to excess calories; F10.229 Alcohol dependence with intoxication, unspecified; I95.9 Hypotension, unspecified; F17.210 Nicotine dependence, cigarettes, uncomplicated; G89.29 Other chronic pain; F41.9 Anxiety disorder, unspecified; G43.909 Migraine, unspecified, not intractable, without status migrainosus; M54.9 Dorsalgia, unspecified; I27.29 Other secondary pulmonary hypertension; I27.81 Cor pulmonale (chronic); J20.9 Acute bronchitis, unspecified; N18.9 Chronic kidney disease, unspecified; Z78.1 Physical restraint status; Z79.01 Long term (current) use of anticoagulants; Z79.899 Other long term (current) drug therapy; Z82.49 Family history of ischemic heart disease and other diseases of the circulatory system
CPT/HCPCS: 36415; 36600; 70450; 71045; 80048; 80053; 80061; 80162; 82803; 82948; 83036; 83605; 83735; 83880; 84100; 84439; 84443; 84484; 85018; 85025; 85379; 85610; 85730; 87040; 87081; 87635; 93005; 93308; 94640; 94660; 94760; 97110; 97162; 97530; 99291; C9803; G0378; J0456; J0696; J1630; J1940; J2060; J2270; J2920; J2930; J3360; J3411; J3486; J3490; J7512; J7614; P9047

== ENCOUNTER 2021-05-17 00:50 | Emergency (ER) | payer BC, MEDICAID ==
[~2021-05-17] VITALS: Ht 193 cm; Wt 98.9 kg
[~2021-05-17 00:50] MED LIST changes: -FLO0.1T PO; +FLUD0.1T PO; +FURO-150 PO; +IPRA3AMP9 NEB; +PANT40TA54 PO; +POTA10TA37 PO; +SACU1TAB PO; +folic acid tablet PO; +thiamine tablet PO
--- NOTE | 2021-05-17 01:30 | NUR ---
Pt presents to the ed tx area with c/o multiple symptoms, ranging from lower back pain to weakness; the pt states he takes several medications, which are with his ; the pt is a poor historian; he's a/o, nad, skin p/w/d; will ctm
--- NOTE | 2021-05-17 02:00 | NUR ---
PATIENT SENT TO XRAY
--- NOTE | 2021-05-17 02:00 | NUR ---
PATIENT GIVEN A URINAL AWAITNG SAMPLE
--- NOTE | 2021-05-17 02:05 | NUR ---
pt off to ct
--- NOTE | 2021-05-17 02:14 | NUR ---
urine collected and sent
[2021-05-17 02:16] LABS: BASOPHILS # (AUTO) 0.1 X10'3 (0-0.2); LYMPHOCYTES # (AUTO) 3.1 X10'3 (1.1-4.8); MEAN CORPUSCULAR VOLUME 88.8 FL (78-98); MONOCYTES % (AUTO) 8.3 % (2-12)
[2021-05-17 02:18] LABS: EOSINOPHILS # (AUTO) 0.7 X10'3 (0-0.9); EOSINOPHILS % (AUTO) 7.1 % (0-6); HEMATOCRIT 43.4 % (42.0-52.0); HEMOGLOBIN 14.3 g/dl (14.0-17.9); LYMPHOCYTES % (AUTO) 33.7 % (21-51); MEAN CORPUSCULAR HEMOGLOBIN 29.4 PG (27.0-31.0); MEAN CORPUSCULAR HGB CONC 33.1 g/dL (33.0-36.5); MEAN PLATELET VOLUME 8.4 FL (7.4-10.4); MONOCYTES # (AUTO) 0.8 X10'3 (0-0.9); NEUTROPHILS # (AUTO) 4.6 X10'3 (1.8-7.7); NEUTROPHILS % (AUTO) 49.9 % (42-75); PLATELET COUNT 207 X10'3 (140-440); RED BLOOD COUNT 4.89 X10'6 (4.70-6.10); RED CELL DISTRIBUTION WIDTH 14.9 % (11.5-14.5); WHITE BLOOD COUNT 9.2 X10'3 (4.5-11.0)
[2021-05-17 02:26] LABS: ALANINE AMINOTRANSFERASE 14 U/L (12-78); ALBUMIN 3.8 G/DL (3.4-5.0); ALBUMIN/GLOBULIN RATIO 1.4 (1.1-1.5); ALKALINE PHOSPHATASE 132 IU/L (46-116); ANION GAP 10 (8-16); ASPARTATE AMINO TRANSFERASE 35 U/L (10-37); BILIRUBIN,TOTAL 0.7 MG/DL (0.1-1.0); BLOOD UREA NITROGEN 30 MG/DL (7-18); BUN/CREATININE RATIO 20.1 (5.4-32.0); CALCIUM 9.6 MG/DL (8.5-10.1); CHLORIDE 100 MMOL/L (99-107); CREATININE 1.49 MG/DL (0.60-1.10); GLUCOSE 77 MG/DL (70-104); POTASSIUM 4.1 MMOL/L (3.5-5.1); SODIUM 139 MMOL/L (135-145); TOTAL CARBON DIOXIDE 28.7 MMOL/L (24-32); TOTAL PROTEIN 6.5 G/DL (6.4-8.2); eGFR 47 ML/MIN
[2021-05-17 02:29] LABS: CLARITY,URINE CLEAR (Clear); COLOR,URINE YELLOW (Yellow); GLUCOSE, URINE NEGATIVE (Neg); KETONES,URINE NEGATIVE (Neg); LEUKOCYTE ESTERASE ,URINE NEGATIVE (Neg); NITRITES, URINE NEGATIVE (Neg); OCCULT BLOOD,URINE NEGATIVE (Neg); PROTEIN,URINE NEGATIVE (Neg); UROBILINOGEN,URINE 0.2 E.U/dL (0.2-1.0)
[2021-05-17 02:36] LABS: UA COLLECTION TYPE NON-SPECIFIED; URINE AMPHETAMINE SCREEN POSITIVE (Neg); URINE BARBITUATE SCREEN NEGATIVE (Neg); URINE BENZODIAZEPINES SCREEN NEGATIVE (Neg); URINE CANNABINOID SCREEN NEGATIVE (Neg); URINE COCAINE SCREEN NEGATIVE (Neg); URINE METHADONE SCREEN NEGATIVE (Neg); URINE OPIATE SCREEN NEGATIVE (Neg); URINE PHENCYCLIDINE SCREEN NEGATIVE (Neg)
[2021-05-17 02:37] LABS: ETHANOL < 0.010 GM/DL (0.0-0.010)
[2021-05-17 03:44] VITALS: BP 114/66
[2021-05-17 06:50] LABS: PLATELET ESTIMATE NORMAL; SMUDGE CELLS 1+; TOTAL CELLS COUNTED 100
== END 2021-05-17 03:50 | disposition home or self-care (01) ==
LOC: ER 00:50
DX: R44.1 Visual hallucinations (principal); G43.909 Migraine, unspecified, not intractable, without status migrainosus; I48.91 Unspecified atrial fibrillation; I11.0 Hypertensive heart disease with heart failure; I50.9 Heart failure, unspecified; G89.29 Other chronic pain; F41.9 Anxiety disorder, unspecified; F17.200 Nicotine dependence, unspecified, uncomplicated; F12.90 Cannabis use, unspecified, uncomplicated; Z86.2 Personal history of diseases of the blood and blood-forming organs and certain disorders involving the immune mechanism; Z87.440 Personal history of urinary (tract) infections; Z85.9 Personal history of malignant neoplasm, unspecified; Z98.890 Other specified postprocedural states; Z72.89 Other problems related to lifestyle; Z79.899 Other long term (current) drug therapy
CPT/HCPCS: 36415; 70450; 80053; 80305; 80320; 81003; 82140; 84443; 85007; 85025; 85610; 99284

== ENCOUNTER 2021-05-23 13:52 | Inpatient (IN) | payer BC, MEDICAID ==
[~2021-05-23] VITALS: Ht 185.4 cm; Wt 100.9 kg
[2021-05-23 15:11] LABS: BASOPHILS # (AUTO) 0.1 X10'3 (0-0.2); BASOPHILS % (AUTO) 1.1 % (0-1); EOSINOPHILS # (AUTO) 0.5 X10'3 (0-0.9); EOSINOPHILS % (AUTO) 7.7 % (0-6); HEMATOCRIT 41.8 % (42.0-52.0); HEMOGLOBIN 13.6 g/dl (14.0-17.9); LYMPHOCYTES # (AUTO) 2.4 X10'3 (1.1-4.8); LYMPHOCYTES % (AUTO) 34.7 % (21-51); MEAN CORPUSCULAR HEMOGLOBIN 28.9 PG (27.0-31.0); MEAN CORPUSCULAR HGB CONC 32.6 g/dL (33.0-36.5); MEAN CORPUSCULAR VOLUME 88.7 FL (78-98); MEAN PLATELET VOLUME 8.3 FL (7.4-10.4); MONOCYTES # (AUTO) 0.5 X10'3 (0-0.9); MONOCYTES % (AUTO) 7.6 % (2-12); NEUTROPHILS # (AUTO) 3.3 X10'3 (1.8-7.7); NEUTROPHILS % (AUTO) 48.9 % (42-75); PLATELET COUNT 245 X10'3 (140-440); RED BLOOD COUNT 4.72 X10'6 (4.70-6.10); RED CELL DISTRIBUTION WIDTH 14.9 % (11.5-14.5); WHITE BLOOD COUNT 6.8 X10'3 (4.5-11.0)
[2021-05-23 15:30] LABS: ALANINE AMINOTRANSFERASE 22 U/L (12-78); ALBUMIN 3.6 G/DL (3.4-5.0); ALBUMIN/GLOBULIN RATIO 1.3 (1.1-1.5); ALKALINE PHOSPHATASE 138 IU/L (46-116); ANION GAP 11 (8-16); ASPARTATE AMINO TRANSFERASE 35 U/L (10-37); BILIRUBIN,TOTAL 0.6 MG/DL (0.1-1.0); BLOOD UREA NITROGEN 42 MG/DL (7-18); BUN/CREATININE RATIO 26.9 (5.4-32.0); CALCIUM 9.4 MG/DL (8.5-10.1); CHLORIDE 104 MMOL/L (99-107); CREATININE 1.56 MG/DL (0.60-1.10); GLUCOSE 88 MG/DL (70-104); POTASSIUM 4.2 MMOL/L (3.5-5.1); SODIUM 141 MMOL/L (135-145); TOTAL CARBON DIOXIDE 25.9 MMOL/L (24-32); TOTAL PROTEIN 6.4 G/DL (6.4-8.2); eGFR 45 ML/MIN
[2021-05-23] MEDS ORDERED: normal saline 1000ml 1,000 ML IV ONE (23:30)
[2021-05-24] VITALS (18 sets, daily range): BP systolic 81–103; BP diastolic 39–76
[2021-05-24 00:04] LABS: ETHANOL < 0.010 GM/DL (0.0-0.010); MAGNESIUM 2.2 MG/DL (1.5-2.4)
[2021-05-24] MEDS ORDERED: metoprolol tartrate 1mg/ml inj IV ONE (00:05)
[2021-05-24] MEDS ORDERED: normal saline 1000ml 1,000 ML IV ONE ×2 (00:55→18:35)
[2021-05-24 01:16] LABS: URINE AMPHETAMINE SCREEN POSITIVE (Neg); URINE BARBITUATE SCREEN NEGATIVE (Neg); URINE BENZODIAZEPINES SCREEN NEGATIVE (Neg); URINE CANNABINOID SCREEN POSITIVE (Neg); URINE COCAINE SCREEN NEGATIVE (Neg); URINE METHADONE SCREEN NEGATIVE (Neg); URINE OPIATE SCREEN NEGATIVE (Neg); URINE PHENCYCLIDINE SCREEN NEGATIVE (Neg)
[2021-05-24 01:19] LABS: CLARITY,URINE CLEAR (Clear); GLUCOSE, URINE NEGATIVE (Neg); KETONES,URINE NEGATIVE (Neg); LEUKOCYTE ESTERASE ,URINE NEGATIVE (Neg); NITRITES, URINE NEGATIVE (Neg); OCCULT BLOOD,URINE NEGATIVE (Neg); PH,URINE 5.5 (4.8-8.0); PROTEIN,URINE TRACE mg/dl (Neg); UROBILINOGEN,URINE 0.2 E.U/dL (0.2-1.0)
[2021-05-24 01:25] LABS: COLOR,URINE DARK YELLOW (Yellow); UA COLLECTION TYPE STRAIGHT CATH
[2021-05-24 01:26] LABS: HYALINE CASTS >30 /LPF (NEGATIVE)
[2021-05-24 01:27] LABS: BACTERIA,URINE NONE SEEN /HPF (Neg); MUCUS STRANDS FEW /LPF (Neg); RBC,URINE NONE SEEN /HPF (0-2); SQUAMOUS EPITHELIAL CELL,UR NONE SEEN /LPF (FEW); TRANSITIONAL EPI CELLS,URINE FEW /HPF; WBC,URINE 0-4 /HPF (0-4)
[2021-05-24 01:28] LABS: CAL OXALATE CRYSTALS FEW /HPF (NEGATIVE); RENAL CELLS, URINE FEW /HPF
[2021-05-24] MEDS ORDERED: amiodarone/D5 360MG/200ML BAG 200 ML IV ONE (01:40)
[2021-05-24] MEDS ORDERED: thiamine 100mg/ml 2ml inj. IV ONE (01:45)
[2021-05-24] MEDS ORDERED: diazepam inj 5 MG/ML inj. IV ONE (01:45)
[2021-05-24 02:22] LABS: ABG BASE EXCESS -3.5 mmol/L (-2.0-2.0); ABG HCO3 20.9 mmol/L (22.0-26.0); ABG OXYGEN SATURATION 93.8 % (94-97); ABG PO2 (T) 72.4 mmHg (75.0-100.0); ALLEN'S TEST POSITIVE; FCOHb 0.7 % (0.0-3.9); FMetHb 0.2 % (0.0-1.5); PATIENT TEMPERATURE 37.1; TOTAL HEMOGLOBIN 13.5 G/dl (14.0-18.0)
[2021-05-24] MEDS ORDERED: LORazepam 2 mg/ml vial IV PRN (03:15)
[2021-05-24] MEDS ORDERED: acetaminophen 325mg rectal suppository RC PRN (03:15)
[2021-05-24] MEDS ORDERED: famotidine/PF 10 mg/ml inj IV ONE (03:18)
[2021-05-24] MEDS ORDERED: furosemide 20 MG/2 ML vial IV ONE ×2 (03:20→07:00)
[2021-05-24] MEDS ORDERED: thiamine inj. 100 MG in normal saline 100ml IV soln 100 ML IV ONE (03:22)
[2021-05-24] MEDS ORDERED: acetaminophen 650mg rectal suppository RC PRN (03:33)
[2021-05-24] MEDS ORDERED: dexmedetomidin/NS 400mcg/100ml 100 ML IV SCH (04:25)
[2021-05-24] MEDS ORDERED: dexmedetomidine/D5W 100mL 100 ML IV SCH (04:35)
[2021-05-24] MEDS ORDERED: LIDOcaine 2% 10ml TOPICAL JELLY (Urojet) TP ONE (05:50)
[2021-05-24] MEDS: amiodarone/D5 360MG/200ML BAG 200 ML IV SCH ×4 (05:51→20:57)
[2021-05-24] MEDS ORDERED: dextrose 50%-water 50ml dispensing syringe IV PRN ×2 (07:45)
[2021-05-24] MEDS ORDERED: DEXTROSE 15 GM of carb/4 tabs (each vial/BOTTLE has 4 tablets) PO PRN ×2 (07:45)
[2021-05-24] MEDS ORDERED: glucagon, human recombinant 1mg kit SUBCUT PRN (07:45)
[2021-05-24] MEDS ORDERED: apixaban 2.5mg tablet PO SCH (08:00)
[2021-05-24 08:11] LABS: BASOPHILS % (AUTO) 0.7 % (0-1); EOSINOPHILS # (AUTO) 0.4 X10'3 (0-0.9); HEMATOCRIT 39.9 % (42.0-52.0); HEMOGLOBIN 12.9 g/dl (14.0-17.9); LYMPHOCYTES # (AUTO) 1.7 X10'3 (1.1-4.8); MEAN CORPUSCULAR HEMOGLOBIN 28.9 PG (27.0-31.0); MEAN CORPUSCULAR HGB CONC 32.4 g/dL (33.0-36.5); MEAN CORPUSCULAR VOLUME 89.1 FL (78-98); MEAN PLATELET VOLUME 8.2 FL (7.4-10.4); MONOCYTES # (AUTO) 0.5 X10'3 (0-0.9); NEUTROPHILS # (AUTO) 2.5 X10'3 (1.8-7.7); NEUTROPHILS % (AUTO) 49.3 % (42-75); PLATELET COUNT 179 X10'3 (140-440); RED BLOOD COUNT 4.47 X10'6 (4.70-6.10); RED CELL DISTRIBUTION WIDTH 14.9 % (11.5-14.5); WHITE BLOOD COUNT 5.1 X10'3 (4.5-11.0)
[2021-05-24 08:29] LABS: ALBUMIN 2.9 G/DL (3.4-5.0); ANION GAP 6 (8-16); BLOOD UREA NITROGEN 44 MG/DL (7-18); BUN/CREATININE RATIO 28.6 (5.4-32.0); CALCIUM 8.4 MG/DL (8.5-10.1); CHLORIDE 108 MMOL/L (99-107); CREATININE 1.54 MG/DL (0.60-1.10); GLUCOSE 68 MG/DL (70-104); POTASSIUM 3.8 MMOL/L (3.5-5.1); SODIUM 138 MMOL/L (135-145); TOTAL CARBON DIOXIDE 23.8 MMOL/L (24-32); eGFR 45 ML/MIN
--- NOTE | 2021-05-24 11:24 | NUR ---
TF consult: Pt admitted w/ AMS, possibly related to EtOH/meth abuse, has reports of A/V hallucinations per EMR. Pt remains A&O x 0 and has an NGT per RN, TF to start today per Activities Officer as pt is unsafe for PO. See recs below. Noted pt w/ 12.8% wt loss in ~4 months per EMR records though pt w/ no visible signs of muscle or fat wasting observed at bedside and no edema present. Will continue to monitor. Recs: 1) Continuous TF per MD using Jevity 1.2 at 85ml/hr goal to provide 2040ml volume 2448kcals, 113g protein, 1646ml free water 2) Additional water flush 150 Q4H; monitor serum Na 3) PALB Q / 4) Routine bowel care 5) Daily wts Addendum: 05/24/21 at [address] Amended: Links added.
[2021-05-24] MEDS ORDERED: haloperidol lactate 5mg/ml inj IM PRN (11:40)
[2021-05-24] MEDS ORDERED: haloperidol 5mg tablet PO PRN (11:40)
[2021-05-24] MEDS: folic acid 1mg tablet PO SCH (15:19)
[2021-05-24] MEDS: multivitamins, therapeutics tablet PO SCH (15:19)
[2021-05-24] MEDS: thiamine 100mg tablet PO SCH (15:19)
[2021-05-24] MEDS: lansoprazole 15mg solutab NG SCH (15:19)
[2021-05-24] MEDS: QUEtiapine 25mg tablet PO PRN ×2 (15:19→23:41)
[2021-05-24] MEDS: dextrose 5%-water 1,000 ML IV SCH ×2 (15:20→23:08)
[2021-05-24] MEDS: apixaban 5mg tablet PO SCH (19:05)
[2021-05-24] MEDS: LORazepam 2 mg/ml vial IV PRN ×3 (19:05→23:41)
--- NOTE | 2021-05-24 21:00 | NUR ---
LATE ENTRY ADMISSION NOTE: pt admitted to ICU 05/24/2021 0500 Patient is a 65 year-old male, admitted 05/24/2021, full code, NDA, Bilateral soft wrist restraints. orders and documentation in accordance with facility policies and procedures. This patient presents to the ED, 05/23/2021, with confusion for an unknown amount of time. Per triage notes, the patient was dropped off by his after consulting their primary care provider about his symptoms. Per triage note, he believed it was 2027 and he was the president. However, upon examination, he knew his name and the year and location. The patient was complaining about left leg pain, which he stated has been going on for months. The patient was able to tell us he has atrial fibrillation. HPI is limited due to patient's altered mental status. HPI was obtained through triage notes and from the patient's limited history. The patient's spouse did note reporting that he has discontinued his alcohol use has had increasing confusion and reports of psychosis as well as auditory visual hallucinations. Upon admission to ICU, at 0500, pt is combative requiring bilateral soft wrist restraints and bilateral knee immobilizers to prevent him from kicking again. Pt is immediately started on Precedex at rate 1.4 mcgs and titrating down to proper sedation. Effective in 20 minutes. Still confused and attempting to pull at lines. HR 110-130 AF, Amiodarone 1 mg/min started immediately, rate controlled. IVF infusing via #20 RW, #20 LAC started in ICU. Afebrile, moves all extremities, does not follow commands. RR 30, PO 98% 3 L NC. Breath sounds, coarse, diminished, equal symmetrical. Bowel sounds, hypoactive, soft, non tender, non distended, NPO, no BM. Sims placed in ICU, draining nicole yellow urine. Skin intact, BLLE red, cellulitis noted on left calf. MRSA screen obtained sent to lab. Pt remains safe, continue to monitor.
[2021-05-25] VITALS (24 sets, daily range): BP systolic 79–119; BP diastolic 36–78
--- NOTE | 2021-05-25 00:53 | NUR ---
Patient is a 65 year-old male, admitted 05/24/2021, almost 24 hours of admission, full code, NDA, Bilateral soft wrist restraints. orders and documentation in accordance with facility policies and procedures. This patient presents to the ED, 05/23/2021, with confusion for an unknown amount of time. Per triage notes, the patient was dropped off by his after consulting their primary care provider about his symptoms. Per triage note, he believed it was 2027 and he was the president. However, upon examination, he knew his name and the year and location. The patient was complaining about left leg pain, which he stated has been going on for months. The patient was able to tell us he has atrial fibrillation. HPI is limited due to patient's altered mental status. HPI was obtained through triage notes and from the patient's limited history. The patient's spouse did note reporting that he has discontinued his alcohol use has had increasing confusion and reports of psychosis as well as auditory visual hallucinations. Currently, pt remains restless at times and combative requiring bilateral soft wrist restraints. Bilateral knee immobilizers removed. CIWA protocol started on day shift. Pt has available, Ativan IV PRN, Q1 hour. And Seroquel PRN Q6 hours. Pt is currently receiving Ativan 2 mg IV Q2 hours or greater. Remains confused and attempting to pull at lines. HR 70-90's AF, Amiodarone infusing at .5 mg/min, HR is controlled. IVF infusing via #20 RW. +3 BLLE edema and hands have +2 edema. Pt is receiving Eliquis for AFIB. Afebrile, moves all extremities, does not follow commands. RR 20-30, PO 98% 3 L NC. Breath sounds, coarse, diminished, equal symmetrical. Bowel sounds, hypoactive, soft, non tender, non distended. Tube feeding, Jevity 1.2 infusing at 35 ml/hr., via left nare NGT. placement checked and monitored. Pt was started on D5 at 100 ml's/hr for hypoglycemic episode on day shift. Currently Glucose is 95, checking Glucose Q 6 hours. Receiving Prevacid for GI prophylaxis. No BM. Bladder non distended, Sims draining nicole yellow urine. Skin, red, right [place] with a small skin tear, and left calf, what appears to be a pressure wound non stageable and not present on admission, Mepilex applied to both areas. BLLE red, cellulitis noted on left lower leg. Pt is turned Q 2 hours and readjusted frequently. Pt's was up dated, Pt remains safe, continue to monitor. Addendum: 05/25/21 at 0317 by Roque Blevins RN 0230 pt BP labile, called Dr Dong, ordered albumin. BP 91/45 then slowly came down to 80's/ Called Dr Dong ordered Phenylephrine low dose for BP support. Addendum: 05/25/21 at 0401 by Roque Blevins RN 033 PHENYLEPHERINE started, Monitor VS q15 min till desired SBP 100 obtained Addendum: 05/25/21 at 0534 by Roque Brown - Felicity HAWKINS 0430 made rounds, ordered NS 500ml's bolus. Pt was started on Eliquis last night, noted Mild hematuria noted in Sims this morning.
[2021-05-25] MEDS ORDERED: albumin (human) 25% 100 ML IV solution IV ONE (02:10)
[2021-05-25] MEDS ORDERED: PHENYLephrine 10mg/ml inj. 100 MG in normal saline 250ml IV soln 240 ML IV SCH (03:10)
[2021-05-25] MEDS ORDERED: normal saline 500ml IV soln 500 ML IV ONE (04:40)
[2021-05-25] MEDS: amiodarone/D5 360MG/200ML BAG 200 ML IV SCH ×2 (06:00→12:05)
--- NOTE | 2021-05-25 06:30 | NUR ---
Patient in room ICU 2042. I have received report from aftab and had the opportunity to ask questions and assume patient care.
[2021-05-25 07:24] LABS: BASOPHILS # (AUTO) 0.1 X10'3 (0-0.2); EOSINOPHILS # (AUTO) 0.3 X10'3 (0-0.9); EOSINOPHILS % (AUTO) 4.3 % (0-6); HEMATOCRIT 41.3 % (42.0-52.0); HEMOGLOBIN 13.3 g/dl (14.0-17.9); LYMPHOCYTES # (AUTO) 1.4 X10'3 (1.1-4.8); LYMPHOCYTES % (AUTO) 20.7 % (21-51); MEAN CORPUSCULAR HEMOGLOBIN 28.9 PG (27.0-31.0); MEAN CORPUSCULAR HGB CONC 32.3 g/dL (33.0-36.5); MEAN CORPUSCULAR VOLUME 89.6 FL (78-98); MEAN PLATELET VOLUME 8.2 FL (7.4-10.4); MONOCYTES # (AUTO) 0.5 X10'3 (0-0.9); MONOCYTES % (AUTO) 7.2 % (2-12); NEUTROPHILS # (AUTO) 4.6 X10'3 (1.8-7.7); NEUTROPHILS % (AUTO) 66.8 % (42-75); PLATELET COUNT 173 X10'3 (140-440); RED BLOOD COUNT 4.61 X10'6 (4.70-6.10); RED CELL DISTRIBUTION WIDTH 15.3 % (11.5-14.5); WHITE BLOOD COUNT 6.9 X10'3 (4.5-11.0)
[2021-05-25 07:55] LABS: ALANINE AMINOTRANSFERASE 16 U/L (12-78); ALBUMIN 2.9 G/DL (3.4-5.0); ALBUMIN/GLOBULIN RATIO 1.3 (1.1-1.5); ALKALINE PHOSPHATASE 126 IU/L (46-116); AMYLASE 23 U/L (25-115); ANION GAP 12 (8-16); ASPARTATE AMINO TRANSFERASE 35 U/L (10-37); BILIRUBIN,TOTAL 0.4 MG/DL (0.1-1.0); BLOOD UREA NITROGEN 31 MG/DL (7-18); CALCIUM 8.1 MG/DL (8.5-10.1); CHLORIDE 106 MMOL/L (99-107); CREATININE 1.35 MG/DL (0.60-1.10); GLUCOSE 146 MG/DL (70-104); LIPASE 86 U/L (73-393); PHOSPHORUS 4.4 MG/DL (2.3-4.5); POTASSIUM 3.6 MMOL/L (3.5-5.1); SODIUM 142 MMOL/L (135-145); TOTAL CARBON DIOXIDE 23.7 MMOL/L (24-32); TOTAL PROTEIN 5.2 G/DL (6.4-8.2); eGFR 53 ML/MIN
[2021-05-25] MEDS: fludrocortisone acetate 0.1mg tablet NG SCH ×3 (08:56→20:00)
[2021-05-25] MEDS: folic acid 1mg tablet PO SCH (09:20)
[2021-05-25] MEDS: lansoprazole 15mg solutab NG SCH (09:20)
[2021-05-25] MEDS: thiamine 100mg tablet PO SCH (09:20)
[2021-05-25] MEDS: apixaban 5mg tablet PO SCH ×2 (09:21→19:59)
[2021-05-25] MEDS: multivitamins, therapeutics tablet PO SCH (09:21)
[2021-05-25] MEDS ORDERED: POTA-207 PO (11:22)
[2021-05-25] MEDS ORDERED: FLO0.4C PO (11:22)
[2021-05-25] MEDS ORDERED: FURO20TA4 PO (11:54)
--- NOTE | 2021-05-25 12:00 | NUR ---
update to md, pt responds to care- moans, occ opens eyes, then back to sleep. alfonso gtt decreased- meds started to increase bp.
[2021-05-25] MEDS: amiodarone 200mg tablet PO SCH ×2 (13:41→20:00)
--- NOTE | 2021-05-25 14:00 | NUR ---
tf increased. neuro status unchanged. alfonso dcd, amio gtt dcd after ogt dose given.
[2021-05-25] MEDS: K and/or MAG REPLACEMENT MC SCH (15:45)
--- NOTE | 2021-05-25 17:00 | NUR ---
increased restlessness, then back to sleep. update to and son by phone
--- NOTE | 2021-05-25 18:30 | NUR ---
Patient in room ICU 2042. I have received report from Cheryl HAWKINS and had the opportunity to ask questions and assume patient care.
[2021-05-25] MEDS ORDERED: apixaban 5mg tablet PO SCH (20:00)
--- NOTE | 2021-05-25 21:43 | NUR ---
Problems reprioritized. Patient report given, questions answered & plan of care reviewed with Karrie HAWKINS. Patient in [id number]
[2021-05-26 02:00] VITALS: BP 97/56
[2021-05-26 06:00] VITALS: BP 94/55
[2021-05-26 06:41] LABS: BASOPHILS % (AUTO) 0.3 % (0-1); EOSINOPHILS # (AUTO) 0.4 X10'3 (0-0.9); HEMATOCRIT 38.6 % (42.0-52.0); HEMOGLOBIN 12.6 g/dl (14.0-17.9); LYMPHOCYTES # (AUTO) 1.6 X10'3 (1.1-4.8); LYMPHOCYTES % (AUTO) 14.8 % (21-51); MEAN CORPUSCULAR HEMOGLOBIN 28.9 PG (27.0-31.0); MEAN CORPUSCULAR HGB CONC 32.7 g/dL (33.0-36.5); MEAN CORPUSCULAR VOLUME 88.4 FL (78-98); MEAN PLATELET VOLUME 8.6 FL (7.4-10.4); MONOCYTES # (AUTO) 0.6 X10'3 (0-0.9); MONOCYTES % (AUTO) 5.8 % (2-12); NEUTROPHILS % (AUTO) 75.1 % (42-75); PLATELET COUNT 159 X10'3 (140-440); RED BLOOD COUNT 4.36 X10'6 (4.70-6.10); RED CELL DISTRIBUTION WIDTH 14.8 % (11.5-14.5); WHITE BLOOD COUNT 10.7 X10'3 (4.5-11.0)
[2021-05-26 07:18] LABS: ALANINE AMINOTRANSFERASE 18 U/L (12-78); ALBUMIN 2.7 G/DL (3.4-5.0); ALBUMIN/GLOBULIN RATIO 1.1 (1.1-1.5); ALKALINE PHOSPHATASE 138 IU/L (46-116); AMYLASE 23 U/L (25-115); ANION GAP 12 (8-16); ASPARTATE AMINO TRANSFERASE 43 U/L (10-37); BILIRUBIN,TOTAL 0.5 MG/DL (0.1-1.0); BLOOD UREA NITROGEN 22 MG/DL (7-18); CALCIUM 8.3 MG/DL (8.5-10.1); CHLORIDE 107 MMOL/L (99-107); GLUCOSE 115 MG/DL (70-104); LIPASE 58 U/L (73-393); POTASSIUM 4.1 MMOL/L (3.5-5.1); PREALBUMIN 7.5 MG/DL (19-36); SODIUM 143 MMOL/L (135-145); TOTAL PROTEIN 5.1 G/DL (6.4-8.2); eGFR 67 ML/MIN
[2021-05-26] MEDS ORDERED: furosemide 20MG tablet PO SCH (08:00)
[2021-05-26] MEDS: metoprolol succinate 25mg (24-HOUR) SR. Tablet PO SCH ×2 (08:14→20:02)
[2021-05-26] MEDS: apixaban 5mg tablet PO SCH ×2 (08:15→20:01)
[2021-05-26] MEDS: fludrocortisone acetate 0.1mg tablet NG SCH ×3 (08:15→20:02)
[2021-05-26] MEDS: multivitamins, therapeutics tablet PO SCH (08:16)
[2021-05-26] MEDS: lansoprazole 15mg solutab NG SCH (08:16)
[2021-05-26] MEDS: thiamine 100mg tablet PO SCH (08:17)
[2021-05-26] MEDS: amiodarone 200mg tablet PO SCH ×3 (08:17→20:01)
[2021-05-26] MEDS: folic acid 1mg tablet PO SCH (08:17)
[2021-05-26] MEDS: K and/or MAG REPLACEMENT MC SCH (08:24)
--- NOTE | 2021-05-26 09:34 | NUR ---
Reassessment: Pt is now A&O x 1 and agitated, tolerating TF at goal with GRV WNL per EMR. LBM 05/23, not currently receiving bowel care per EMR. Recommend routine bowel care if MD agreeable, left message with RN. No changes to recommendations at this time. Will continue to monitor for TF tolerance and adjustment needs. Recs: 1) Continuous TF per MD using Jevity 1.2 at 85ml/hr goal to provide 2040ml volume 2448kcals, 113g protein, 1646ml free water 2) Additional water flush 150 Q4H; monitor serum Na 3) PALB Q / 4) Routine bowel care 5) Daily wts Addendum: 05/26/21 at [address] Amended: Links added. Addendum: 05/26/21 at [address] I have reviewed assessment by music intern
[2021-05-26 11:00] VITALS: BP 99/53
[2021-05-26] MEDS ORDERED: LORazepam 1 MG tablet PO PRN (11:40)
[2021-05-26] MEDS ORDERED: LORazepam 2 mg/ml vial IV PRN (11:40)
--- NOTE | 2021-05-26 11:56 | NUR ---
Temp 101.5ax, HR 99, Resp 22..Need orders Page/text ..Awaiting orders
--- NOTE | 2021-05-26 11:59 | NUR ---
Received orders to give tylenol 650mg via PEG and Cxray per Dr. Wyman.. Addendum: 05/26/21 at 1719 by Shae Blevins RN 1615-Xray completed.Chest Xray positive for PNE, paged Dr. Wyman for any addtl orders?
[2021-05-26] MEDS: acetaminophen 325mg tablet PEG PRN (12:28)
[2021-05-26 15:00] VITALS: BP 112/61
[2021-05-26] MEDS: cefTRIAXone 1g/NS 100ml IVPB 100 ML IV SCH (16:15)
--- NOTE | 2021-05-26 16:19 | NUR ---
Resource RN Telephone order from Dr. Wyman to place Zythromax IV 500mg daily and Rocephin IV 1g every 24hrs. Orders placed for primary RN [facility]
[2021-05-26 18:00] VITALS: BP 134/66
[2021-05-26] MEDS: azithromycin/NS 500mg/250ml 250 ML IV SCH (20:04)
[2021-05-26 22:00] VITALS: BP 108/71
[2021-05-27] MEDS: ipratropium/albuterol 3ml nebule NEB PRN ×2 (00:40→11:34)
[2021-05-27 02:00] VITALS: BP 115/73
[2021-05-27 06:00] VITALS: BP 96/67
--- NOTE | 2021-05-27 06:21 | NUR ---
Problems reprioritized. Patient report given, questions answered & plan of care reviewed with COURTRN.
[2021-05-27 07:20] LABS: BASOPHILS % (AUTO) 0.3 % (0-1); EOSINOPHILS # (AUTO) 0.4 X10'3 (0-0.9); EOSINOPHILS % (AUTO) 4.3 % (0-6); HEMATOCRIT 38.4 % (42.0-52.0); HEMOGLOBIN 12.7 g/dl (14.0-17.9); LYMPHOCYTES # (AUTO) 1.4 X10'3 (1.1-4.8); LYMPHOCYTES % (AUTO) 13.9 % (21-51); MEAN CORPUSCULAR HEMOGLOBIN 29.2 PG (27.0-31.0); MEAN CORPUSCULAR VOLUME 88.6 FL (78-98); MEAN PLATELET VOLUME 9.1 FL (7.4-10.4); MONOCYTES # (AUTO) 0.8 X10'3 (0-0.9); MONOCYTES % (AUTO) 8.1 % (2-12); NEUTROPHILS # (AUTO) 7.5 X10'3 (1.8-7.7); NEUTROPHILS % (AUTO) 73.4 % (42-75); PLATELET COUNT 160 X10'3 (140-440); RED BLOOD COUNT 4.34 X10'6 (4.70-6.10); RED CELL DISTRIBUTION WIDTH 14.8 % (11.5-14.5); WHITE BLOOD COUNT 10.3 X10'3 (4.5-11.0)
[2021-05-27 07:48] LABS: ALANINE AMINOTRANSFERASE 18 U/L (12-78); ALBUMIN 2.7 G/DL (3.4-5.0); ALKALINE PHOSPHATASE 147 IU/L (46-116); AMYLASE 24 U/L (25-115); ANION GAP 10 (8-16); ASPARTATE AMINO TRANSFERASE 32 U/L (10-37); BILIRUBIN,TOTAL 0.6 MG/DL (0.1-1.0); BLOOD UREA NITROGEN 22 MG/DL (7-18); CALCIUM 8.3 MG/DL (8.5-10.1); CHLORIDE 108 MMOL/L (99-107); CREATININE 1.22 MG/DL (0.60-1.10); GLUCOSE 102 MG/DL (70-104); LIPASE 54 U/L (73-393); PHOSPHORUS 3.3 MG/DL (2.3-4.5); POTASSIUM 3.9 MMOL/L (3.5-5.1); SODIUM 144 MMOL/L (135-145); TOTAL PROTEIN 5.3 G/DL (6.4-8.2); eGFR 59 ML/MIN
[2021-05-27] MEDS: K and/or MAG REPLACEMENT MC SCH (08:00)
--- NOTE | 2021-05-27 08:00 | NUR ---
Patient anxious, Per sitter patient managed to pull NGT feeding out of rt nare, feeding tube replaced , checked for placement x2 nurses.NGT patent and intact to left nare. Feeding resumed. Pt received am care, repositioned for comfort, Restraints intact as ordered.Will note any changes.
[2021-05-27 08:04] LABS: MAGNESIUM 1.9 MG/DL (1.5-2.4)
[2021-05-27] MEDS: thiamine 100mg tablet PO SCH (08:40)
[2021-05-27] MEDS: metoprolol succinate 25mg (24-HOUR) SR. Tablet PO SCH ×2 (08:40→20:08)
[2021-05-27] MEDS: amiodarone 200mg tablet PO SCH ×3 (08:40→20:08)
[2021-05-27] MEDS: apixaban 5mg tablet PO SCH ×2 (08:40→20:09)
[2021-05-27] MEDS: folic acid 1mg tablet PO SCH (08:40)
[2021-05-27] MEDS: fludrocortisone acetate 0.1mg tablet NG SCH ×3 (08:41→20:09)
[2021-05-27] MEDS: lansoprazole 15mg solutab NG SCH (08:41)
[2021-05-27] MEDS: cefTRIAXone 1g/NS 100ml IVPB 100 ML IV SCH (08:42)
[2021-05-27] MEDS: furosemide 40mg/4ml inj IV SCH ×2 (08:42→20:07)
[2021-05-27] MEDS: multivitamins, therapeutics tablet PO SCH (08:43)
[2021-05-27] MEDS: azithromycin/NS 500mg/250ml 250 ML IV SCH (09:57)
[2021-05-27 11:00] VITALS: BP 114/59
--- NOTE | 2021-05-27 14:26 | NUR ---
PRESSURE ULCER EDUCATION: DEFINITION: A pressure ulcer is an area of skin that breaks down when you stay in one position too long. The constant pressure against the skin reduces the blood flow to that area and the affected tissue dies. CAUSES: "Being bedridden or in a wheelchair "Fragile skin "Having a chronic condition, such as diabetes or vascular disease "Inability to move certain parts of your body without assistance "Older age "Incontinence of urine or stool SYMPTOMS: "A reddened area that DOES NOT turn white when pressed on - this can be the beginning of a pressure ulcer "A blister, deep sore or a crater - these can be advanced pressure ulcers FIRST AID: "Relieve the pressure on this area "Keep the area clean and dry "Call your primary doctor if you see any of the above symptoms "DO NOT massage the area "DO NOT use a donut shaped or ring shaped pillow- these actually interfere with the blood flow and cause complications PREVENTION: "Check for pressure ulcers everyday "Change position at least every two hours to relieve pressure "Use items that help relieve pressure- pillows, sheepskin, foam padding, and powders. "Keep skin clean and dry "Eat healthy well balanced meals "Exercise daily IF YOU SEE ANY OF THESE SYMPTOMS WHILE IN THE HOSPITAL - TELL YOUR NURSE IMMEDIATELY. IF YOU SEE ANY OF THESE SYMPTOMS WHILE AT HOME OR HAVE ANY QUESTIONS OR CONCERNS ABOUT PRESSURE ULCERS - CALL YOUR PRIMARY DOCTOR IMMEDIATELY. Addendum: 05/27/21 at 1426 by Lulu Curry RN Amended: Links added.
[2021-05-27 15:00] VITALS: BP 113/69
[2021-05-27 19:00] VITALS: BP 118/77
[2021-05-27 23:00] VITALS: BP 105/55
[2021-05-28] MEDS: QUEtiapine 25mg tablet PO PRN ×3 (00:17→20:20)
[2021-05-28 03:00] VITALS: BP 94/45
[2021-05-28 06:00] VITALS: BP 95/55
--- NOTE | 2021-05-28 06:23 | NUR ---
Problems reprioritized. Patient report given, questions answered & plan of care reviewed with ROSS Mcdonald.
[2021-05-28 07:29] LABS: BASOPHILS % (AUTO) 0.3 % (0-1); EOSINOPHILS # (AUTO) 0.5 X10'3 (0-0.9); EOSINOPHILS % (AUTO) 8.4 % (0-6); HEMATOCRIT 42.3 % (42.0-52.0); HEMOGLOBIN 13.7 g/dl (14.0-17.9); MEAN CORPUSCULAR HEMOGLOBIN 28.7 PG (27.0-31.0); MEAN CORPUSCULAR HGB CONC 32.3 g/dL (33.0-36.5); MEAN CORPUSCULAR VOLUME 88.8 FL (78-98); MEAN PLATELET VOLUME 8.9 FL (7.4-10.4); MONOCYTES # (AUTO) 0.5 X10'3 (0-0.9); MONOCYTES % (AUTO) 8.7 % (2-12); NEUTROPHILS # (AUTO) 4.1 X10'3 (1.8-7.7); NEUTROPHILS % (AUTO) 66.6 % (42-75); PLATELET COUNT 185 X10'3 (140-440); RED BLOOD COUNT 4.77 X10'6 (4.70-6.10); RED CELL DISTRIBUTION WIDTH 15.2 % (11.5-14.5); WHITE BLOOD COUNT 6.1 X10'3 (4.5-11.0)
[2021-05-28 07:37] LABS: ALANINE AMINOTRANSFERASE 18 U/L (12-78); ALBUMIN 2.9 G/DL (3.4-5.0); ALKALINE PHOSPHATASE 167 IU/L (46-116); AMYLASE 26 U/L (25-115); ANION GAP 11 (8-16); ASPARTATE AMINO TRANSFERASE 36 U/L (10-37); BILIRUBIN,TOTAL 0.5 MG/DL (0.1-1.0); BLOOD UREA NITROGEN 26 MG/DL (7-18); BUN/CREATININE RATIO 20.5 (5.4-32.0); CALCIUM 8.7 MG/DL (8.5-10.1); CHLORIDE 105 MMOL/L (99-107); CREATININE 1.27 MG/DL (0.60-1.10); GLUCOSE 96 MG/DL (70-104); LIPASE 85 U/L (73-393); PHOSPHORUS 4.5 MG/DL (2.3-4.5); POTASSIUM 3.8 MMOL/L (3.5-5.1); SODIUM 146 MMOL/L (135-145); TOTAL CARBON DIOXIDE 29.7 MMOL/L (24-32); TOTAL PROTEIN 5.9 G/DL (6.4-8.2); eGFR 57 ML/MIN
[2021-05-28] MEDS: folic acid 1mg tablet PO SCH (07:59)
[2021-05-28] MEDS: furosemide 40mg/4ml inj IV SCH ×2 (07:59→20:20)
[2021-05-28] MEDS: thiamine 100mg tablet PO SCH (07:59)
[2021-05-28] MEDS: apixaban 5mg tablet PO SCH ×2 (07:59→20:20)
[2021-05-28] MEDS: multivitamins, therapeutics tablet PO SCH (07:59)
[2021-05-28] MEDS: lansoprazole 15mg solutab NG SCH (07:59)
[2021-05-28] MEDS: fludrocortisone acetate 0.1mg tablet NG SCH ×3 (08:00→20:21)
[2021-05-28] MEDS: K and/or MAG REPLACEMENT MC SCH (08:00)
[2021-05-28] MEDS: metoprolol succinate 25mg (24-HOUR) SR. Tablet PO SCH ×2 (08:00→20:21)
[2021-05-28] MEDS: amiodarone 200mg tablet PO SCH ×3 (08:00→20:20)
[2021-05-28] MEDS: cefTRIAXone 1g/NS 100ml IVPB 100 ML IV SCH (08:34)
[2021-05-28] MEDS: azithromycin/NS 500mg/250ml 250 ML IV SCH (08:35)
[2021-05-28 11:00] VITALS: BP 108/73
[2021-05-28] MEDS ORDERED: LORazepam 1 MG tablet PO PRN (11:40)
[2021-05-28] MEDS ORDERED: LORazepam 2 mg/ml vial IV PRN (11:40)
--- NOTE | 2021-05-28 14:10 | NUR ---
Reassessment: Pt remains confused and with a sitter at bedside however per patient centered care specialist pt pulled out NGT 05/27 which has since been replaced and TF resumed of which pt is tolerating at goal rate with GRV WNL. IF pt to continue to require nutrition support recommend PEG for fdc nutrition. Noted serum Na slightly elevated today, pt receiving 150 mL water flushes Q4H. LBM 05/27 per I&O. Will continue to follow closely and monitor need for adjustments to TF recommendations. Recommendations: 1) Continuous TF per MD using Jevity 1.2 with 85 ml/hr goal to provide 2040 ml total volume/day, 2448 kcal, 113 g protein, and 1646 ml water 2) Additional 150 mL water flush Q4H; monitor serum Na 3) PALB q Sunday/ 4) Routine bowel care 5) Daily scaled wts 6) Consider PEG for fdc nutrition if pt unable to tolerate PO intake; recommend BSS with ST prior to PO diet advancement Addendum: 05/28/21 at [address] Amended: Links added.
[2021-05-28 15:00] VITALS: BP 109/56
--- NOTE | 2021-05-28 18:20 | NUR ---
Patient in room PCU 3017. I have received report from ROSS Mcdonald and had the opportunity to ask questions and assume patient care.
[2021-05-28 19:00] VITALS: BP 111/61
[2021-05-28 23:00] VITALS: BP 103/55
[2021-05-29 03:00] VITALS: BP 99/60
[2021-05-29 06:00] VITALS: BP 113/74
--- NOTE | 2021-05-29 06:49 | NUR ---
Problems reprioritized. Patient report given, questions answered & plan of care reviewed with ROSS Earl.
[2021-05-29 06:59] LABS: BASOPHILS % (AUTO) 0.7 % (0-1); EOSINOPHILS # (AUTO) 0.5 X10'3 (0-0.9); HEMATOCRIT 38.2 % (42.0-52.0); HEMOGLOBIN 12.5 g/dl (14.0-17.9); LYMPHOCYTES % (AUTO) 16.8 % (21-51); MEAN CORPUSCULAR HEMOGLOBIN 29.2 PG (27.0-31.0); MEAN CORPUSCULAR HGB CONC 32.8 g/dL (33.0-36.5); MEAN PLATELET VOLUME 8.5 FL (7.4-10.4); MONOCYTES # (AUTO) 0.6 X10'3 (0-0.9); MONOCYTES % (AUTO) 10.2 % (2-12); NEUTROPHILS # (AUTO) 3.7 X10'3 (1.8-7.7); NEUTROPHILS % (AUTO) 63.3 % (42-75); PLATELET COUNT 192 X10'3 (140-440); RED BLOOD COUNT 4.29 X10'6 (4.70-6.10); RED CELL DISTRIBUTION WIDTH 14.9 % (11.5-14.5); WHITE BLOOD COUNT 5.9 X10'3 (4.5-11.0)
[2021-05-29 07:23] LABS: ALANINE AMINOTRANSFERASE 18 U/L (12-78); ALBUMIN 2.7 G/DL (3.4-5.0); ALBUMIN/GLOBULIN RATIO 0.9 (1.1-1.5); ALKALINE PHOSPHATASE 162 IU/L (46-116); AMYLASE 26 U/L (25-115); ANION GAP 8 (8-16); ASPARTATE AMINO TRANSFERASE 20 U/L (10-37); BILIRUBIN,TOTAL 0.4 MG/DL (0.1-1.0); BLOOD UREA NITROGEN 27 MG/DL (7-18); CALCIUM 8.6 MG/DL (8.5-10.1); CHLORIDE 106 MMOL/L (99-107); CREATININE 1.23 MG/DL (0.60-1.10); GLUCOSE 98 MG/DL (70-104); LIPASE 102 U/L (73-393); PHOSPHORUS 4.5 MG/DL (2.3-4.5); POTASSIUM 3.6 MMOL/L (3.5-5.1); SODIUM 148 MMOL/L (135-145); TOTAL CARBON DIOXIDE 33.9 MMOL/L (24-32); TOTAL PROTEIN 5.7 G/DL (6.4-8.2); eGFR 59 ML/MIN
[2021-05-29] MEDS: thiamine 100mg tablet PO SCH (09:49)
[2021-05-29] MEDS: lansoprazole 15mg solutab NG SCH (09:50)
[2021-05-29] MEDS: metoprolol succinate 25mg (24-HOUR) SR. Tablet PO SCH ×2 (09:50→21:12)
[2021-05-29] MEDS: multivitamins, therapeutics tablet PO SCH (09:51)
[2021-05-29] MEDS: fludrocortisone acetate 0.1mg tablet NG SCH ×3 (09:51→21:12)
[2021-05-29] MEDS: amiodarone 200mg tablet PO SCH ×3 (09:51→21:12)
[2021-05-29] MEDS: folic acid 1mg tablet PO SCH (09:51)
[2021-05-29] MEDS: furosemide 40mg/4ml inj IV SCH ×2 (09:51→21:11)
[2021-05-29] MEDS: apixaban 5mg tablet PO SCH ×2 (09:51→20:00)
[2021-05-29] MEDS: cefTRIAXone 1g/NS 100ml IVPB 100 ML IV SCH (09:52)
[2021-05-29] MEDS: azithromycin/NS 500mg/250ml 250 ML IV SCH (09:52)
[2021-05-29 11:00] VITALS: BP 114/80
--- NOTE | 2021-05-29 14:08 | NUR ---
Pt Champ Noland Rm 7763-A Need order to renew his restraints please. Rajat/ROSS PCU 1244
[2021-05-29 15:00] VITALS: BP 105/65
--- NOTE | 2021-05-29 18:20 | NUR ---
Patient in room PCU 3017. I have received report from ROSS Earl and had the opportunity to ask questions and assume patient care.
--- NOTE | 2021-05-29 18:41 | NUR ---
[id number] MESSAGE: Trent Oakes 3017A the patient just pulled out the NG tube, it's the 5th time that happens since he had it. Do you want me to reinserted it. Thanks.
[2021-05-29 19:00] VITALS: BP 105/65
[2021-05-29 23:00] VITALS: BP 103/59
[2021-05-30 03:00] VITALS: BP 107/63
--- NOTE | 2021-05-30 05:55 | NUR ---
Patient pulled out the NG tube, new one reinserted, tolerated procedure well. Sitter at bedside. Safety measures and comfort maintained. Will continue to monitor.
[2021-05-30 06:00] VITALS: BP 114/63
--- NOTE | 2021-05-30 06:10 | NUR ---
Problems reprioritized. Patient report given, questions answered & plan of care reviewed with ROSS Earl.
[2021-05-30 06:55] LABS: POTASSIUM 3.5 MMOL/L (3.5-5.1); PREALBUMIN 8.4 MG/DL (19-36)
--- NOTE | 2021-05-30 08:45 | NUR ---
Dameon consult:Pt w/ rosalva dyer, per WOC note pt has a L calf pressure ulcer DTI, though smaller in size today and healing, currently measuring 5.8 cm x 4.5 cm . Pt remains confused, currently requiring restraints and with a sitter at bedside per EMR. Pt is tolerating TF at goal and with GRV WNL. Noted serum Na slightly elevated 05/29 and has been increasing since admit, pt receiving 150 mL water flushes Q4H. Discussed w/ RN if MD would like to change water flushes given serum Na. LBM 05/29 per I&O. Will continue to follow closely and monitor need for adjustments to TF recommendations. Recommendations: 1) Continuous TF per MD using Jevity 1.2 with 85 ml/hr goal to provide 2040 ml total volume/day, 2448 kcal, 113 g protein, and 1646 ml water 2) Additional 150 mL water flush Q4H; monitor serum Na; MD may adjust 3) PALB q Sunday/ 4) Routine bowel care 5) Daily scaled wts 6) Consider PEG for terminal press operator nutrition if pt unable to tolerate PO intake; recommend BSS with ST prior to PO diet advancement 7) Continue routine Thiamine, Folic acid, and MVI for EtOH hx Addendum: 05/30/21 at [address] Amended: Links added. Addendum: 05/30/21 at [address] I have reviewed assessment by engineer internship
[2021-05-30] MEDS: folic acid 1mg tablet PO SCH (08:49)
[2021-05-30] MEDS: thiamine 100mg tablet PO SCH (08:49)
[2021-05-30] MEDS: fludrocortisone acetate 0.1mg tablet NG SCH ×3 (08:49→19:40)
[2021-05-30] MEDS: metoprolol succinate 25mg (24-HOUR) SR. Tablet PO SCH ×2 (08:49→19:40)
[2021-05-30] MEDS: lansoprazole 15mg solutab NG SCH (08:49)
[2021-05-30] MEDS: QUEtiapine 25mg tablet PO PRN ×2 (08:50→19:41)
[2021-05-30] MEDS: multivitamins, therapeutics tablet PO SCH (08:50)
[2021-05-30] MEDS: furosemide 40mg/4ml inj IV SCH (08:50)
[2021-05-30] MEDS: apixaban 5mg tablet PO SCH ×2 (08:50→19:40)
[2021-05-30] MEDS: azithromycin/NS 500mg/250ml 250 ML IV SCH (08:52)
[2021-05-30] MEDS: cefTRIAXone 1g/NS 100ml IVPB 100 ML IV SCH (08:52)
[2021-05-30] MEDS: amiodarone 200mg tablet PO SCH ×3 (08:52→19:41)
[2021-05-30 12:30] VITALS: BP 109/57
[2021-05-30 15:00] VITALS: BP 104/55
--- NOTE | 2021-05-30 15:22 | NUR ---
Charting by Rudolph ROBERTS reviewed by Edwin Ashby RN
[2021-05-30 18:00] VITALS: BP 112/62
[2021-05-30 22:00] VITALS: BP 138/64
[2021-05-31 02:00] VITALS: BP 129/60
[2021-05-31 06:00] VITALS: BP 117/66
[2021-05-31] MEDS: QUEtiapine 25mg tablet PO PRN ×3 (08:07→21:04)
[2021-05-31] MEDS: lansoprazole 15mg solutab NG SCH (08:07)
[2021-05-31] MEDS: amiodarone 200mg tablet PO SCH ×3 (08:07→21:03)
[2021-05-31] MEDS: metoprolol succinate 25mg (24-HOUR) SR. Tablet PO SCH ×2 (08:08→20:00)
[2021-05-31] MEDS: folic acid 1mg tablet PO SCH (08:08)
[2021-05-31] MEDS: apixaban 5mg tablet PO SCH ×2 (08:08→20:00)
[2021-05-31] MEDS: fludrocortisone acetate 0.1mg tablet NG SCH ×3 (08:08→21:03)
[2021-05-31] MEDS: multivitamins, therapeutics tablet PO SCH (08:08)
[2021-05-31] MEDS: thiamine 100mg tablet PO SCH (08:09)
[2021-05-31] MEDS: furosemide 40mg/4ml inj IV SCH (08:10)
[2021-05-31] MEDS: cefTRIAXone 1g/NS 100ml IVPB 100 ML IV SCH (08:10)
[2021-05-31] MEDS: azithromycin/NS 500mg/250ml 250 ML IV SCH (08:10)
[2021-05-31 11:00] VITALS: BP 115/62
[2021-05-31 15:00] VITALS: BP 141/62
[2021-05-31] MEDS: potassium Cl 20 mEq SR tablet PO PRN (16:15)
[2021-05-31 18:00] VITALS: BP 138/72
--- NOTE | 2021-05-31 18:20 | NUR ---
Pt Champ Rm 3017-A got very agitated. He pulled out IV. Put him back on restraints. Need order for the restraints please
[2021-05-31 23:17] VITALS: BP 133/76
[2021-06-01 06:00] VITALS: BP 98/60
--- NOTE | 2021-06-01 06:20 | NUR ---
Patient in room PCU 3017. I have received report from Kerline HAWKINS and had the opportunity to ask questions and assume patient care.
[2021-06-01 06:26] LABS: BASOPHILS # (AUTO) 0.1 X10'3 (0-0.2); EOSINOPHILS # (AUTO) 0.5 X10'3 (0-0.9); EOSINOPHILS % (AUTO) 7.4 % (0-6); HEMATOCRIT 38.7 % (42.0-52.0); HEMOGLOBIN 12.7 g/dl (14.0-17.9); LYMPHOCYTES # (AUTO) 1.8 X10'3 (1.1-4.8); LYMPHOCYTES % (AUTO) 26.7 % (21-51); MEAN CORPUSCULAR HEMOGLOBIN 28.7 PG (27.0-31.0); MEAN CORPUSCULAR HGB CONC 32.7 g/dL (33.0-36.5); MEAN CORPUSCULAR VOLUME 87.5 FL (78-98); MONOCYTES # (AUTO) 0.6 X10'3 (0-0.9); MONOCYTES % (AUTO) 9.1 % (2-12); NEUTROPHILS # (AUTO) 3.7 X10'3 (1.8-7.7); NEUTROPHILS % (AUTO) 55.8 % (42-75); PLATELET COUNT 225 X10'3 (140-440); RED BLOOD COUNT 4.42 X10'6 (4.70-6.10); RED CELL DISTRIBUTION WIDTH 14.6 % (11.5-14.5); WHITE BLOOD COUNT 6.6 X10'3 (4.5-11.0)
[2021-06-01 06:29] LABS: ALBUMIN 2.9 G/DL (3.4-5.0); ANION GAP 5 (8-16); BLOOD UREA NITROGEN 34 MG/DL (7-18); BUN/CREATININE RATIO 30.1 (5.4-32.0); CALCIUM 8.7 MG/DL (8.5-10.1); CHLORIDE 104 MMOL/L (99-107); CREATININE 1.13 MG/DL (0.60-1.10); GLUCOSE 75 MG/DL (70-104); POTASSIUM 3.2 MMOL/L (3.5-5.1); SODIUM 143 MMOL/L (135-145); TOTAL CARBON DIOXIDE 33.7 MMOL/L (24-32); eGFR 65 ML/MIN
[2021-06-01 06:56] LABS: TOTAL CELLS COUNTED 100
[2021-06-01 06:57] LABS: PLATELET ESTIMATE NORMAL
[2021-06-01] MEDS: furosemide 40mg/4ml inj IV SCH (08:33)
[2021-06-01] MEDS: thiamine 100mg tablet PO SCH (08:34)
[2021-06-01] MEDS: multivitamins, therapeutics tablet PO SCH (08:34)
[2021-06-01] MEDS: apixaban 5mg tablet PO SCH ×2 (08:34→20:34)
[2021-06-01] MEDS: metoprolol succinate 25mg (24-HOUR) SR. Tablet PO SCH ×3 (08:34→20:34)
[2021-06-01] MEDS: folic acid 1mg tablet PO SCH (08:34)
[2021-06-01] MEDS: fludrocortisone acetate 0.1mg tablet NG SCH ×3 (08:34→20:34)
[2021-06-01] MEDS: lansoprazole 15mg solutab NG SCH (08:34)
[2021-06-01] MEDS: potassium Cl 20 mEq SR tablet PO PRN ×2 (08:34→20:34)
[2021-06-01] MEDS: amiodarone 200mg tablet PO SCH ×3 (08:34→20:34)
[2021-06-01] MEDS: cefTRIAXone 1g/NS 100ml IVPB 100 ML IV SCH (08:35)
--- NOTE | 2021-06-01 09:06 | NUR ---
Reassessment: Pt is no longer on TF, cancelled by physician 05/30 given pt's diet was advanced per LAB TESTER recs. Pt is currently on SB6/Heart Healthy diet and eating average 97% x 5 meals meeting estimated energy and protein needs. LBM 05/29, not currently receiving routine bowel care per EMR. No nutrition intervention implemented at this time. Will continue to follow. Recommendations: 1) Continue Heart Healthy/SB6 diet per LAB TESTER 2) Monitor need for additional protein if PO intake declines 3) Routine bowel care 4) Continue routine Thiamine, Folic acid, and MVI for EtOH hx Addendum: 06/01/21 at [address] Amended: Links added. Addendum: 06/01/21 at [address] I have reviewed assessment by internal grinder tender
[2021-06-01] MEDS: azithromycin/NS 500mg/250ml 250 ML IV SCH (10:07)
[2021-06-01 11:00] VITALS: BP 124/78
[2021-06-01 18:00] VITALS: BP 135/88
--- NOTE | 2021-06-01 18:15 | NUR ---
Problems reprioritized. Patient report given, questions answered & plan of care reviewed with Chi RN.
[2021-06-01] MEDS ORDERED: risperiDONE 0.5mg tablet PO SCH (21:00)
[2021-06-01 22:00] VITALS: BP 115/84
[2021-06-02 02:00] VITALS: BP 108/86
[2021-06-02 06:00] VITALS: BP 121/82
[2021-06-02] MEDS: cefTRIAXone 1g/NS 100ml IVPB 100 ML IV SCH (09:18)
[2021-06-02] MEDS: furosemide 40mg/4ml inj IV SCH (09:19)
[2021-06-02] MEDS: lansoprazole 15mg solutab NG SCH (09:19)
[2021-06-02] MEDS: amiodarone 200mg tablet PO SCH ×3 (09:19→20:46)
[2021-06-02] MEDS: metoprolol succinate 25mg (24-HOUR) SR. Tablet PO SCH ×2 (09:19→20:46)
[2021-06-02] MEDS: thiamine 100mg tablet PO SCH (09:19)
[2021-06-02] MEDS: azithromycin/NS 500mg/250ml 250 ML IV SCH (09:20)
[2021-06-02] MEDS: apixaban 5mg tablet PO SCH ×2 (09:20→20:46)
[2021-06-02] MEDS: folic acid 1mg tablet PO SCH (09:20)
[2021-06-02] MEDS: multivitamins, therapeutics tablet PO SCH (09:20)
[2021-06-02] MEDS: fludrocortisone acetate 0.1mg tablet NG SCH ×3 (09:20→20:47)
[2021-06-02 11:00] VITALS: BP 125/73
[2021-06-02] MEDS ORDERED: LORazepam 2 mg/ml vial IV PRN (13:00)
[2021-06-02 13:29] LABS: ALBUMIN 2.9 G/DL (3.4-5.0); ANION GAP 8 (8-16); BLOOD UREA NITROGEN 30 MG/DL (7-18); BUN/CREATININE RATIO 27.8 (5.4-32.0); CALCIUM 8.7 MG/DL (8.5-10.1); CHLORIDE 102 MMOL/L (99-107); CREATININE 1.08 MG/DL (0.60-1.10); GLUCOSE 76 MG/DL (70-104); POTASSIUM 3.2 MMOL/L (3.5-5.1); SODIUM 144 MMOL/L (135-145); TOTAL CARBON DIOXIDE 33.6 MMOL/L (24-32); eGFR 68 ML/MIN
[2021-06-02 15:00] VITALS: BP 106/62
[2021-06-02] MEDS: acetaminophen 325mg tablet PEG PRN (16:48)
[2021-06-02 22:00] VITALS: BP 123/79
[2021-06-03 02:00] VITALS: BP 120/61
[2021-06-03 05:34] LABS: BASOPHILS # (AUTO) 0.1 X10'3 (0-0.2); EOSINOPHILS # (AUTO) 0.3 X10'3 (0-0.9); HEMOGLOBIN 13.2 g/dl (14.0-17.9); MONOCYTES # (AUTO) 0.6 X10'3 (0-0.9); NEUTROPHILS # (AUTO) 3.7 X10'3 (1.8-7.7)
[2021-06-03 05:36] LABS: BASOPHILS % (AUTO) 0.8 % (0-1); EOSINOPHILS % (AUTO) 4.7 % (0-6); HEMATOCRIT 40.1 % (42.0-52.0); LYMPHOCYTES # (AUTO) 2.1 X10'3 (1.1-4.8); LYMPHOCYTES % (AUTO) 30.9 % (21-51); MEAN CORPUSCULAR HEMOGLOBIN 28.4 PG (27.0-31.0); MEAN CORPUSCULAR VOLUME 86.2 FL (78-98); MEAN PLATELET VOLUME 8.5 FL (7.4-10.4); MONOCYTES % (AUTO) 9.2 % (2-12); NEUTROPHILS % (AUTO) 54.4 % (42-75); PLATELET COUNT 244 X10'3 (140-440); RED BLOOD COUNT 4.65 X10'6 (4.70-6.10); RED CELL DISTRIBUTION WIDTH 14.7 % (11.5-14.5); WHITE BLOOD COUNT 6.8 X10'3 (4.5-11.0)
[2021-06-03 05:40] LABS: ALBUMIN 2.9 G/DL (3.4-5.0); ANION GAP 8 (8-16); BLOOD UREA NITROGEN 25 MG/DL (7-18); BUN/CREATININE RATIO 21.9 (5.4-32.0); CALCIUM 8.9 MG/DL (8.5-10.1); CHLORIDE 99 MMOL/L (99-107); CREATININE 1.14 MG/DL (0.60-1.10); GLUCOSE 81 MG/DL (70-104); SODIUM 140 MMOL/L (135-145); TOTAL CARBON DIOXIDE 32.8 MMOL/L (24-32); eGFR 64 ML/MIN
--- NOTE | 2021-06-03 06:07 | NUR ---
Lab called at 6.05 to notify staff of K OF 3.0. No replacement orders on file. Hospitalist paged for orders. Day shift RN notified for follow up. Patient stable at this time.
[2021-06-03 07:06] VITALS: BP 109/72
--- NOTE | 2021-06-03 07:22 | NUR ---
Page to Walter Oakes [id number] potassium level is 3.0. PRN dose is already ordered. Lasix is also ordered
[2021-06-03] MEDS: furosemide 40mg/4ml inj IV SCH (08:00)
[2021-06-03] MEDS: multivitamins, therapeutics tablet PO SCH (08:06)
[2021-06-03] MEDS: folic acid 1mg tablet PO SCH (08:06)
[2021-06-03] MEDS: thiamine 100mg tablet PO SCH (08:06)
[2021-06-03] MEDS: fludrocortisone acetate 0.1mg tablet NG SCH ×3 (08:06→20:43)
[2021-06-03] MEDS: metoprolol succinate 25mg (24-HOUR) SR. Tablet PO SCH ×2 (08:06→20:43)
[2021-06-03] MEDS: apixaban 5mg tablet PO SCH ×2 (08:06→20:43)
[2021-06-03] MEDS: lansoprazole 15mg solutab NG SCH (08:06)
[2021-06-03] MEDS: amiodarone 200mg tablet PO SCH ×3 (08:08→20:43)
[2021-06-03] MEDS: cefTRIAXone 1g/NS 100ml IVPB 100 ML IV SCH (08:09)
[2021-06-03] MEDS: potassium Cl 20 mEq SR tablet PO PRN ×3 (09:47→20:50)
[2021-06-03 10:58] VITALS: BP 106/64
[2021-06-03] MEDS: acetaminophen 325mg tablet PEG PRN (13:18)
[2021-06-03 15:00] VITALS: BP 118/87
[2021-06-03 18:00] VITALS: BP 128/78
[2021-06-03 22:00] VITALS: BP 106/76
[2021-06-04 02:00] VITALS: BP 122/78
[2021-06-04 06:00] VITALS: BP 155/68
[2021-06-04] MEDS: furosemide 40mg/4ml inj IV SCH (07:57)
[2021-06-04] MEDS: folic acid 1mg tablet PO SCH (07:58)
[2021-06-04] MEDS: lansoprazole 15mg solutab NG SCH (07:58)
[2021-06-04] MEDS: metoprolol succinate 25mg (24-HOUR) SR. Tablet PO SCH ×2 (07:58→20:25)
[2021-06-04] MEDS: amiodarone 200mg tablet PO SCH ×3 (07:58→20:25)
[2021-06-04] MEDS: thiamine 100mg tablet PO SCH (07:58)
[2021-06-04] MEDS: fludrocortisone acetate 0.1mg tablet NG SCH ×3 (07:58→20:24)
[2021-06-04] MEDS: multivitamins, therapeutics tablet PO SCH (07:59)
[2021-06-04] MEDS: apixaban 5mg tablet PO SCH ×2 (07:59→20:24)
[2021-06-04 08:55] LABS: BASOPHILS # (AUTO) 0.1 X10'3 (0-0.2); EOSINOPHILS # (AUTO) 0.3 X10'3 (0-0.9); HEMOGLOBIN 13.1 g/dl (14.0-17.9); LYMPHOCYTES # (AUTO) 2.4 X10'3 (1.1-4.8); MEAN CORPUSCULAR HEMOGLOBIN 28.6 PG (27.0-31.0); MONOCYTES # (AUTO) 0.5 X10'3 (0-0.9)
[2021-06-04 08:59] LABS: BASOPHILS % (AUTO) 0.9 % (0-1); EOSINOPHILS % (AUTO) 4.3 % (0-6); LYMPHOCYTES % (AUTO) 33.4 % (21-51); MEAN CORPUSCULAR HGB CONC 32.7 g/dL (33.0-36.5); MEAN CORPUSCULAR VOLUME 87.6 FL (78-98); MEAN PLATELET VOLUME 8.7 FL (7.4-10.4); MONOCYTES % (AUTO) 6.4 % (2-12); PLATELET COUNT 267 X10'3 (140-440); RED BLOOD COUNT 4.56 X10'6 (4.70-6.10); RED CELL DISTRIBUTION WIDTH 14.8 % (11.5-14.5); WHITE BLOOD COUNT 7.3 X10'3 (4.5-11.0)
[2021-06-04 09:38] LABS: ALANINE AMINOTRANSFERASE 19 U/L (12-78); ALBUMIN 3.2 G/DL (3.4-5.0); ALBUMIN/GLOBULIN RATIO 1.1 (1.1-1.5); ALKALINE PHOSPHATASE 146 IU/L (46-116); ANION GAP 11 (8-16); ASPARTATE AMINO TRANSFERASE 23 U/L (10-37); BILIRUBIN,TOTAL 0.4 MG/DL (0.1-1.0); BLOOD UREA NITROGEN 26 MG/DL (7-18); BUN/CREATININE RATIO 20.5 (5.4-32.0); CALCIUM 9.1 MG/DL (8.5-10.1); CHLORIDE 102 MMOL/L (99-107); CREATININE 1.27 MG/DL (0.60-1.10); GLUCOSE 70 MG/DL (70-104); POTASSIUM 3.6 MMOL/L (3.5-5.1); SODIUM 143 MMOL/L (135-145); TOTAL CARBON DIOXIDE 30.1 MMOL/L (24-32); TOTAL PROTEIN 6.1 G/DL (6.4-8.2); eGFR 57 ML/MIN
[2021-06-04 11:00] VITALS: BP 105/56
[2021-06-04] MEDS: ipratropium/albuterol 3ml nebule NEB PRN (11:46)
[2021-06-04] MEDS: acetaminophen 325mg tablet PEG PRN (13:51)
[2021-06-04 18:00] VITALS: BP 137/56
[2021-06-04 22:00] VITALS: BP 100/49
[2021-06-05 02:00] VITALS: BP 104/53
[2021-06-05] MEDS: acetaminophen 325mg tablet PEG PRN ×2 (04:54→16:41)
[2021-06-05 06:00] VITALS: BP 105/68
[2021-06-05 07:25] LABS: BASOPHILS # (AUTO) 0.1 X10'3 (0-0.2); EOSINOPHILS # (AUTO) 0.4 X10'3 (0-0.9); MONOCYTES # (AUTO) 0.5 X10'3 (0-0.9); NEUTROPHILS # (AUTO) 4.3 X10'3 (1.8-7.7); WHITE BLOOD COUNT 7.8 X10'3 (4.5-11.0)
[2021-06-05 07:28] LABS: BASOPHILS % (AUTO) 0.7 % (0-1); HEMATOCRIT 38.2 % (42.0-52.0); HEMOGLOBIN 12.3 g/dl (14.0-17.9); LYMPHOCYTES # (AUTO) 2.6 X10'3 (1.1-4.8); LYMPHOCYTES % (AUTO) 32.7 % (21-51); MEAN CORPUSCULAR HEMOGLOBIN 27.5 PG (27.0-31.0); MEAN CORPUSCULAR HGB CONC 32.1 g/dL (33.0-36.5); MEAN CORPUSCULAR VOLUME 85.9 FL (78-98); MEAN PLATELET VOLUME 8.9 FL (7.4-10.4); MONOCYTES % (AUTO) 6.6 % (2-12); PLATELET COUNT 269 X10'3 (140-440); RED BLOOD COUNT 4.45 X10'6 (4.70-6.10); RED CELL DISTRIBUTION WIDTH 14.8 % (11.5-14.5)
[2021-06-05 07:46] LABS: ALANINE AMINOTRANSFERASE 16 U/L (12-78); ALBUMIN/GLOBULIN RATIO 1.1 (1.1-1.5); ALKALINE PHOSPHATASE 132 IU/L (46-116); ANION GAP 6 (8-16); ASPARTATE AMINO TRANSFERASE 24 U/L (10-37); BILIRUBIN,TOTAL 0.4 MG/DL (0.1-1.0); BLOOD UREA NITROGEN 30 MG/DL (7-18); BUN/CREATININE RATIO 22.7 (5.4-32.0); CALCIUM 8.1 MG/DL (8.5-10.1); CHLORIDE 103 MMOL/L (99-107); CREATININE 1.32 MG/DL (0.60-1.10); GLUCOSE 80 MG/DL (70-104); POTASSIUM 3.6 MMOL/L (3.5-5.1); SODIUM 140 MMOL/L (135-145); TOTAL CARBON DIOXIDE 31.1 MMOL/L (24-32); TOTAL PROTEIN 5.8 G/DL (6.4-8.2); eGFR 54 ML/MIN
--- NOTE | 2021-06-05 07:59 | NUR ---
Reassessment; Pt continues on SB6/Heart Healthy diet w/ some decline in PO intake, avg 65% x 12 meals partially meeting est nutrient needs, requires feeder. Pt remains confused per MD note. May benefit from Ensure Enlive BID to help meet est nutrient needs. [facility] 06/03 w/ no bowel care. Will continue to monitor and make recommendations as appropriate. Recommendations: 1) Continue Heart Healthy/SB6 diet per BARBED WIRE MACHINE OPERATOR 2) Ensure Enlive BIDBD; pending MD verification 3) Routine bowel care 4) Continue routine Thiamine, Folic acid, and MVI for EtOH hx Addendum: 06/05/21 at [address] Amended: Links added.
[2021-06-05] MEDS: thiamine 100mg tablet PO SCH (08:17)
[2021-06-05] MEDS: apixaban 5mg tablet PO SCH ×2 (08:17→20:01)
[2021-06-05] MEDS: amiodarone 200mg tablet PO SCH ×3 (08:17→20:01)
[2021-06-05] MEDS: lansoprazole 15mg solutab NG SCH (08:17)
[2021-06-05] MEDS: fludrocortisone acetate 0.1mg tablet NG SCH ×3 (08:18→20:02)
[2021-06-05] MEDS: metoprolol succinate 25mg (24-HOUR) SR. Tablet PO SCH ×2 (08:19→20:02)
[2021-06-05] MEDS: furosemide 40mg/4ml inj IV SCH (08:19)
[2021-06-05] MEDS: folic acid 1mg tablet PO SCH (08:19)
[2021-06-05] MEDS: multivitamins, therapeutics tablet PO SCH (08:19)
[2021-06-05 11:00] VITALS: BP 105/58
[2021-06-05] MEDS: lactose-reduced food (Ensure Enlive) - 237ml bottle PO SCH (17:30)
[2021-06-05 18:00] VITALS: BP 110/54
[2021-06-05 22:00] VITALS: BP 103/53
[2021-06-06] MEDS: acetaminophen 325mg tablet PEG PRN ×3 (01:49→21:48)
[2021-06-06 02:00] VITALS: BP 113/65
[2021-06-06 06:00] VITALS: BP 133/74
[2021-06-06] MEDS: lactose-reduced food (Ensure Enlive) - 237ml bottle PO SCH ×2 (07:30→17:46)
[2021-06-06 07:48] LABS: BASOPHILS # (AUTO) 0.1 X10'3 (0-0.2); EOSINOPHILS # (AUTO) 0.3 X10'3 (0-0.9); HEMOGLOBIN 12.2 g/dl (14.0-17.9); LYMPHOCYTES # (AUTO) 2.2 X10'3 (1.1-4.8); MEAN PLATELET VOLUME 8.5 FL (7.4-10.4); MONOCYTES # (AUTO) 0.5 X10'3 (0-0.9); NEUTROPHILS # (AUTO) 3.7 X10'3 (1.8-7.7)
[2021-06-06 07:52] LABS: BASOPHILS % (AUTO) 1.3 % (0-1); EOSINOPHILS % (AUTO) 4.9 % (0-6); HEMATOCRIT 37.5 % (42.0-52.0); LYMPHOCYTES % (AUTO) 32.9 % (21-51); MEAN CORPUSCULAR HGB CONC 32.6 g/dL (33.0-36.5); MONOCYTES % (AUTO) 7.4 % (2-12); NEUTROPHILS % (AUTO) 53.5 % (42-75); PLATELET COUNT 235 X10'3 (140-440); RED BLOOD COUNT 4.36 X10'6 (4.70-6.10); RED CELL DISTRIBUTION WIDTH 14.8 % (11.5-14.5); WHITE BLOOD COUNT 6.8 X10'3 (4.5-11.0)
[2021-06-06 08:10] LABS: ALANINE AMINOTRANSFERASE 16 U/L (12-78); ALBUMIN/GLOBULIN RATIO 1.1 (1.1-1.5); ALKALINE PHOSPHATASE 127 IU/L (46-116); ANION GAP 7 (8-16); ASPARTATE AMINO TRANSFERASE 25 U/L (10-37); BILIRUBIN,TOTAL 0.4 MG/DL (0.1-1.0); BLOOD UREA NITROGEN 33 MG/DL (7-18); BUN/CREATININE RATIO 24.1 (5.4-32.0); CALCIUM 8.1 MG/DL (8.5-10.1); CHLORIDE 104 MMOL/L (99-107); CREATININE 1.37 MG/DL (0.60-1.10); GLUCOSE 83 MG/DL (70-104); POTASSIUM 3.3 MMOL/L (3.5-5.1); PREALBUMIN 12.9 MG/DL (19-36); SODIUM 141 MMOL/L (135-145); TOTAL CARBON DIOXIDE 29.9 MMOL/L (24-32); TOTAL PROTEIN 5.7 G/DL (6.4-8.2); eGFR 52 ML/MIN
[2021-06-06] MEDS: folic acid 1mg tablet PO SCH (08:32)
[2021-06-06] MEDS: metoprolol succinate 25mg (24-HOUR) SR. Tablet PO SCH ×2 (08:32→20:00)
[2021-06-06] MEDS: lansoprazole 15mg solutab NG SCH (08:33)
[2021-06-06] MEDS: thiamine 100mg tablet PO SCH (08:33)
[2021-06-06] MEDS: multivitamins, therapeutics tablet PO SCH (08:33)
[2021-06-06] MEDS: apixaban 5mg tablet PO SCH ×2 (08:34→20:00)
[2021-06-06] MEDS: fludrocortisone acetate 0.1mg tablet NG SCH ×3 (08:34→20:00)
[2021-06-06] MEDS: furosemide 40mg/4ml inj IV SCH (08:34)
[2021-06-06] MEDS: amiodarone 200mg tablet PO SCH ×3 (08:34→20:00)
[2021-06-06 11:00] VITALS: BP 113/67
[2021-06-06 15:00] VITALS: BP 123/79
[2021-06-06 18:00] VITALS: BP 131/59
[2021-06-06 22:00] VITALS: BP 100/56
[2021-06-07 02:00] VITALS: BP 118/68
[2021-06-07 06:00] VITALS: BP 98/54
[2021-06-07 07:01] LABS: BASOPHILS # (AUTO) 0.1 X10'3 (0-0.2); EOSINOPHILS # (AUTO) 0.4 X10'3 (0-0.9); MEAN CORPUSCULAR HGB CONC 32.9 g/dL (33.0-36.5); MEAN CORPUSCULAR VOLUME 86.6 FL (78-98); NEUTROPHILS # (AUTO) 4.5 X10'3 (1.8-7.7)
[2021-06-07 07:04] LABS: BASOPHILS % (AUTO) 1.1 % (0-1); EOSINOPHILS % (AUTO) 4.9 % (0-6); HEMOGLOBIN 12.1 g/dl (14.0-17.9); LYMPHOCYTES # (AUTO) 2.6 X10'3 (1.1-4.8); LYMPHOCYTES % (AUTO) 32.1 % (21-51); MEAN CORPUSCULAR HEMOGLOBIN 28.4 PG (27.0-31.0); MEAN PLATELET VOLUME 8.5 FL (7.4-10.4); MONOCYTES # (AUTO) 0.6 X10'3 (0-0.9); MONOCYTES % (AUTO) 6.7 % (2-12); NEUTROPHILS % (AUTO) 55.2 % (42-75); PLATELET COUNT 277 X10'3 (140-440); RED BLOOD COUNT 4.27 X10'6 (4.70-6.10); RED CELL DISTRIBUTION WIDTH 14.5 % (11.5-14.5); WHITE BLOOD COUNT 8.2 X10'3 (4.5-11.0)
[2021-06-07 07:27] LABS: ALANINE AMINOTRANSFERASE 19 U/L (12-78); ALBUMIN 3.2 G/DL (3.4-5.0); ALBUMIN/GLOBULIN RATIO 1.1 (1.1-1.5); ALKALINE PHOSPHATASE 135 IU/L (46-116); ANION GAP 9 (8-16); ASPARTATE AMINO TRANSFERASE 22 U/L (10-37); BILIRUBIN,TOTAL 0.4 MG/DL (0.1-1.0); BLOOD UREA NITROGEN 38 MG/DL (7-18); CALCIUM 8.4 MG/DL (8.5-10.1); CHLORIDE 99 MMOL/L (99-107); CREATININE 1.52 MG/DL (0.60-1.10); GLUCOSE 80 MG/DL (70-104); POTASSIUM 3.5 MMOL/L (3.5-5.1); SODIUM 139 MMOL/L (135-145); TOTAL CARBON DIOXIDE 30.7 MMOL/L (24-32); eGFR 46 ML/MIN
[2021-06-07] MEDS: multivitamins, therapeutics tablet PO SCH (08:39)
[2021-06-07] MEDS: thiamine 100mg tablet PO SCH (08:39)
[2021-06-07] MEDS: fludrocortisone acetate 0.1mg tablet NG SCH ×2 (08:39→12:45)
[2021-06-07] MEDS: apixaban 5mg tablet PO SCH (08:39)
[2021-06-07] MEDS: metoprolol succinate 25mg (24-HOUR) SR. Tablet PO SCH (08:39)
[2021-06-07] MEDS: lansoprazole 15mg solutab NG SCH (08:39)
[2021-06-07] MEDS: furosemide 40mg/4ml inj IV SCH (08:40)
[2021-06-07] MEDS: folic acid 1mg tablet PO SCH (08:41)
[2021-06-07] MEDS: acetaminophen 325mg tablet PEG PRN (08:45)
[2021-06-07] MEDS: amiodarone 200mg tablet PO SCH (12:45)
--- NOTE | 2021-06-07 14:25 | NUR ---
Discharged. Teaching /instructions given,instructed follow-up appt to [facility] on 06/10/21. Telemetry/IV discontinued/removed. Questions answered. Pt discharge to personal vehicle accompanied by staff and spouse. Pt states have cellphone, but missing old white pair of tennis shoes and black velvet cowboy hat. Spouse states shes not sure if belongings at the home.
== END 2021-06-07 14:05 | disposition home or self-care (01) | DRG 896 ==
LOC: ER 13:53 → UNDOADMIN 05-24 03:16 → ED HOLD 05-24 03:16 → ICU 2S 05-24 05:16 → ED HOLD 05-24 05:16 → PCU 3S 05-25 21:30
PROVIDERS: ADMIT Surgery; ATTEND Surgery
DX: F15.10 Other stimulant abuse, uncomplicated (principal); J69.0 Pneumonitis due to inhalation of food and vomit; I50.23 Acute on chronic systolic (congestive) heart failure; N17.0 Acute kidney failure with tubular necrosis; G92.8 Other toxic encephalopathy; J96.01 Acute respiratory failure with hypoxia; I13.0 Hypertensive heart and chronic kidney disease with heart failure and stage 1 through stage 4 chronic kidney disease, or unspecified chronic kidney disease; E46 Unspecified protein-calorie malnutrition; F05 Delirium due to known physiological condition; I96 Gangrene, not elsewhere classified; F10.231 Alcohol dependence with withdrawal delirium; F41.9 Anxiety disorder, unspecified; G43.909 Migraine, unspecified, not intractable, without status migrainosus; E87.6 Hypokalemia; G89.29 Other chronic pain; M54.9 Dorsalgia, unspecified; M79.605 Pain in left leg; I48.91 Unspecified atrial fibrillation; N18.9 Chronic kidney disease, unspecified; Z78.1 Physical restraint status; Z79.01 Long term (current) use of anticoagulants; Z87.440 Personal history of urinary (tract) infections; Z82.49 Family history of ischemic heart disease and other diseases of the circulatory system; Z79.899 Other long term (current) drug therapy; Z68.29 Body mass index [BMI] 29.0-29.9, adult
CPT/HCPCS: 36415; 36600; 70450; 71045; 80048; 80053; 80305; 80320; 81001; 82140; 82150; 82803; 82948; 83605; 83690; 83735; 83880; 84100; 84132; 84134; 84484; 85007; 85018; 85025; 85610; 87081; 92508; 92616; 93005; 93306; 94640; 94760; 97110; 97116; 97161; 97530; 97535; 99291; 99292; G0378; J0282; J0456; J0696; J1940; J2060; J2370; J3360; J3411; J3490; J7030; J7040; J7050; J7070; P9047

== ENCOUNTER 2021-08-01 16:54 | Emergency (ER) | payer BC, MEDICAID ==
[~2021-08-01] VITALS: Ht 193 cm; Wt 109.1 kg
[~2021-08-01 16:54] MED LIST changes: -FERR325T29 PO; -FLUD0.1T PO; -FURO-150 PO; -IPRA3AMP9 NEB; +MULT-25 PO; +OMEP40CA21 PO; -PANT40TA54 PO; -POTA10TA37 PO; +PRED10TA23 PO; -SACU1TAB PO; -folic acid tablet PO; -thiamine tablet PO
[2021-08-01] MEDS ORDERED: bacitracin 15gm ointment TP ONE (19:30)
[2021-08-01] MEDS ORDERED: TETanus/Pertussis (Acell)/Diphther VAC/PF (Tdap-Adult) 0.5ml syringe IMVAC ONE (19:30)
[2021-08-01 20:17] VITALS: BP 133/81
== END 2021-08-01 20:59 | disposition home or self-care (01) ==
LOC: ER 16:55
DX: T20.26XA Burn of second degree of forehead and cheek, initial encounter (principal); T20.24XA Burn of second degree of nose (septum), initial encounter; J44.9 Chronic obstructive pulmonary disease, unspecified; T20.22XA Burn of second degree of lip(s), initial encounter; G43.909 Migraine, unspecified, not intractable, without status migrainosus; I48.91 Unspecified atrial fibrillation; I11.0 Hypertensive heart disease with heart failure; I50.9 Heart failure, unspecified; G89.29 Other chronic pain; Z85.6 Personal history of leukemia; Z86.2 Personal history of diseases of the blood and blood-forming organs and certain disorders involving the immune mechanism; F17.200 Nicotine dependence, unspecified, uncomplicated; F12.90 Cannabis use, unspecified, uncomplicated; Z72.89 Other problems related to lifestyle; Z79.899 Other long term (current) drug therapy; X08.8XXA Exposure to other specified smoke, fire and flames, initial encounter; Y93.89 Activity, other specified; Y92.89 Other specified places as the place of occurrence of the external cause; Y99.8 Other external cause status
CPT/HCPCS: 16000; 90471; 90715; 99283